=== PATIENT | male | born 1935 | race Caucasian/White ===

== ENCOUNTER 2016-11-27 11:49 | Emergency (ER) | payer MEDICARE, MEDICAID ==
[2016-11-27 11:49] VITALS: BMI 28.3
--- NOTE | 2016-11-27 13:19 | RAD ---
PROCEDURE: CHEST RADIOGRAPH, 1 VIEW HISTORY: s/p fall COMPARISON: 10/29/2015. FINDINGS: LUNGS: There are chronic changes in both lungs and linear atelectasis/scarring in the left lower lobe. PLEURA: No pneumothorax or pleural fluid seen. CARDIOVASCULAR: The heart is enlarged. There is unfolding of the aorta. Atherosclerotic aortic arch calcifications are present. OSSEOUS STRUCTURES: No significant abnormalities. VISUALIZED UPPER ABDOMEN: Normal. OTHER FINDINGS: None. IMPRESSION: Linear atelectasis/ scarring in the left lower lobe. No active pulmonary disease.
--- NOTE | 2016-11-27 14:31 | C.PDOC ---
History Of Present Illness Pt fell while coming out of the shower. Witnessed by home health aid. No head injury or LOC. Denies dizziness. - HPI Time Seen by Provider: 11/27/16 12:03 Chief Complaint (Nursing): Trauma History Per: Patient, Family (Daughter), Other (Home health aid) Injury Occurred (Timing): Just Before Arrival Location Of Injury: Right: Back, Shoulder Severity: Moderate - Fall Fall:Prior To Injury: Slipped, Lost Balance Past Medical History Reviewed: Historical Data, Nursing Documentation, Vital Signs Vital Signs: Last Vital Signs Temp 97.8 F 11/27/16 14:21 Pulse 94 H 11/27/16 14:21 Resp 18 11/27/16 14:21 BP 156/84 H 11/27/16 14:21 Pulse Ox 94 L 11/27/16 14:33 - Medical History PMH: HTN, Hypercholesterolemia, Hyperlipidemia, Hypothyroidism Family History: States: Unknown Family Hx - Social History Hx Alcohol Use: Yes (hx, pt denies alcohol) Hx Substance Use: No - Immunization History Hx Tetanus Toxoid Vaccination: No Hx Influenza Vaccination: No Hx Pneumococcal Vaccination: Yes Review Of Systems Except As Marked, All Systems Reviewed And Found Negative. Constitutional: Negative for: Fever Cardiovascular: Negative for: Chest Pain Respiratory: Negative for: Shortness of Breath, Hemoptysis Gastrointestinal: Negative for: Vomiting, Abdominal Pain Musculoskeletal: Positive for: Shoulder Pain (right). Negative for: Neck Pain Skin: Negative for: Rash Neurological: Negative for: Weakness, Numbness, Seizures, Altered Mental Status , Headache Physical Exam - Physical Exam Appears: Non-toxic, No Acute Distress Skin: Normal Color, Warm, Dry, No Rash Head: Atraumatic, Normacephalic Eye(s): bilateral: Normal Inspection, PERRL, EOMI Neck: Normal ROM, No Midline Cervical Tenderness, No Step Off Deformity, Supple Chest: Symmetrical, No Deformity Cardiovascular: Rhythm Regular Respiratory: Normal Breath Sounds, No Accessory Muscle Use Gastrointestinal/Abdominal: Soft, No Tenderness Back: No Vertebral Tenderness Extremity: Tenderness (around right shoulder region), No Deformity Pulses: Right Radial: Normal Neurological/Psych: Normal Motor, Normal Sensation ED Course And Treatment - Radiology CXR: Viewed By Me, Read By Radiologist CXR Interpretation: Yes: No Acute Disease Nexus Criteria: Negative - Other Rad Right shoulder/elbow x-rays X-Ray: Interpreted by Me, Viewed By Me Interpretation: No acute fx or dislocation. Progress Note: Pt states pain resolved after Tylenol. Right arm placed in a sling. Reassessment Condition: Improved Disposition Counseled Patient/Family Regarding: Studies Performed, Diagnosis, Need For Followup, Rx Given - Disposition Referrals: Angelic More MD [Medical Doctor] - Disposition Time: 14:39 Condition: IMPROVED Additional Instructions: Follow up with your doctor. Return to the ER if you develop redness, swelling, weakness, numbness, shortness of breath, worsening of symptoms or if you have any other concerns. Prescriptions: traMADol/Acetaminophen [Ultracet 325 MG-37.5 MG] 1 tab PO Q4 PRN #30 tab PRN Reason: Pain Instructions: Fall Prevention for Older Adults (ED), Shoulder Sprain (ED) Forms: [employer] (Danish) - Clinical Impression Clinical Impression: Right shoulder injury, Fall at home
[2016-11-27 14:50] VITALS: BP 174/94; PULSE 76; RESP 20; TEMP 97.5; O2SAT 98
--- NOTE | 2016-11-27 16:14 | RAD ---
PROCEDURE: Radiographs of the right elbow. HISTORY: Pain s/p fall COMPARISON: No prior. FINDINGS: BONES: Coronoid spurring. No fracture. JOINTS: Normal. No osteoarthritis. SOFT TISSUES: Normal. JOINT EFFUSION: None. OTHER FINDINGS: None. IMPRESSION: No fracture or gross dislocation. Study is obliqued. Recommend repeat true lateral view for more optimal assessment
--- NOTE | 2016-11-27 16:21 | RAD ---
HISTORY: Upper back pain s/p fall COMPARISON: No prior. FINDINGS: BONES: There is compression deformity at the thoraco lumbar junction on the lateral view and compression deformities and/or prominent Schmorl's node indentation superior endplate concave margins of the upper lumbar spine also suggested. No gross retropulsed ossific fragments noted. DISC SPACES: Thoraco lumbar disc space narrowing SOFT TISSUES: Normal. OTHER FINDINGS: IMPRESSION: Generalized osteopenia, diffuse thoraco lumbar spondylosis with a compression deformities at the thoracolumbar junction probably involving the upper lumbar spine -the chronicity of which is unknown. Findings were called in to the ER and given to Dr. Sterling on November 27 2016 at 4:20 p.m.. Lumbar spine x-ray imaging as well .
--- NOTE | 2016-11-27 16:29 | RAD ---
PROCEDURE: Radiographs of the Right Shoulder HISTORY: Pain s/p fall COMPARISON: No prior. FINDINGS: BONES: A fracture of the inferior scapula which appears slightly displaced on these views is suggested. . Concomitant right rib fracture(s) -possibly the right 6th lateral fracture also needs to be considered JOINTS: The acromioclavicular joint is arthropathic. No glenohumeral joint dislocation seen. Glenohumeral arthrosis also suggested. SOFT TISSUES: Normal. OTHER FINDINGS: IMPRESSION: Inferior comminuted right scapular fracture. Concomitant right lateral rib fracture possibly lateral right 6th rib fracture also suspect. No gross pneumothorax seen on available images Findings were also called in to the ER and directly given to Dr. Sterling on 11/27/2016 at 4:25 p.m.
--- NOTE | 2016-11-28 12:24 | CARD ---
APPROVED REPORT EKG Measurement Heart [id number] <Conclusion> Normal sinus rhythm Left axis deviation Left ventricular hypertrophy with repolarization abnormality Abnormal ECG
== END 2016-11-27 14:54 | disposition home or self-care (01) ==
LOC: C.ER 11:49
DX: S49.91XA Unspecified injury of right shoulder and upper arm, initial encounter (principal); W01.0XXA Fall on same level from slipping, tripping and stumbling without subsequent striking against object, initial encounter; Y93.89 Activity, other specified; Y92.002 Bathroom of unspecified non-institutional (private) residence as the place of occurrence of the external cause

== ENCOUNTER 2017-01-19 21:51 | Inpatient (IN) | payer MEDICARE, MEDICAID ==
--- NOTE | 2017-01-19 22:00 | C.PDOC ---
History Of Present Illness as per family, pt woke up with low grade fever, . in the afternood, after eating took a nap and woke up more confused , 89-90 % saturation and febrile. Family gave 1000 mg po tylenol around 8PM. States he also had some chills. Time Seen by Provider: 01/19/17 21:56 Chief Complaint (Nursing): Weakness/Neurological Deficit Past Medical History Reviewed: Historical Data, Nursing Documentation, Vital Signs Vital Signs: Last Vital Signs Temp 102.3 F H 01/19/17 23:32 Pulse 107 H 01/19/17 23:32 Resp 16 01/19/17 23:32 BP 108/69 01/19/17 23:32 Pulse Ox 93 L 01/19/17 23:32 - Medical History PMH: HTN, Hypercholesterolemia, Hyperlipidemia, Hypothyroidism Denies: Chronic Kidney Disease Family History: States: No Known Family Hx - Social History Hx Alcohol Use: Yes (hx, pt denies alcohol) Hx Substance Use: No - Immunization History Hx Tetanus Toxoid Vaccination: No Hx Influenza Vaccination: No Hx Pneumococcal Vaccination: Yes Review Of Systems Review Of Systems: ROS cannot be obtained secondary to pt's inabilty to answer questions. Physical Exam - Physical Exam Appears: Non-toxic, Confused Skin: Dry Head: Normacephalic Eye(s): bilateral: Normal Inspection Oral Mucosa: Dry Neck: Trachea Midline, Supple Chest: Symmetrical Cardiovascular: Rhythm Regular (tachy) Respiratory: Decreased Breath Sounds, No Rales, Rhonchi, No Wheezing Gastrointestinal/Abdominal: Soft, No Tenderness, No Distention Back: No CVA Tenderness Extremity: No Tenderness, No Pedal Edema Extremity: Bilateral: Atraumatic, No Pedal Edema, Normal Color And Temperature Pulses: Left Dorsalis Pedis: Normal, Right Dorsalis Pedis: Normal Neurological/Psych: Slow To Respond With Command, Other (aaox1, 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 No: Fracture, Pnemothorax Progress Note: 10:55 pm code sepsis called. 11pm pt feels better. vitals stable Critical Care Time - Critical Care Note Total Time (in mins): 30 Documented critical care: time excludes all time spent performing seperately billable procedures. Disposition Discussed With : Veronica Carter Comment: accepted the pt on his service and took over the care at 11:01 PM Doctor Will See Patient In The: Hospital Counseled Patient/Family Regarding: Studies Performed, Diagnosis - Disposition Disposition: HOSPITALIZED Disposition Time: 22:00 Condition: GUARDED - POA Present On Arrival: Poor Glycemic Control - Clinical Impression Clinical Impression: Pneumonia, UTI (urinary tract infection)
[2017-01-19 22:01] VITALS: BMI 25.0
[2017-01-19] MEDS ORDERED: Sodium Chloride 0.9% 1,000 ML IV ONE (22:01)
[2017-01-19] MEDS: Albuterol-Ipratrop 3 mg / 0.5 (3 ml) UD IH SCH ×3 (22:15→22:45)
[2017-01-19 22:27] LABS: BASO % 0.2 % (0.0-2.0); HEMATOCRIT 47.2 % (35.0-51.0); LYMPH # 0.3 K/uL (1.0-4.3); LYMPH % 1.6 % (20.0-40.0); MEAN CELL VOLUME 96.4 fL (80.0-94.0); MEAN CORPUSCULAR HEMOGLOBIN 31.9 pg (27.0-31.0); MEAN CORPUSCULAR HGB CONC 33.1 g/dL (33.0-37.0); MEAN PLATELET VOLUME 10.2 fL (7.2-11.7); MONO # 0.4 K/uL (0.0-0.8); MONO % 2.2 % (0.0-10.0); PLATELET COUNT 200 K/uL (130-400); RED CELL DISTRIBUTION WIDTH 15.2 % (11.5-14.5); WHITE BLOOD COUNT 15.8 K/uL (4.8-10.8)
[2017-01-19 22:32] LABS: RBC URINE 17 /hpf (0-3); URINE BACTERIA MANY (<OCC); URINE BILIRUBIN NEGATIVE (NEGATIVE); URINE BLOOD 2+ (NEGATIVE); URINE COLOR Yellow (YELLOW); URINE GLUCOSE (UA) NORMAL (Normal); URINE KETONE TRACE mg/dL (NEGATIVE); URINE LEUKOCYTE ESTERASE 3+ Leu/uL (Negative); URINE PROTEIN 1+ mg/dL (NEGATIVE); URINE UROBILINOGEN NORMAL mg/dL (0.2-1.0); WBC CLUMPS MANY /hpf; WBC URINE 343 /hpf (0-5)
[2017-01-19] MEDS ORDERED: Albuterol-Ipratrop 3 mg / 0.5 (3 ml) UD ONE (22:32)
[2017-01-19] MEDS ORDERED: cefTRIAXone IV 1 gm in Dextros 50 ML IVPB ONE ×2 (22:35→22:41)
[2017-01-19] MEDS ORDERED: Azithromycin 500mg/250ML NS 500 MG/250 ML BAG IVPB STA (22:35)
[2017-01-19 22:36] LABS: INR 1.1
[2017-01-19 22:39] LABS: VENOUS BLOOD GAS BASE EXCESS -1.1 mmol/L (0.0-2.0); VENOUS BLOOD GAS PCO2 38 mmHg (40-60)
[2017-01-19] MEDS ORDERED: Azithromycin 500mg/250ML NS 500 MG/250 ML BAG IVPB ONE (22:41)
[2017-01-19 22:54] LABS: NEUTROPHIL 95 % (50-75); TOTAL CELLS COUNTED 100
[2017-01-19 22:56] LABS: CHLORIDE 105 mmol/L (98-107)
[2017-01-19 22:57] LABS: POTASSIUM 3.4 mmol/L (3.6-5.2); SODIUM 141 mmol/L (132-148)
[2017-01-19 22:59] LABS: ALKALINE PHOSPHATASE 267 U/L (38-126); ALT/SGPT 46 U/L (21-72); AST/SGOT 64 U/L (17-59); BILIRUBIN,TOTAL 0.8 mg/dL (0.2-1.3); BLOOD UREA NITROGEN 20 mg/dL (9-20); CARBON DIOXIDE 21 mmol/L (22-30); GFR AFRICAN-AMERICAN > 60; TOTAL PROTEIN 6.6 g/dL (6.3-8.3)
[2017-01-19 23:00] LABS: CALCIUM 8.8 mg/dl (8.6-10.4); GLUCOSE,RANDOM 207 mg/dL (75-110)
[2017-01-20] MEDS: Piperacill/Tazo 3.375gm in Dex 3.375 GM/50 ML BAG IVPB SCH ×4 (00:33→17:47)
[2017-01-20 01:07] LABS: VENOUS BLOOD GAS BASE EXCESS -5.5 mmol/L (0.0-2.0); VENOUS BLOOD GAS PCO2 28 mmHg (40-60); VENOUS BLOOD PH 7.41 (7.32-7.43)
[2017-01-20] MEDS: Levothyroxine 200 MCG TAB PO SCH (05:59)
--- NOTE | 2017-01-20 08:05 | RAD ---
Chest x-ray single frontal view History: Shortness of breath. Comparison: None available. Findings: Biapical pleural thickening with upper lobe granulomatous changes. Moderate venous congestion. Patchy confluent bibasilar airspace opacities with small loculated left and trace right pleural effusion. Tortuous ectatic aorta. Cardiomegaly. Degenerative changes in the spine with paravertebral osteophytes. Impression: Biapical pleural thickening with upper lobe granulomatous changes. Moderate venous congestion. Patchy confluent bibasilar airspace opacities with small loculated left and trace right pleural effusion. Tortuous ectatic aorta. Cardiomegaly.
[2017-01-20] MEDS: (Novolog) Insulin Aspart, Recombinant 100 u/ml 10 ml vial SC SCH ×4 (08:30→21:45)
[2017-01-20] MEDS ORDERED: DUTASTERIDE 0.5 MG PO SCH (10:00)
[2017-01-20] MEDS ORDERED: MEMANTINE HCL 10 MG PO SCH (10:00)
[2017-01-20] MEDS ORDERED: Home Med 1 UNIT (Multivitamin [Multivitamins] 1 EACH) PO SCH (10:00)
[2017-01-20] MEDS: Enoxaparin 40 mg Syringe SC SCH (10:35)
--- NOTE | 2017-01-20 11:16 | CP.PCM.HP ---
History of Present Illness - History of Present Illness History of Present Illness: 81 y/o male brought in for fever and AMS. Pt is found to have PNA and UTI. Denies CP, SOB, Abd pain or dizziness. Reports cough Present on Admission - Present on Admission Any Indicators Present on Admission: No History of DVT/PE: No History of Uncontrolled Diabetes: No Urinary Catheter: No Decubitus Ulcer Present: No Review of Systems - Review of Systems All systems: reviewed and no additional remarkable complaints except (As mentioned in HPI) Past Patient History - Infectious Disease Hx of Infectious Diseases: None - Past Medical History & Family History Past Medical History?: Yes - Past Social History Smoking Status: Never Smoked - CARDIAC Hx Cardiac Disorders: Yes Hx Hypercholesterolemia: Yes Hx Hypertension: Yes - PULMONARY Hx Respiratory Disorders: No - NEUROLOGICAL Hx Neurological Disorder: Yes HX Cerebrovascular Accident: Yes Hx Dementia: Yes - HEENT Hx HEENT Problems: No - RENAL Hx Chronic Kidney Disease: No - ENDOCRINE/METABOLIC Hx Endocrine Disorders: Yes Hx Hypothyroidism: Yes - HEMATOLOGICAL/ONCOLOGICAL Hx Blood Disorders: No - INTEGUMENTARY Hx Dermatological Problems: No - MUSCULOSKELETAL/RHEUMATOLOGICAL Hx Musculoskeletal Disorders: No Hx Falls: No - GASTROINTESTINAL Hx Gastrointestinal Disorders: No - GENITOURINARY/GYNECOLOGICAL Hx Genitourinary Disorders: Yes Hx Prostate Problems: Yes - PSYCHIATRIC Hx Psychophysiologic Disorder: No Hx Substance Use: No - SURGICAL HISTORY Hx Surgeries: Yes Hx Thyroidectomy: Yes Other/Comment: prostate surgery - ANESTHESIA Hx Anesthesia: Yes Hx Anesthesia Reactions: No Hx Malignant Hyperthermia: No Meds Allergies/Adverse Reactions: Allergies Allergy/AdvReac Type Severity Reaction Status Date / Time No Known Allergies Allergy Verified 01/19/17 22:09 Physical Exam - Head Exam Head Exam: NORMAL INSPECTION, NORMOCEPHALIC - Eye Exam Eye Exam: Normal appearance - ENT Exam ENT Exam: Mucous Membranes Moist - Respiratory Exam Respiratory Exam: Rales, Rhonchi - Cardiovascular Exam Cardiovascular Exam: REGULAR RHYTHM, +S1, +S2 - GI/Abdominal Exam GI & Abdominal Exam: Normal Bowel Sounds, Soft - Extremities Exam Extremities exam: Positive for: normal inspection - Psychiatric Exam Psychiatric exam: Normal Affect Results - Vital Signs Recent Vital Signs: Last Vital Signs Temp 97.8 F 01/20/17 07:40 Pulse 71 01/20/17 07:40 Resp 20 01/20/17 07:40 BP 121/72 01/20/17 07:40 Pulse Ox 96 01/20/17 07:40 - Labs Result Diagrams: 01/19/17 22:24 01/19/17 22:43 Labs: Laboratory Results - last 24 hr 01/19/17 01/19/17 01/19/17 22:24 22:24 22:24 WBC 15.8 H D RBC 4.90 Hgb 15.6 D Hct 47.2 MCV 96.4 H MCH 31.9 H MCHC 33.1 RDW 15.2 H Plt Count 200 MPV 10.2 Neut % (Auto) 96.0 H Lymph % (Auto) 1.6 L [place] % (Auto) 2.2 Eos % (Auto) 0.0 Baso % (Auto) 0.2 Neut # 15.1 H Lymph # 0.3 L [place] # 0.4 Eos # 0.0 Baso # 0.0 Neutrophils % (Manual) 95 H Band Neutrophils % 2 Lymphocytes % (Manual) 1 L Monocytes % (Manual) 2 Platelet Estimate Normal PT 12.4 H INR 1.1 APTT 36 H pO2 VBG pH VBG pCO2 VBG HCO3 VBG Total CO2 VBG O2 Sat (Calc) VBG Base Excess VBG Potassium Sodium Chloride Glucose Lactate Crit Value Called To Crit Value Called By Crit Value Read Back Blood Gas Notified Time Potassium Carbon Dioxide Anion Gap BUN Creatinine Est GFR ( Amer) Est GFR (Non-Af Amer) POC Glucose (mg/dL) Random Glucose Calcium Total Bilirubin AST ALT Alkaline Phosphatase NT-Pro-B Natriuret Pep Total Protein Albumin Globulin Albumin/Globulin Ratio Venous Blood Potassium Urine Color Yellow Urine Clarity Hazy Urine pH 6.0 Ur Specific [place] 1.015 Urine Protein 1+ H Urine Glucose (UA) Normal Urine Ketones Trace Urine Blood 2+ H Urine Nitrate Positive H Urine Bilirubin Negative Urine Urobilinogen Normal Ur Leukocyte Esterase 3+ H Urine WBC (Auto) 343 H Urine RBC (Auto) 17 H Urine WBC Clumps (Auto) Many H Ur Squamous Epith Cells 4 Urine Bacteria Many H Serum Ketones 01/19/17 01/19/17 01/20/17 22:30 22:43 01:00 WBC RBC Hgb Hct MCV MCH MCHC RDW Plt Count MPV Neut % (Auto) Lymph % (Auto) [place] % (Auto) Eos % (Auto) Baso % (Auto) Neut # Lymph # [place] # Eos # Baso # Neutrophils % (Manual) Band Neutrophils % Lymphocytes % (Manual) Monocytes % (Manual) Platelet Estimate PT INR APTT pO2 46 61 H VBG pH 7.40 7.41 VBG pCO2 38 L 28 L VBG HCO3 23.6 20.5 VBG Total CO2 24.7 18.6 L VBG O2 Sat (Calc) 84.8 H 94.0 H VBG Base Excess -1.1 L -5.5 L VBG Potassium 3.7 2.2 L* Sodium 139.0 141 142.0 Chloride 109.0 H 105 115.0 H Glucose 240 H 214 H Lactate 2.2 H 1.4 Crit Value Called To Constantin lloyd/rn 6t Crit Value Called By Eddy sainz/rt Crit Value Read Back Y Blood Gas Notified Time 110 Potassium 3.4 L Carbon Dioxide 21 L Anion Gap 18 BUN 20 Creatinine 1.0 Est GFR ( Amer) > 60 Est GFR (Non-Af Amer) > 60 POC Glucose (mg/dL) Random Glucose 207 H Calcium 8.8 Total Bilirubin 0.8 AST 64 H ALT 46 Alkaline Phosphatase 267 H NT-Pro-B Natriuret Pep 439 Total Protein 6.6 Albumin 3.3 L Globulin 3.3 Albumin/Globulin Ratio 1.0 Venous Blood Potassium 3.7 2.2 L* Urine Color Urine Clarity Urine pH Ur Specific [place] Urine Protein Urine Glucose (UA) Urine Ketones Urine Blood Urine Nitrate Urine Bilirubin Urine Urobilinogen Ur Leukocyte Esterase Urine WBC (Auto) Urine RBC (Auto) Urine WBC Clumps (Auto) Ur Squamous Epith Cells Urine Bacteria Serum Ketones Negative 01/20/17 07:08 WBC RBC Hgb Hct MCV MCH MCHC RDW Plt Count MPV Neut % (Auto) Lymph % (Auto) [place] % (Auto) Eos % (Auto) Baso % (Auto) Neut # Lymph # [place] # Eos # Baso # Neutrophils % (Manual) Band Neutrophils % Lymphocytes % (Manual) Monocytes % (Manual) Platelet Estimate PT INR APTT pO2 VBG pH VBG pCO2 VBG HCO3 VBG Total CO2 VBG O2 Sat (Calc) VBG Base Excess VBG Potassium Sodium Chloride Glucose Lactate Crit Value Called To Crit Value Called By Crit Value Read Back Blood Gas Notified Time Potassium Carbon Dioxide Anion Gap BUN Creatinine Est GFR ( Amer) Est GFR (Non-Af Amer) POC Glucose (mg/dL) 268 H Random Glucose Calcium Total Bilirubin AST ALT Alkaline Phosphatase NT-Pro-B Natriuret Pep Total Protein Albumin Globulin Albumin/Globulin Ratio Venous Blood Potassium Urine Color Urine Clarity Urine pH Ur Specific [place] Urine Protein Urine Glucose (UA) Urine Ketones Urine Blood Urine Nitrate Urine Bilirubin Urine Urobilinogen Ur Leukocyte Esterase Urine WBC (Auto) Urine RBC (Auto) Urine WBC Clumps (Auto) Ur Squamous Epith Cells Urine Bacteria Serum Ketones Assessment & Plan - Assessment and Plan (Free Text) Assessment: UTI PNA AMS HTN DM Zosyn and vanco Sterling cultures ID consult Losartan Accucheck Hyperglycemic control Add Promethazine DVT/GI prophalaxis
[2017-01-20] MEDS: Aspirin-Dipyridamole 200-25 mg ER Cap PO SCH ×2 (11:37→21:33)
[2017-01-20] MEDS: Multiple Vitamins Tab PO SCH (11:38)
--- NOTE | 2017-01-20 15:15 | CP.PCM.CON ---
History of Present Illness - History of Present Illness History of Present Illness: 81 yo male admitted with fever and lethargy found to have hypoxemia and infiltrates on cxr started on IV antibiotic rx - Medical History PMH: HTN, Hypercholesterolemia, Hyperlipidemia, Hypothyroidism Review of Systems - Review of Systems All systems: reviewed and no additional remarkable complaints except - Constitutional Constitutional: As Per HPI - EENT Eyes: absent: As Per HPI, Blind Spots, Blurred Vision, Change in Vision, Decreased Night Vision, Diplopia, Discharge, Dry Eye, Exophthalmos, Floaters, Irritation, Itchy Eyes, Loss of Peripheral Vision, Pain, Photophobia, Requires Corrective Lenses, Sees Flashes, Spots in Vision, Tunnel Vision, Other Visual Disturbances, Loss of Vision, Other Ears: absent: As Per HPI, Decreased Hearing, Ear Discharge, Ear Pain, Tinnitus, Abnormal Hearing, Disequilibrium, Dizziness, Other Nose/Mouth/Throat: absent: As Per HPI, Epistaxis, Nasal Congestion, Nasal Discharge, Nasal Obstruction, Nasal Trauma, Nose Pain, Post Nasal Drip, Sinus Pain, Sinus Pressure, Bleeding Gums, Change in Voice, Dental Pain, Dry Mouth, Dysphagia, Halitosis, Hoarsness, Lip Swelling, Mouth Lesions, Mouth Pain, Odynophagia, Sore Throat, Throat Swelling, Tongue Swelling, Facial Pain, Neck Pain, Neck Mass, Other - Cardiovascular Cardiovascular: absent: As Per HPI, Acrocyanosis, Chest Pain, Chest Pain at Rest , Chest Pain with Activity, Claudication, Diaphoresis, Dyspnea, Dyspnea on Exertion, Edema, Irregular Heart Rhythm, Pain Radiating to Arm/Neck/Jaw, Leg Edema, Leg Ulcers, Lightheadedness, Orthopnea, Palpitations, Paroxysmal Nocturnal Dyspnea, Pedal Edema, Radiating Pain, Rapid Heart Rate, Slow Heart Rate, Syncope, Other - Respiratory Respiratory: As Per HPI, Cough, Dyspnea. absent: Hemoptysis - Gastrointestinal Gastrointestinal: absent: As Per HPI, Abdominal Pain, Belching, Bloating, Change in Bowel Habits, Change in Stool Character, Coffee Ground Emesis, Constipation, Cramping, Diarrhea, Dyspepsia, Dysphagia, Early Satiety, Excessive Flatus, Fecal Incontinence, Heartburn, Hematemesis, Hematochezia, Loose Stools, Melena, Nausea, Odynophagia, Temesmus, Vomiting, Other - Genitourinary Genitourinary: absent: As Per HPI, Change in Urinary Stream, Difficulty Urinating, Dysuria, Flank Pain, Hematuria, Pyuria, Nocturia, Urinary Incontinence, Urinary Frequency, Urinary Hesitance, Urinary Urgency, Voiding Freq/Small Amts, Freq UTI, Hx Renal/Bladder Calculi, Hx /Renal Surgery, Bladder Distension, Other - Musculoskeletal Musculoskeletal: absent: As Per HPI, Abnormal Gait, Arthralgias, Atrophy, Back Pain, Deformity, Joint Swelling, Limited Range of Motion, Loss of Height, Muscle Cramps, Muscle Weakness, Myalgias, Neck Pain, Numbness, Radiating Pain into Limb, Stiffness, Tingling, Other - Integumentary Integumentary: absent: As Per HPI, Acne, Alopecia, Bleeding Lesions, Change in Hair, Change in Nails, Change in Pigmentation, Changing Lesions, Dry Skin, Erythema, Furuncle, Hirsutism, Lesions, New Lesions, Non-Healing Lesions, Photosensitivity, Pruritus, Rash, Skin Pain, Skin Ulcer, Sores, Striae, Swelling , Unusual Bruising, Wounds, Jaundice, Other - Neurological Neurological: absent: As Per HPI, Abnormal Gait, Abnormal Hearing, Abnormal Movements, Abnormal Speech, Behavioral Changes, Burning Sensations, Confusion, Convulsions, Disequilibrium, Dizziness, Numbness, Focal Weakness, Frequent Falls , Headaches, Lack of Coordination, Loss of Vision, Memory Loss, Paresthesias, Radicular Pain, Restless Legs, Sensory Deficit, Syncope, Tingling, Tremor, Vertigo, Weakness, Other Visual Disturbances, Other - Psychiatric Psychiatric: absent: As Per HPI, Abnormal Sleep Pattern, Anhedonia, Anxiety, Auditory Hallucinations, Behavioral Changes, Change in Appetite, Change in Libido, Confusion, Depression, Difficulty Concentrating, Hallucinations, Homicidal Ideation, Hopelessness, Irritability, Memory Loss, Mood Swings, Panic Attacks, Paranoia, Suicidal Ideation, Visual Hallucinations, Tactile Hallucinations, Other - Endocrine Endocrine: absent: As Per HPI, Change in Body Appearance, Change in Libido, Cold Intolorance, Deepening of Voice, Excessive Sweating, Fatigue, Flushing, Heat Intolorance, Increase in Ring/Shoe/Hat Size, Palpitations, Polydipsia, Polyphagia, Polyuria, Other - Hematologic/Lymphatic Hematologic: absent: As Per HPI, Easy Bleeding, Easy Bruising, Lymphadenopathy, Other Past Patient History - Infectious Disease Hx of Infectious Diseases: None - Past Medical History & Family History Past Medical History?: Yes - Past Social History Smoking Status: Never Smoked - CARDIAC Hx Cardiac Disorders: Yes Hx Hypercholesterolemia: Yes Hx Hypertension: Yes - PULMONARY Hx Respiratory Disorders: No - NEUROLOGICAL Hx Neurological Disorder: Yes HX Cerebrovascular Accident: Yes Hx Dementia: Yes - HEENT Hx HEENT Problems: No - RENAL Hx Chronic Kidney Disease: No - ENDOCRINE/METABOLIC Hx Endocrine Disorders: Yes Hx Hypothyroidism: Yes - HEMATOLOGICAL/ONCOLOGICAL Hx Blood Disorders: No - INTEGUMENTARY Hx Dermatological Problems: No - MUSCULOSKELETAL/RHEUMATOLOGICAL Hx Musculoskeletal Disorders: No Hx Falls: No - GASTROINTESTINAL Hx Gastrointestinal Disorders: No - GENITOURINARY/GYNECOLOGICAL Hx Genitourinary Disorders: Yes Hx Prostate Problems: Yes - PSYCHIATRIC Hx Psychophysiologic Disorder: No Hx Substance Use: No - SURGICAL HISTORY Hx Surgeries: Yes Hx Thyroidectomy: Yes Other/Comment: prostate surgery - ANESTHESIA Hx Anesthesia: Yes Hx Anesthesia Reactions: No Hx Malignant Hyperthermia: No Meds Allergies/Adverse Reactions: Allergies Allergy/AdvReac Type Severity Reaction Status Date / Time No Known Allergies Allergy Verified 01/19/17 22:09 - Medications Medications: Current Medications Amiodarone HCl (Cordarone) 200 mg PO DAILY [facility] Last Admin: 01/20/17 10:35 Dose: 200 mg Amlodipine Besylate (Norvasc) 5 mg PO DAILY [facility] Last Admin: 01/20/17 10:35 Dose: 5 mg Dipyridamole/Aspirin (Aggrenox 25-200 Mg) 1 ea PO Q12 [facility] Last Admin: 01/20/17 11:37 Dose: 1 ea Donepezil HCl (Aricept) 10 mg PO DAILY [facility] Last Admin: 01/20/17 10:35 Dose: 10 mg Duloxetine HCl (Cymbalta) 30 mg PO [facility] Enoxaparin Sodium (Lovenox) 40 mg SC DAILY [facility] Last Admin: 01/20/17 10:35 Dose: 40 mg Home Med (Atorvastatin Calcium [Atorvastatin Calcium]) 40 mg PO [facility] Home Med (Dutasteride [Dutasteride]) 0.5 mg PO DAILY [facility] Last Admin: 01/20/17 11:38 Dose: Not Given Home Med (Memantine Hcl [Namenda Xr]) 10 mg PO DAILY [facility] Last Admin: 01/20/17 13:19 Dose: Not Given Piperacillin Sod/Tazobactam Sod (Zosyn 3.375 Gm Iv Premix) 3.375 gm in 50 mls @ 100 mls/hr IVPB Q6H [facility] Last Admin: 01/20/17 12:33 Dose: 100 mls/hr Influenza Virus Vaccine (Afluria) 45 mcg IM .ONCE ONE Stop: 01/22/17 10:01 Insulin Aspart (Novolog) 0 unit SC ACHS [facility] PRN Reason: Protocol Last Admin: 01/20/17 12:32 Dose: 2 unit Levothyroxine Sodium (Synthroid) 200 mcg PO DAILY@0630 [facility] Last Admin: 01/20/17 05:59 Dose: 200 mcg Lisinopril (Zestril) 10 mg PO DAILY [facility] Last Admin: 01/20/17 10:35 Dose: 10 mg Losartan Potassium (Cozaar) 50 mg PO DAILY [facility] Last Admin: 01/20/17 10:35 Dose: 50 mg Multivitamins (Hexavitamin) 1 tab PO DAILY [facility] Last Admin: 01/20/17 11:38 Dose: 1 tab Nitroglycerin (Nitrostat Sl Tab) 0.4 mg SL 5XD [facility] Last Admin: 01/20/17 14:13 Dose: Not Given Pneumococcal Polyvalent Vaccine (Pneumovax 23 Vaccine) 0.5 ml IM .ONCE ONE Stop: 01/22/17 10:01 Promethazine HCl (Phenergan Syrup) 12.5 mg PO Q6 PRN PRN Reason: Cough Tramadol HCl (Ultram) 50 mg PO Q8 PRN PRN Reason: Pain, moderate (4-7) Physical Exam - Constitutional Appears: Non-toxic, Chronically Ill - Head Exam Head Exam: ATRAUMATIC, NORMAL INSPECTION, NORMOCEPHALIC - Eye Exam Eye Exam: EOMI, PERRL. absent: Scleral icterus - ENT Exam ENT Exam: Mucous Membranes Dry, Normal External Ear Exam - Neck Exam Neck exam: Negative for: Lymphadenopathy - Respiratory Exam Respiratory Exam: Decreased Breath Sounds, Rales, Rhonchi, Wheezes - Cardiovascular Exam Cardiovascular Exam: REGULAR RHYTHM, +S1, +S2 - GI/Abdominal Exam GI & Abdominal Exam: Diminished Bowel Sounds, Distended, Soft. absent: Organomegaly, Pulsatile Mass, Rebound, Rigid, Tenderness - Rectal Exam Rectal Exam: Deferred - Exam Exam: NORMAL INSPECTION - Extremities Exam Extremities exam: Positive for: pedal pulses present. Negative for: calf tenderness, pedal edema, tenderness - Back Exam Back exam: absent: CVA tenderness (L), CVA tenderness (R), paraspinal tenderness - Neurological Exam Neurological exam: Alert, CN II-XII Intact, Oriented x3, Reflexes Normal - Psychiatric Exam Psychiatric exam: Normal Mood - Skin Skin Exam: Dry, Intact Results - Vital Signs Recent Vital Signs: Last Vital Signs Temp 97.8 F 01/20/17 07:40 Pulse 71 01/20/17 07:40 Resp 20 01/20/17 07:40 BP 121/72 01/20/17 07:40 Pulse Ox 96 01/20/17 07:40 - Labs Result Diagrams: 01/19/17 22:24 01/19/17 22:43 Labs: Laboratory Results - last 24 hr 01/19/17 01/19/17 01/19/17 22:24 22:24 22:24 WBC 15.8 H D RBC 4.90 Hgb 15.6 D Hct 47.2 MCV 96.4 H MCH 31.9 H MCHC 33.1 RDW 15.2 H Plt Count 200 MPV 10.2 Neut % (Auto) 96.0 H Lymph % (Auto) 1.6 L Christian % (Auto) 2.2 Eos % (Auto) 0.0 Baso % (Auto) 0.2 Neut # 15.1 H Lymph # 0.3 L Christian # 0.4 Eos # 0.0 Baso # 0.0 Neutrophils % (Manual) 95 H Band Neutrophils % 2 Lymphocytes % (Manual) 1 L Monocytes % (Manual) 2 Platelet Estimate Normal PT 12.4 H INR 1.1 APTT 36 H pO2 VBG pH VBG pCO2 VBG HCO3 VBG Total CO2 VBG O2 Sat (Calc) VBG Base Excess VBG Potassium Sodium Chloride Glucose Lactate Crit Value Called To Crit Value Called By Crit Value Read Back Blood Gas Notified Time Potassium Carbon Dioxide Anion Gap BUN Creatinine Est GFR ( Amer) Est GFR (Non-Af Amer) POC Glucose (mg/dL) Random Glucose Calcium Total Bilirubin AST ALT Alkaline Phosphatase NT-Pro-B Natriuret Pep Total Protein Albumin Globulin Albumin/Globulin Ratio Venous Blood Potassium Urine Color Yellow Urine Clarity Hazy Urine pH 6.0 Ur Specific [place] 1.015 Urine Protein 1+ H Urine Glucose (UA) Normal Urine Ketones Trace Urine Blood 2+ H Urine Nitrate Positive H Urine Bilirubin Negative Urine Urobilinogen Normal Ur Leukocyte Esterase 3+ H Urine WBC (Auto) 343 H Urine RBC (Auto) 17 H Urine WBC Clumps (Auto) Many H Ur Squamous Epith Cells 4 Urine Bacteria Many H Serum Ketones 01/19/17 01/19/17 01/20/17 22:30 22:43 01:00 WBC RBC Hgb Hct MCV MCH MCHC RDW Plt Count MPV Neut % (Auto) Lymph % (Auto) Christian % (Auto) Eos % (Auto) Baso % (Auto) Neut # Lymph # Christian # Eos # Baso # Neutrophils % (Manual) Band Neutrophils % Lymphocytes % (Manual) Monocytes % (Manual) Platelet Estimate PT INR APTT pO2 46 61 H VBG pH 7.40 7.41 VBG pCO2 38 L 28 L VBG HCO3 23.6 20.5 VBG Total CO2 24.7 18.6 L VBG O2 Sat (Calc) 84.8 H 94.0 H VBG Base Excess -1.1 L -5.5 L VBG Potassium 3.7 2.2 L* Sodium 139.0 141 142.0 Chloride 109.0 H 105 115.0 H Glucose 240 H 214 H Lactate 2.2 H 1.4 Crit Value Called To Constantin lloyd/rn 6t Crit Value Called By Eddy sainz/rt Crit Value Read Back Y Blood Gas Notified Time 110 Potassium 3.4 L Carbon Dioxide 21 L Anion Gap 18 BUN 20 Creatinine 1.0 Est GFR ( Amer) > 60 Est GFR (Non-Af Amer) > 60 POC Glucose (mg/dL) Random Glucose 207 H Calcium 8.8 Total Bilirubin 0.8 AST 64 H ALT 46 Alkaline Phosphatase 267 H NT-Pro-B Natriuret Pep 439 Total Protein 6.6 Albumin 3.3 L Globulin 3.3 Albumin/Globulin Ratio 1.0 Venous Blood Potassium 3.7 2.2 L* Urine Color Urine Clarity Urine pH Ur Specific [place] Urine Protein Urine Glucose (UA) Urine Ketones Urine Blood Urine Nitrate Urine Bilirubin Urine Urobilinogen Ur Leukocyte Esterase Urine WBC (Auto) Urine RBC (Auto) Urine WBC Clumps (Auto) Ur Squamous Epith Cells Urine Bacteria Serum Ketones Negative 01/20/17 01/20/17 07:08 11:57 WBC RBC Hgb Hct MCV MCH MCHC RDW Plt Count MPV Neut % (Auto) Lymph % (Auto) Christian % (Auto) Eos % (Auto) Baso % (Auto) Neut # Lymph # Christian # Eos # Baso # Neutrophils % (Manual) Band Neutrophils % Lymphocytes % (Manual) Monocytes % (Manual) Platelet Estimate PT INR APTT pO2 VBG pH VBG pCO2 VBG HCO3 VBG Total CO2 VBG O2 Sat (Calc) VBG Base Excess VBG Potassium Sodium Chloride Glucose Lactate Crit Value Called To Crit Value Called By Crit Value Read Back Blood Gas Notified Time Potassium Carbon Dioxide Anion Gap BUN Creatinine Est GFR ( Amer) Est GFR (Non-Af Amer) POC Glucose (mg/dL) 268 H 214 H Random Glucose Calcium Total Bilirubin AST ALT Alkaline Phosphatase NT-Pro-B Natriuret Pep Total Protein Albumin Globulin Albumin/Globulin Ratio Venous Blood Potassium Urine Color Urine Clarity Urine pH Ur Specific [place] Urine Protein Urine Glucose (UA) Urine Ketones Urine Blood Urine Nitrate Urine Bilirubin Urine Urobilinogen Ur Leukocyte Esterase Urine WBC (Auto) Urine RBC (Auto) Urine WBC Clumps (Auto) Ur Squamous Epith Cells Urine Bacteria Serum Ketones Assessment & Plan (1) Pneumonia Status: Acute (2) UTI (urinary tract infection) Status: Acute - Assessment and Plan (Free Text) Assessment: 81 yo male with fever ciough and infiltrates on cxr slowly improving on aantibiotics await cultures
[2017-01-20] MEDS: Promethazine 12.5 mg/10 ml Syrup PO PRN (21:46)
[2017-01-20 23:23] LABS: RBC URINE 19 /hpf (0-3); URINE BACTERIA FEW (<OCC); URINE BILIRUBIN NEGATIVE (NEGATIVE); URINE BLOOD 2+ (NEGATIVE); URINE COLOR Yellow (YELLOW); URINE GLUCOSE (UA) 1+ mg/dL (Normal); URINE KETONE NEGATIVE (NEGATIVE); URINE LEUKOCYTE ESTERASE 3+ Leu/uL (Negative); URINE PROTEIN 1+ mg/dL (NEGATIVE); URINE UROBILINOGEN NORMAL mg/dL (0.2-1.0); WBC URINE 186 /hpf (0-5)
[2017-01-21] MEDS: Piperacill/Tazo 3.375gm in Dex 3.375 GM/50 ML BAG IVPB SCH ×5 (00:30→23:58)
[2017-01-21] MEDS: Levothyroxine 200 MCG TAB PO SCH (05:58)
[2017-01-21] MEDS: (Novolog) Insulin Aspart, Recombinant 100 u/ml 10 ml vial SC SCH ×4 (08:16→21:47)
[2017-01-21 08:27] LABS: BASO # 0.1 K/uL (0.0-0.2); BASO % 0.5 % (0.0-2.0); EOS # 0.1 K/uL (0.0-0.7); EOS % 0.5 % (0.0-4.0); HEMATOCRIT 41.8 % (35.0-51.0); LYMPH # 1.1 K/uL (1.0-4.3); LYMPH % 7.8 % (20.0-40.0); MEAN CELL VOLUME 96.8 fL (80.0-94.0); MEAN CORPUSCULAR HEMOGLOBIN 31.7 pg (27.0-31.0); MEAN CORPUSCULAR HGB CONC 32.8 g/dL (33.0-37.0); MEAN PLATELET VOLUME 10.3 fL (7.2-11.7); MONO # 1.7 K/uL (0.0-0.8); MONO % 11.4 % (0.0-10.0); PLATELET COUNT 159 K/uL (130-400); RED CELL DISTRIBUTION WIDTH 15.1 % (11.5-14.5); WHITE BLOOD COUNT 14.5 K/uL (4.8-10.8)
[2017-01-21 08:43] LABS: CHLORIDE 105 mmol/L (98-107); POTASSIUM 3.2 mmol/L (3.6-5.2); SODIUM 141 mmol/L (132-148)
[2017-01-21 08:45] LABS: GFR AFRICAN-AMERICAN > 60
[2017-01-21 08:46] LABS: ALB/GLOB RATIO 0.8 (1.0-2.1); ALKALINE PHOSPHATASE 165 U/L (38-126); ALT/SGPT 52 U/L (21-72); AST/SGOT 48 U/L (17-59); BILIRUBIN,TOTAL 0.5 mg/dL (0.2-1.3); BLOOD UREA NITROGEN 19 mg/dL (9-20); CALCIUM 8.5 mg/dl (8.6-10.4); CARBON DIOXIDE 25 mmol/L (22-30); GLUCOSE,RANDOM 138 mg/dL (75-110); TOTAL PROTEIN 5.5 g/dL (6.3-8.3)
[2017-01-21] MEDS: Aspirin-Dipyridamole 200-25 mg ER Cap PO SCH ×2 (09:19→21:48)
[2017-01-21] MEDS: Multiple Vitamins Tab PO SCH (09:20)
[2017-01-21] MEDS: Enoxaparin 40 mg Syringe SC SCH (09:20)
[2017-01-21 09:49] LABS: BASOPHIL 1 % (0-2); NEUTROPHIL 79 % (50-75); TOTAL CELLS COUNTED 100
[2017-01-21 09:50] LABS: LARGE PLATELETS PRESENT
[2017-01-21] MEDS ORDERED: MEMANTINE HCL 10 MG PO SCH (10:00)
--- NOTE | 2017-01-21 11:15 | CP.PCM.PN ---
Subjective - Date & Time of Evaluation Date of Evaluation: 01/21/17 Time of Evaluation: 09:00 - Subjective Subjective: blood and urine c/s + Gram Neg Rods IV rx in progress consider eval cont rx for 14 days min Objective - Vital Signs/Intake and Output Vital Signs (last 24 hours): Temp Pulse Resp BP Pulse Ox 98.2 F 64 20 125/54 L 97 01/21/17 08:28 01/21/17 08:28 01/21/17 08:28 01/21/17 08:28 01/21/17 08:28 Intake and Output: 01/21/17 01/21/17 06:59 18:59 Intake Total 550 Balance 550 - Medications Medications: Current Medications Amiodarone HCl (Cordarone) 200 mg PO DAILY [facility] Last Admin: 01/21/17 09:19 Dose: 200 mg Amlodipine Besylate (Norvasc) 5 mg PO DAILY [facility] Last Admin: 01/21/17 09:19 Dose: 5 mg Dipyridamole/Aspirin (Aggrenox 25-200 Mg) 1 ea PO Q12 [facility] Last Admin: 01/21/17 09:19 Dose: 1 ea Donepezil HCl (Aricept) 10 mg PO DAILY [facility] Last Admin: 01/21/17 09:20 Dose: 10 mg Duloxetine HCl (Cymbalta) 30 mg PO HS [facility] Last Admin: 01/20/17 21:33 Dose: 30 mg Enoxaparin Sodium (Lovenox) 40 mg SC DAILY [facility] Last Admin: 01/21/17 09:20 Dose: 40 mg Finasteride (Proscar) 5 mg PO DAILY [facility] Last Admin: 01/21/17 09:19 Dose: 5 mg Home Med (Memantine Hcl [Namenda Xr]) 10 mg PO DAILY [facility] Piperacillin Sod/Tazobactam Sod (Zosyn 3.375 Gm Iv Premix) 3.375 gm in 50 mls @ 100 mls/hr IVPB Q6H [facility] Last Admin: 01/21/17 05:57 Dose: 100 mls/hr Influenza Virus Vaccine (Afluria) 45 mcg IM .ONCE ONE Stop: 01/22/17 10:01 Insulin Aspart (Novolog) 0 unit SC ACHS [facility] PRN Reason: Protocol Last Admin: 01/21/17 08:16 Dose: 1 unit Levothyroxine Sodium (Synthroid) 200 mcg PO DAILY@0630 [facility] Last Admin: 01/21/17 05:58 Dose: 200 mcg Lisinopril (Zestril) 10 mg PO DAILY [facility] Last Admin: 01/21/17 09:20 Dose: 10 mg Losartan Potassium (Cozaar) 50 mg PO DAILY [facility] Last Admin: 01/21/17 09:20 Dose: 50 mg Multivitamins (Hexavitamin) 1 tab PO DAILY [facility] Last Admin: 01/21/17 09:20 Dose: 1 tab Pneumococcal Polyvalent Vaccine (Pneumovax 23 Vaccine) 0.5 ml IM .ONCE ONE Stop: 01/22/17 10:01 Promethazine HCl (Phenergan Syrup) 12.5 mg PO Q6 PRN PRN Reason: Cough Last Admin: 01/20/17 21:46 Dose: 12.5 mg Rosuvastatin Calcium (Crestor) 20 mg PO HS [facility] Last Admin: 01/20/17 21:33 Dose: 20 mg Tramadol HCl (Ultram) 50 mg PO Q8 PRN PRN Reason: Pain, moderate (4-7) - Labs Labs: 01/21/17 08:17 01/21/17 08:17 PT 12.4 SECONDS (9.7-12.2) H 01/19/17 22:24 INR 1.1 01/19/17 22:24 APTT 36 SECONDS (21-34) H 01/19/17 22:24 - Constitutional Appears: Non-toxic, Chronically Ill - Head Exam Head Exam: NORMOCEPHALIC - Eye Exam Eye Exam: PERRL. absent: Scleral icterus - ENT Exam ENT Exam: Mucous Membranes Dry - Neck Exam Neck Exam: absent: Lymphadenopathy - Respiratory Exam Respiratory Exam: Decreased Breath Sounds - Cardiovascular Exam Cardiovascular Exam: REGULAR RHYTHM - GI/Abdominal Exam GI & Abdominal Exam: Distended, Soft Assessment and Plan (1) Pneumonia Status: Acute (2) UTI (urinary tract infection) Status: Acute - Assessment and Plan (Free Text) Plan: cont iv rx
[2017-01-21] MEDS ORDERED: Potassium Chloride 20 mEq/15 ml LIQ UD PO ONE (14:00)
--- NOTE | 2017-01-21 14:52 | US ---
Renal ultrasound History: Bacteremia. Urinary tract infection. Comparison: None available. Technique: Real-time sonography was performed through the kidneys. Findings: Right kidney: 11.1 x 5.0 x 5.4 centimeters. Mild increased echogenicity of the renal parenchymal cortex suggestive for medical renal disease. Lower pole hypoechoic cyst measuring 9 x 8 x 8 millimeters. No evidence of hydronephrosis. Left Kidney: 11.9 x 6.2 x 6.0 centimeters. Mild increased echogenicity of the renal parenchymal cortex suggestive for medical renal disease. Upper pole hypoechoic septated cyst measuring 8.0 x 6.6 x 7.4 centimeters. Lower pole hypoechoic cyst measures 7.4 x 6.2 x 7.7 centimeters. Midpole echogenic 1.4 centimeter calculus. No evidence of hydronephrosis. Visualized urinary bladder is grossly preserved although somewhat under distended. Mild prominence of the aorta measuring up to 3 centimeters proximally. Impression: Large left renal cysts as described above, one of which in the upper pole appears septated. Small lower pole right renal cyst. 1.4 centimeter nonobstructive left renal calculus. Increased echogenicity of the bilateral renal cortices suggestive for medical renal disease. Clinical correlation.
[2017-01-21 14:57] LABS: PROSTATE SPECIFIC ANTIGEN 0.336 ng/mL (0.00-4.0)
[2017-01-21 14:58] LABS: THYROID STIMULATING HORMONE 0.76 mIU/L (0.46-4.68)
--- NOTE | 2017-01-21 18:08 | CP.PCM.PN ---
Subjective - Date & Time of Evaluation Date of Evaluation: 01/21/17 Time of Evaluation: 18:07 - Subjective Subjective: Patient seen and examined No events overnight Objective - Vital Signs/Intake and Output Vital Signs (last 24 hours): Temp Pulse Resp BP Pulse Ox 98.3 F 69 20 153/78 H 95 01/21/17 15:28 01/21/17 15:28 01/21/17 15:28 01/21/17 15:28 01/21/17 15:28 Intake and Output: 01/21/17 01/21/17 06:59 18:59 Intake Total 550 100 Output Total 300 Balance 550 -200 - Medications Medications: Current Medications Amiodarone HCl (Cordarone) 200 mg PO DAILY [facility] Last Admin: 01/21/17 09:19 Dose: 200 mg Amlodipine Besylate (Norvasc) 5 mg PO DAILY [facility] Last Admin: 01/21/17 09:19 Dose: 5 mg Dipyridamole/Aspirin (Aggrenox 25-200 Mg) 1 ea PO Q12 [facility] Last Admin: 01/21/17 09:19 Dose: 1 ea Donepezil HCl (Aricept) 10 mg PO DAILY [facility] Last Admin: 01/21/17 09:20 Dose: 10 mg Duloxetine HCl (Cymbalta) 30 mg PO HS [facility] Last Admin: 01/20/17 21:33 Dose: 30 mg Enoxaparin Sodium (Lovenox) 40 mg SC DAILY [facility] Last Admin: 01/21/17 09:20 Dose: 40 mg Finasteride (Proscar) 5 mg PO DAILY [facility] Last Admin: 01/21/17 09:19 Dose: 5 mg Piperacillin Sod/Tazobactam Sod (Zosyn 3.375 Gm Iv Premix) 3.375 gm in 50 mls @ 100 mls/hr IVPB Q6H [facility] Last Admin: 01/21/17 11:59 Dose: 100 mls/hr Influenza Virus Vaccine (Afluria) 45 mcg IM .ONCE ONE Stop: 01/22/17 10:01 Insulin Aspart (Novolog) 0 unit SC ACHS [facility] PRN Reason: Protocol Last Admin: 01/21/17 12:24 Dose: 3 unit Levothyroxine Sodium (Synthroid) 200 mcg PO DAILY@0630 [facility] Last Admin: 01/21/17 05:58 Dose: 200 mcg Lisinopril (Zestril) 10 mg PO DAILY [facility] Last Admin: 01/21/17 09:20 Dose: 10 mg Losartan Potassium (Cozaar) 50 mg PO DAILY [facility] Last Admin: 01/21/17 09:20 Dose: 50 mg Multivitamins (Hexavitamin) 1 tab PO DAILY [facility] Last Admin: 01/21/17 09:20 Dose: 1 tab Pneumococcal Polyvalent Vaccine (Pneumovax 23 Vaccine) 0.5 ml IM .ONCE ONE Stop: 01/22/17 10:01 Promethazine HCl (Phenergan Syrup) 12.5 mg PO Q6 PRN PRN Reason: Cough Last Admin: 01/20/17 21:46 Dose: 12.5 mg Rosuvastatin Calcium (Crestor) 20 mg PO [facility] Last Admin: 01/20/17 21:33 Dose: 20 mg Tramadol HCl (Ultram) 50 mg PO Q8 PRN PRN Reason: Pain, moderate (4-7) - Labs Labs: 01/21/17 08:17 01/21/17 08:17 PT 12.4 SECONDS (9.7-12.2) H 01/19/17 22:24 INR 1.1 01/19/17 22:24 APTT 36 SECONDS (21-34) H 01/19/17 22:24 - Head Exam Head Exam: NORMAL INSPECTION - Eye Exam Eye Exam: Normal appearance - ENT Exam ENT Exam: Mucous Membranes Moist - Respiratory Exam Respiratory Exam: Prolonged Expiratory Phase, Rhonchi - Cardiovascular Exam Cardiovascular Exam: REGULAR RHYTHM, +S1, +S2 - GI/Abdominal Exam GI & Abdominal Exam: Soft, Normal Bowel Sounds - Extremities Exam Extremities Exam: Pedal Edema Assessment and Plan - Assessment and Plan (Free Text) Assessment: UTI PNA AMS HTN DM Zosyn and vanco [place] cultures ID consult appreciated Awaiting cultures Losartan Accucheck Insulin sliding scale DVT/GI prophalaxis
[2017-01-22] MEDS: Piperacill/Tazo 3.375gm in Dex 3.375 GM/50 ML BAG IVPB SCH ×3 (05:31→18:45)
[2017-01-22] MEDS: Levothyroxine 200 MCG TAB PO SCH (05:31)
[2017-01-22] MEDS: (Novolog) Insulin Aspart, Recombinant 100 u/ml 10 ml vial SC SCH ×4 (07:42→21:46)
[2017-01-22 08:09] LABS: BASO # 0.1 K/uL (0.0-0.2); BASO % 0.9 % (0.0-2.0); EOS # 0.1 K/uL (0.0-0.7); EOS % 1.2 % (0.0-4.0); HEMATOCRIT 43.1 % (35.0-51.0); LYMPH # 1.2 K/uL (1.0-4.3); MEAN CELL VOLUME 96.2 fL (80.0-94.0); MEAN CORPUSCULAR HEMOGLOBIN 31.8 pg (27.0-31.0); MEAN PLATELET VOLUME 9.6 fL (7.2-11.7); MONO # 1.1 K/uL (0.0-0.8); MONO % 11.2 % (0.0-10.0); RED CELL DISTRIBUTION WIDTH 14.6 % (11.5-14.5); WHITE BLOOD COUNT 9.9 K/uL (4.8-10.8)
[2017-01-22 08:16] LABS: CHLORIDE 103 mmol/L (98-107); POTASSIUM 3.3 mmol/L (3.6-5.2); SODIUM 140 mmol/L (132-148)
[2017-01-22 08:19] LABS: BLOOD UREA NITROGEN 13 mg/dL (9-20); CARBON DIOXIDE 26 mmol/L (22-30); GFR AFRICAN-AMERICAN > 60
[2017-01-22 08:20] LABS: CALCIUM 8.5 mg/dl (8.6-10.4); GLUCOSE,RANDOM 126 mg/dL (75-110)
[2017-01-22] MEDS: Enoxaparin 40 mg Syringe SC SCH (09:44)
[2017-01-22] MEDS: Promethazine 12.5 mg/10 ml Syrup PO PRN (09:45)
[2017-01-22] MEDS: Multiple Vitamins Tab PO SCH (09:45)
[2017-01-22] MEDS: Aspirin-Dipyridamole 200-25 mg ER Cap PO SCH ×2 (09:46→21:45)
[2017-01-22] MEDS ORDERED: Influenza Virus Vaccine (Afluria Inactive dont use ) IM ONE (10:00)
[2017-01-22] MEDS ORDERED: Pneumococcal 23-Valent Vaccine IM ONE (10:00)
--- NOTE | 2017-01-22 12:11 | CP.PCM.PN ---
Subjective - Date & Time of Evaluation Date of Evaluation: 01/22/17 Time of Evaluation: 08:00 - Subjective Subjective: blood and urine c/s + Gram Neg Rods IV rx in progress consider eval cont rx for 14 days min Objective - Vital Signs/Intake and Output Vital Signs (last 24 hours): Temp Pulse Resp BP Pulse Ox 97.8 F 67 18 168/86 H 95 01/22/17 07:55 01/22/17 07:55 01/22/17 07:55 01/22/17 07:55 01/22/17 07:55 - Medications Medications: Current Medications Amiodarone HCl (Cordarone) 200 mg PO DAILY [facility] Last Admin: 01/22/17 09:45 Dose: 200 mg Amlodipine Besylate (Norvasc) 5 mg PO DAILY [facility] Last Admin: 01/22/17 09:45 Dose: 5 mg Dipyridamole/Aspirin (Aggrenox 25-200 Mg) 1 ea PO Q12 [facility] Last Admin: 01/22/17 09:46 Dose: 1 ea Donepezil HCl (Aricept) 10 mg PO DAILY [facility] Last Admin: 01/22/17 09:46 Dose: 10 mg Duloxetine HCl (Cymbalta) 30 mg PO HS [facility] Last Admin: 01/21/17 21:48 Dose: 30 mg Enoxaparin Sodium (Lovenox) 40 mg SC DAILY [facility] Last Admin: 01/22/17 09:44 Dose: 40 mg Finasteride (Proscar) 5 mg PO DAILY [facility] Last Admin: 01/22/17 09:45 Dose: 5 mg Piperacillin Sod/Tazobactam Sod (Zosyn 3.375 Gm Iv Premix) 3.375 gm in 50 mls @ 100 mls/hr IVPB Q6H [facility] Last Admin: 01/22/17 12:06 Dose: 100 mls/hr Insulin Aspart (Novolog) 0 unit SC ACHS [facility] PRN Reason: Protocol Last Admin: 01/22/17 07:42 Dose: Not Given Levothyroxine Sodium (Synthroid) 200 mcg PO DAILY@0630 [facility] Last Admin: 01/22/17 05:31 Dose: 200 mcg Lisinopril (Zestril) 10 mg PO DAILY [facility] Last Admin: 01/22/17 09:45 Dose: 10 mg Losartan Potassium (Cozaar) 50 mg PO DAILY [facility] Last Admin: 01/22/17 09:45 Dose: 50 mg Multivitamins (Hexavitamin) 1 tab PO DAILY [facility] Last Admin: 01/22/17 09:45 Dose: 1 tab Promethazine HCl (Phenergan Syrup) 12.5 mg PO Q6 PRN PRN Reason: Cough Last Admin: 01/22/17 09:45 Dose: 12.5 mg Rosuvastatin Calcium (Crestor) 20 mg PO HS [facility] Last Admin: 01/21/17 21:48 Dose: 20 mg Tramadol HCl (Ultram) 50 mg PO Q8 PRN PRN Reason: Pain, moderate (4-7) - Labs Labs: 01/22/17 08:02 01/22/17 08:02 PT 12.4 SECONDS (9.7-12.2) H 01/19/17 22:24 INR 1.1 01/19/17 22:24 APTT 36 SECONDS (21-34) H 01/19/17 22:24 - Constitutional Appears: Non-toxic, Chronically Ill - Head Exam Head Exam: NORMOCEPHALIC - Eye Exam Eye Exam: PERRL - ENT Exam ENT Exam: Mucous Membranes Dry, Normal External Ear Exam - Neck Exam Neck Exam: absent: Lymphadenopathy - Respiratory Exam Respiratory Exam: Decreased Breath Sounds - Cardiovascular Exam Cardiovascular Exam: REGULAR RHYTHM - GI/Abdominal Exam GI & Abdominal Exam: Distended Assessment and Plan (1) Pneumonia Status: Acute (2) UTI (urinary tract infection) Status: Acute
[2017-01-22] MEDS ORDERED: Potassium Chloride 20 mEq/15 ml LIQ UD PO ONE (14:00)
--- NOTE | 2017-01-22 16:04 | CP.PCM.PN ---
Subjective - Date & Time of Evaluation Date of Evaluation: 01/22/17 Time of Evaluation: 16:02 - Subjective Subjective: Pt seen and examined No events overnight Blood and Urine Cx are positive Objective - Vital Signs/Intake and Output Vital Signs (last 24 hours): Temp Pulse Resp BP Pulse Ox 97.8 F 67 18 168/86 H 95 01/22/17 07:55 01/22/17 07:55 01/22/17 07:55 01/22/17 07:55 01/22/17 07:55 Intake and Output: 01/22/17 01/22/17 06:59 18:59 Intake Total 50 Balance 50 - Medications Medications: Current Medications Amiodarone HCl (Cordarone) 200 mg PO DAILY [facility] Last Admin: 01/22/17 09:45 Dose: 200 mg Amlodipine Besylate (Norvasc) 5 mg PO DAILY [facility] Last Admin: 01/22/17 09:45 Dose: 5 mg Dipyridamole/Aspirin (Aggrenox 25-200 Mg) 1 ea PO Q12 [facility] Last Admin: 01/22/17 09:46 Dose: 1 ea Donepezil HCl (Aricept) 10 mg PO DAILY [facility] Last Admin: 01/22/17 09:46 Dose: 10 mg Duloxetine HCl (Cymbalta) 30 mg PO HS [facility] Last Admin: 01/21/17 21:48 Dose: 30 mg Enoxaparin Sodium (Lovenox) 40 mg SC DAILY [facility] Last Admin: 01/22/17 09:44 Dose: 40 mg Finasteride (Proscar) 5 mg PO DAILY [facility] Last Admin: 01/22/17 09:45 Dose: 5 mg Piperacillin Sod/Tazobactam Sod (Zosyn 3.375 Gm Iv Premix) 3.375 gm in 50 mls @ 100 mls/hr IVPB Q6H [facility] Last Admin: 01/22/17 12:06 Dose: 100 mls/hr Insulin Aspart (Novolog) 0 unit SC ACHS [facility] PRN Reason: Protocol Last Admin: 01/22/17 12:52 Dose: 3 unit Levothyroxine Sodium (Synthroid) 200 mcg PO DAILY@0630 [facility] Last Admin: 01/22/17 05:31 Dose: 200 mcg Lisinopril (Zestril) 10 mg PO DAILY [facility] Last Admin: 09/26/17 09:45 Dose: 10 mg Losartan Potassium (Cozaar) 50 mg PO DAILY [facility] Last Admin: 01/22/17 09:45 Dose: 50 mg Multivitamins (Hexavitamin) 1 tab PO DAILY [facility] Last Admin: 01/22/17 09:45 Dose: 1 tab Promethazine HCl (Phenergan Syrup) 12.5 mg PO Q6 PRN PRN Reason: Cough Last Admin: 01/22/17 09:45 Dose: 12.5 mg Rosuvastatin Calcium (Crestor) 20 mg PO HS [facility] Last Admin: 01/21/17 21:48 Dose: 20 mg Tramadol HCl (Ultram) 50 mg PO Q8 PRN PRN Reason: Pain, moderate (4-7) - Labs Labs: 01/22/17 08:02 01/22/17 08:02 PT 12.4 SECONDS (9.7-12.2) H 01/19/17 22:24 INR 1.1 01/19/17 22:24 APTT 36 SECONDS (21-34) H 01/19/17 22:24 - Head Exam Head Exam: NORMAL INSPECTION - Eye Exam Eye Exam: Normal appearance - ENT Exam ENT Exam: Mucous Membranes Moist - Respiratory Exam Respiratory Exam: Clear to Ausculation Bilateral - Cardiovascular Exam Cardiovascular Exam: REGULAR RHYTHM, +S1, +S2 - GI/Abdominal Exam GI & Abdominal Exam: Soft, Normal Bowel Sounds - Extremities Exam Extremities Exam: Normal Inspection Assessment and Plan - Assessment and Plan (Free Text) Assessment: UTI Pneumonia AMS - now back to baseline HTN DM Hx of CVA Zosyn and vanco Follow cultures Losartan Accucheck Insulin sliding scale Urology consult DVT/GI prophalaxis
[2017-01-22 16:32] VITALS: RESP 20
[2017-01-23] MEDS: Piperacill/Tazo 3.375gm in Dex 3.375 GM/50 ML BAG IVPB SCH ×5 (00:26→23:55)
[2017-01-23] MEDS: Levothyroxine 200 MCG TAB PO SCH (05:37)
[2017-01-23] MEDS: (Novolog) Insulin Aspart, Recombinant 100 u/ml 10 ml vial SC SCH ×4 (07:17→22:37)
[2017-01-23] MEDS: Aspirin-Dipyridamole 200-25 mg ER Cap PO SCH ×2 (09:24→21:20)
[2017-01-23] MEDS: Enoxaparin 40 mg Syringe SC SCH (09:24)
[2017-01-23] MEDS: Multiple Vitamins Tab PO SCH (09:24)
--- NOTE | 2017-01-23 14:24 | CP.PCM.PN ---
Subjective - Date & Time of Evaluation Date of Evaluation: 01/23/17 Time of Evaluation: 08:00 - Subjective Subjective: weak nad Objective - Vital Signs/Intake and Output Vital Signs (last 24 hours): Temp Pulse Resp BP Pulse Ox 97.4 F L 61 20 153/84 H 94 L 01/23/17 08:05 01/23/17 08:05 01/23/17 08:05 01/23/17 08:05 01/23/17 08:05 Intake and Output: 01/23/17 01/23/17 06:59 18:59 Output Total 150 Balance -150 - Medications Medications: Current Medications Amiodarone HCl (Cordarone) 200 mg PO DAILY [facility] Last Admin: 01/23/17 09:24 Dose: 200 mg Amlodipine Besylate (Norvasc) 5 mg PO DAILY [facility] Last Admin: 01/23/17 09:24 Dose: 5 mg Dipyridamole/Aspirin (Aggrenox 25-200 Mg) 1 ea PO Q12 [facility] Last Admin: 01/23/17 09:24 Dose: 1 ea Donepezil HCl (Aricept) 10 mg PO DAILY [facility] Last Admin: 01/23/17 09:24 Dose: 10 mg Duloxetine HCl (Cymbalta) 30 mg PO HS [facility] Last Admin: 01/22/17 21:45 Dose: 30 mg Enoxaparin Sodium (Lovenox) 40 mg SC DAILY [facility] Last Admin: 01/23/17 09:24 Dose: 40 mg Finasteride (Proscar) 5 mg PO DAILY [facility] Last Admin: 01/23/17 09:24 Dose: 5 mg Piperacillin Sod/Tazobactam Sod (Zosyn 3.375 Gm Iv Premix) 3.375 gm in 50 mls @ 100 mls/hr IVPB Q6H [facility] Last Admin: 01/23/17 12:33 Dose: 100 mls/hr Insulin Aspart (Novolog) 0 unit SC ACHS [facility] PRN Reason: Protocol Last Admin: 01/23/17 13:02 Dose: 1 unit Levothyroxine Sodium (Synthroid) 200 mcg PO DAILY@0630 [facility] Last Admin: 01/23/17 05:37 Dose: 200 mcg Lisinopril (Zestril) 10 mg PO DAILY [facility] Last Admin: 01/23/17 09:24 Dose: 10 mg Losartan Potassium (Cozaar) 50 mg PO DAILY [facility] Last Admin: 01/23/17 09:24 Dose: 50 mg Multivitamins (Hexavitamin) 1 tab PO DAILY [facility] Last Admin: 01/23/17 09:24 Dose: 1 tab Promethazine HCl (Phenergan Syrup) 12.5 mg PO Q6 PRN PRN Reason: Cough Last Admin: 01/22/17 09:45 Dose: 12.5 mg Rosuvastatin Calcium (Crestor) 20 mg PO HS [facility] Last Admin: 01/22/17 21:45 Dose: 20 mg Tramadol HCl (Ultram) 50 mg PO Q8 PRN PRN Reason: Pain, moderate (4-7) - Labs Labs: 01/22/17 08:02 01/22/17 08:02 PT 12.4 SECONDS (9.7-12.2) H 01/19/17 22:24 INR 1.1 01/19/17 22:24 APTT 36 SECONDS (21-34) H 01/19/17 22:24 - Constitutional Appears: Non-toxic, Chronically Ill - Head Exam Head Exam: NORMOCEPHALIC - Eye Exam Eye Exam: PERRL - ENT Exam ENT Exam: Mucous Membranes Dry - Neck Exam Neck Exam: absent: Lymphadenopathy - Respiratory Exam Respiratory Exam: Decreased Breath Sounds, Rhonchi - Cardiovascular Exam Cardiovascular Exam: REGULAR RHYTHM - GI/Abdominal Exam GI & Abdominal Exam: Distended, Soft - Rectal Exam Rectal Exam: Deferred - Exam Exam: NORMAL INSPECTION - Extremities Exam Extremities Exam: absent: Pedal Edema - Back Exam Back Exam: absent: CVA tenderness (L), CVA tenderness (R) - Neurological Exam Neurological Exam: Alert, Awake, Oriented x3 Assessment and Plan (1) Pneumonia Status: Acute (2) UTI (urinary tract infection) Status: Acute - Assessment and Plan (Free Text) Assessment: cont iv rx
--- NOTE | 2017-01-23 18:56 | CP.PCM.PN ---
Subjective - Date & Time of Evaluation Date of Evaluation: 01/23/17 Time of Evaluation: 18:56 - Subjective Subjective: Patient seen and examined No events overnight Objective - Vital Signs/Intake and Output Vital Signs (last 24 hours): Temp Pulse Resp BP Pulse Ox 98 F 62 20 157/84 H 95 01/23/17 15:27 01/23/17 15:27 01/23/17 15:27 01/23/17 15:27 01/23/17 15:27 Intake and Output: 01/23/17 01/23/17 06:59 18:59 Intake Total 50 Output Total 150 Balance -150 50 - Medications Medications: Current Medications Amiodarone HCl (Cordarone) 200 mg PO DAILY [facility] Last Admin: 01/23/17 09:24 Dose: 200 mg Amlodipine Besylate (Norvasc) 5 mg PO DAILY [facility] Last Admin: 01/23/17 09:24 Dose: 5 mg Dipyridamole/Aspirin (Aggrenox 25-200 Mg) 1 ea PO Q12 [facility] Last Admin: 01/23/17 09:24 Dose: 1 ea Donepezil HCl (Aricept) 10 mg PO DAILY [facility] Last Admin: 01/23/17 09:24 Dose: 10 mg Duloxetine HCl (Cymbalta) 30 mg PO HS [facility] Last Admin: 01/22/17 21:45 Dose: 30 mg Enoxaparin Sodium (Lovenox) 40 mg SC DAILY [facility] Last Admin: 01/23/17 09:24 Dose: 40 mg Finasteride (Proscar) 5 mg PO DAILY [facility] Last Admin: 01/23/17 09:24 Dose: 5 mg Piperacillin Sod/Tazobactam Sod (Zosyn 3.375 Gm Iv Premix) 3.375 gm in 50 mls @ 100 mls/hr IVPB Q6H [facility] Last Admin: 01/23/17 18:38 Dose: 100 mls/hr Insulin Aspart (Novolog) 0 unit SC ACHS [facility] PRN Reason: Protocol Last Admin: 01/23/17 18:38 Dose: Not Given Levothyroxine Sodium (Synthroid) 200 mcg PO DAILY@0630 [facility] Last Admin: 01/23/17 05:37 Dose: 200 mcg Lisinopril (Zestril) 10 mg PO DAILY [facility] Last Admin: 01/23/17 09:24 Dose: 10 mg Losartan Potassium (Cozaar) 50 mg PO DAILY [facility] Last Admin: 01/23/17 09:24 Dose: 50 mg Multivitamins (Hexavitamin) 1 tab PO DAILY [facility] Last Admin: 01/23/17 09:24 Dose: 1 tab Promethazine HCl (Phenergan Syrup) 12.5 mg PO Q6 PRN PRN Reason: Cough Last Admin: 01/22/17 09:45 Dose: 12.5 mg Rosuvastatin Calcium (Crestor) 20 mg PO HS [facility] Last Admin: 01/22/17 21:45 Dose: 20 mg Tramadol HCl (Ultram) 50 mg PO Q8 PRN PRN Reason: Pain, moderate (4-7) - Labs Labs: 01/22/17 08:02 01/22/17 08:02 PT 12.4 SECONDS (9.7-12.2) H 01/19/17 22:24 INR 1.1 01/19/17 22:24 APTT 36 SECONDS (21-34) H 01/19/17 22:24 - Head Exam Head Exam: NORMAL INSPECTION - Eye Exam Eye Exam: Normal appearance - ENT Exam ENT Exam: Mucous Membranes Moist - Respiratory Exam Respiratory Exam: Clear to Ausculation Bilateral - Cardiovascular Exam Cardiovascular Exam: REGULAR RHYTHM, +S1, +S2 - GI/Abdominal Exam GI & Abdominal Exam: Soft, Normal Bowel Sounds - Extremities Exam Extremities Exam: Normal Inspection Assessment and Plan - Assessment and Plan (Free Text) Assessment: UTI Pneumonia AMS - now back to baseline HTN DM Hx of CVA Zosyn and vanco Follow cultures Losartan Accucheck Insulin sliding scale Urology consult DVT/GI prophalaxis
[2017-01-24] MEDS: Levothyroxine 200 MCG TAB PO SCH (05:34)
[2017-01-24] MEDS: Piperacill/Tazo 3.375gm in Dex 3.375 GM/50 ML BAG IVPB SCH ×4 (05:34→23:51)
[2017-01-24] MEDS: (Novolog) Insulin Aspart, Recombinant 100 u/ml 10 ml vial SC SCH ×4 (07:52→22:00)
[2017-01-24] MEDS: Multiple Vitamins Tab PO SCH (09:23)
[2017-01-24] MEDS: Aspirin-Dipyridamole 200-25 mg ER Cap PO SCH ×2 (09:23→21:05)
[2017-01-24] MEDS: Enoxaparin 40 mg Syringe SC SCH (09:23)
[2017-01-24] MEDS: Promethazine 12.5 mg/10 ml Syrup PO PRN (12:16)
--- NOTE | 2017-01-24 16:58 | RAD ---
HISTORY: renal cyst COMPARISON: No prior. FINDINGS: BOWEL: Normal. No obstruction. No free air. BONES: There is L3 compression fracture. Additional compression loss of height suggested cephalad to this probably commercial 6 to possibly L1 needed be considered. A dorsal thoracic spine x-ray report 11/27/2016 makes reference of compression deformities the chronicity of all these findings is not known. Marginal bridging osteophytes present. There are right sub cm calcifications etiology right upper quadrant and right lateral to the right L4 vertebral body. OTHER FINDINGS: And there are a larger rounded soft tissue like mass can't which may well represent this soft tissue radiographic equivalent of prior left renal ultrasound referenced cyst. IMPRESSION: No bowel obstruction. Multiple lumbar compression deformities of unknown chronicity. Correlate clinically Left sided rounded soft tissue masses consistent with renal ultrasound referenced renal cysts Indeterminate calcifications right upper quadrant and right lateral to the L4 vertebral body. Is any concern for urolithiasis consider CT urogram
--- NOTE | 2017-01-24 18:02 | CP.PCM.PN ---
Subjective - Date & Time of Evaluation Date of Evaluation: 01/24/17 Time of Evaluation: 18:02 - Subjective Subjective: Patient seen and examined No events overnight Objective - Vital Signs/Intake and Output Vital Signs (last 24 hours): Temp Pulse Resp BP Pulse Ox 98.3 F 67 20 136/86 98 01/24/17 08:29 01/24/17 08:29 01/24/17 08:29 01/24/17 08:29 01/24/17 08:29 Intake and Output: 01/24/17 01/24/17 06:59 18:59 Intake Total 350 Balance 350 - Medications Medications: Current Medications Amiodarone HCl (Cordarone) 200 mg PO DAILY [facility] Last Admin: 01/24/17 09:23 Dose: 200 mg Amlodipine Besylate (Norvasc) 5 mg PO DAILY [facility] Last Admin: 01/24/17 09:23 Dose: 5 mg Dipyridamole/Aspirin (Aggrenox 25-200 Mg) 1 ea PO Q12 [facility] Last Admin: 01/24/17 09:23 Dose: 1 ea Donepezil HCl (Aricept) 10 mg PO DAILY [facility] Last Admin: 01/24/17 09:23 Dose: 10 mg Duloxetine HCl (Cymbalta) 30 mg PO HS [facility] Last Admin: 01/23/17 21:20 Dose: 30 mg Enoxaparin Sodium (Lovenox) 40 mg SC DAILY [facility] Last Admin: 01/24/17 09:23 Dose: 40 mg Finasteride (Proscar) 5 mg PO DAILY [facility] Last Admin: 01/24/17 09:23 Dose: 5 mg Piperacillin Sod/Tazobactam Sod (Zosyn 3.375 Gm Iv Premix) 3.375 gm in 50 mls @ 100 mls/hr IVPB Q6H [facility] Last Admin: 01/24/17 17:39 Dose: 100 mls/hr Insulin Aspart (Novolog) 0 unit SC ACHS [facility] PRN Reason: Protocol Last Admin: 01/24/17 17:12 Dose: Not Given Levothyroxine Sodium (Synthroid) 200 mcg PO DAILY@0630 [facility] Last Admin: 01/24/17 05:34 Dose: 200 mcg Lisinopril (Zestril) 10 mg PO DAILY [facility] Last Admin: 01/24/17 09:23 Dose: 10 mg Losartan Potassium (Cozaar) 50 mg PO DAILY [facility] Last Admin: 01/24/17 09:23 Dose: 50 mg Multivitamins (Hexavitamin) 1 tab PO DAILY [facility] Last Admin: 01/24/17 09:23 Dose: 1 tab Promethazine HCl (Phenergan Syrup) 12.5 mg PO Q6 PRN PRN Reason: Cough Last Admin: 01/24/17 12:16 Dose: 12.5 mg Rosuvastatin Calcium (Crestor) 20 mg PO HS [facility] Last Admin: 01/23/17 21:21 Dose: 20 mg Tramadol HCl (Ultram) 50 mg PO Q8 PRN PRN Reason: Pain, moderate (4-7) - Labs Labs: 01/22/17 08:02 01/22/17 08:02 PT 12.4 SECONDS (9.7-12.2) H 01/19/17 22:24 INR 1.1 01/19/17 22:24 APTT 36 SECONDS (21-34) H 01/19/17 22:24 - Head Exam Head Exam: NORMAL INSPECTION - Eye Exam Eye Exam: Normal appearance - ENT Exam ENT Exam: Mucous Membranes Moist - Respiratory Exam Respiratory Exam: Clear to Ausculation Bilateral, NORMAL BREATHING PATTERN - Cardiovascular Exam Cardiovascular Exam: REGULAR RHYTHM, +S1, +S2 - GI/Abdominal Exam GI & Abdominal Exam: Soft, Normal Bowel Sounds - Extremities Exam Extremities Exam: Normal Inspection - Neurological Exam Neurological Exam: Alert, Oriented x3 Assessment and Plan - Assessment and Plan (Free Text) Assessment: UTI Pneumonia AMS - now back to baseline HTN DM Hx of CVA Zosyn and vanco Losartan Accucheck Insulin sliding scale Awaiting Urology consult DC planning in morning if remains stable We will discuss with ID regarding antibiotics and length of treatment DVT/GI prophalaxis
[2017-01-25] MEDS: Piperacill/Tazo 3.375gm in Dex 3.375 GM/50 ML BAG IVPB SCH ×4 (05:29→23:50)
[2017-01-25] MEDS: Levothyroxine 200 MCG TAB PO SCH (05:30)
[2017-01-25] MEDS: (Novolog) Insulin Aspart, Recombinant 100 u/ml 10 ml vial SC SCH ×4 (07:50→22:09)
[2017-01-25] MEDS: Multiple Vitamins Tab PO SCH (09:42)
[2017-01-25] MEDS: Enoxaparin 40 mg Syringe SC SCH (09:42)
[2017-01-25] MEDS: Aspirin-Dipyridamole 200-25 mg ER Cap PO SCH ×2 (09:42→21:08)
--- NOTE | 2017-01-25 13:28 | CP.PCM.PN ---
Subjective - Date & Time of Evaluation Date of Evaluation: 01/25/17 Time of Evaluation: 10:00 - Subjective Subjective: DAY 5 IV RX REPEAT BLOOD AND URINE NEG IV RX TO CONT FOR 7 DAYS THEN PO FOR ANOTHER 7 DAYS Objective - Vital Signs/Intake and Output Vital Signs (last 24 hours): Temp Pulse Resp BP Pulse Ox 97.8 F 66 20 145/85 95 01/25/17 07:35 01/25/17 07:35 01/25/17 07:35 01/25/17 07:35 01/25/17 07:35 Intake and Output: 01/25/17 01/25/17 06:59 18:59 Intake Total 200 Balance 200 - Medications Medications: Current Medications Amiodarone HCl (Cordarone) 200 mg PO DAILY [facility] Last Admin: 01/25/17 09:42 Dose: 200 mg Amlodipine Besylate (Norvasc) 5 mg PO DAILY [facility] Last Admin: 01/25/17 09:51 Dose: 5 mg Dipyridamole/Aspirin (Aggrenox 25-200 Mg) 1 ea PO Q12 [facility] Last Admin: 01/25/17 09:42 Dose: 1 ea Donepezil HCl (Aricept) 10 mg PO DAILY [facility] Last Admin: 01/25/17 09:42 Dose: 10 mg Duloxetine HCl (Cymbalta) 30 mg PO HS [facility] Last Admin: 01/24/17 21:05 Dose: 30 mg Enoxaparin Sodium (Lovenox) 40 mg SC DAILY [facility] Last Admin: 01/25/17 09:42 Dose: 40 mg Finasteride (Proscar) 5 mg PO DAILY [facility] Last Admin: 01/25/17 09:42 Dose: 5 mg Piperacillin Sod/Tazobactam Sod (Zosyn 3.375 Gm Iv Premix) 3.375 gm in 50 mls @ 100 mls/hr IVPB Q6H [facility] Last Admin: 01/25/17 12:33 Dose: 100 mls/hr Insulin Aspart (Novolog) 0 unit SC ACHS [facility] PRN Reason: Protocol Last Admin: 01/25/17 12:33 Dose: 2 unit Levothyroxine Sodium (Synthroid) 200 mcg PO DAILY@0630 [facility] Last Admin: 01/25/17 05:30 Dose: 200 mcg Lisinopril (Zestril) 10 mg PO DAILY [facility] Last Admin: 01/25/17 09:42 Dose: 10 mg Losartan Potassium (Cozaar) 50 mg PO DAILY [facility] Last Admin: 01/25/17 09:42 Dose: 50 mg Multivitamins (Hexavitamin) 1 tab PO DAILY [facility] Last Admin: 01/25/17 09:42 Dose: 1 tab Promethazine HCl (Phenergan Syrup) 12.5 mg PO Q6 PRN PRN Reason: Cough Last Admin: 01/24/17 12:16 Dose: 12.5 mg Rosuvastatin Calcium (Crestor) 20 mg PO HS [facility] Last Admin: 01/24/17 21:05 Dose: 20 mg Tramadol HCl (Ultram) 50 mg PO Q8 PRN PRN Reason: Pain, moderate (4-7) - Labs Labs: 01/22/17 08:02 01/22/17 08:02 PT 12.4 SECONDS (9.7-12.2) H 01/19/17 22:24 INR 1.1 01/19/17 22:24 APTT 36 SECONDS (21-34) H 01/19/17 22:24 - Constitutional Appears: Non-toxic, Cachectic, Chronically Ill - Head Exam Head Exam: NORMOCEPHALIC - Eye Exam Eye Exam: PERRL. absent: Scleral icterus - ENT Exam ENT Exam: Mucous Membranes Dry - Neck Exam Neck Exam: absent: Lymphadenopathy - Respiratory Exam Respiratory Exam: Decreased Breath Sounds - Cardiovascular Exam Cardiovascular Exam: REGULAR RHYTHM - GI/Abdominal Exam GI & Abdominal Exam: Distended, Soft - Rectal Exam Rectal Exam: Deferred - Exam Exam: NORMAL INSPECTION - Extremities Exam Extremities Exam: absent: Pedal Edema - Back Exam Back Exam: absent: CVA tenderness (L), CVA tenderness (R) Assessment and Plan (1) Pneumonia Status: Acute (2) UTI (urinary tract infection) Status: Acute - Assessment and Plan (Free Text) Plan: UROSEPSIS BACTEREMIA CONT IV RX FOR NOW
--- NOTE | 2017-01-25 16:29 | CT ---
PROCEDURE: CT Abdomen and Pelvis without intravenous contrast HISTORY: kidney stones COMPARISON: Comparison is made to the previous ultrasound of the kidneys dated 01/21/2017 TECHNIQUE: Axial and reformatted coronal and sagittal CT images of the abdomen and pelvis were obtained without IV or oral contrast administration.. Contrast Dose: 0 Radiation dose: Total exam DLP = 920.56 mGy-cm. This CT exam was performed using one or more of the following dose reduction techniques: Automated exposure control, adjustment of the mA and/or kV according to patient size, and/or use of iterative reconstruction technique. FINDINGS: LOWER THORAX: There is a small to moderate-size right pleural effusion associated with partial atelectasis of the right lower lobe. There is a small opacity seen at the left lower lobe may represent atelectasis. The heart is moderately enlarged. LIVER: Mild hepatomegaly is noted. No evidence of acute pathology or suspicious mass in the liver noted in this noncontrast exam. GALLBLADDER AND BILE DUCTS: Gallstones are seen associated with mild gallbladder wall thickening. No definite CT evidence of acute cholecystitis. PANCREAS: Unremarkable. No gross lesion or ductal dilatation. SPLEEN: The spleen is normal in size. There are linear calcification at the peripheral portion of the spleen of uncertain etiology. ADRENALS: Unremarkable. No mass. KIDNEYS AND URETERS: There is nonobstructing stone at the mid pole left kidney measures 13 x 4.5 millimeter. There are adjacent nonobstructing calculi at the mid pole of the left kidney. There are 2 large cystic lesions in the left kidney. The largest cyst seen at the lower pole of the left kidney measures 8.8 centimeter in the AP diameter and 7.9 centimeter in the transverse diameter. No evidence of right hydronephrosis or right renal calculi. VASCULATURE: Unremarkable. No aortic aneurysm. BOWEL: There are diffuse diverticulosis seen at the descending and sigmoid colon. No evidence of diverticulitis. APPENDIX: No evidence of appendicitis. PERITONEUM: Unremarkable. No free fluid. No free air. LYMPH NODES: Unremarkable. No enlarged lymph nodes. BLADDER: Unremarkable. REPRODUCTIVE: The prostate is mildly enlarged. BONES: There are complex fractures seen at the L1 and L3 vertebral body likely old. Diffuse osteopenia is noted. There are large anterior bridge osteophyte seen at the lumbar spine. OTHER FINDINGS: None. IMPRESSION: Multiple nonobstructing left renal calculi. The largest calculus measures 13 x 4.5 millimeter. No evidence of hydronephrosis or hydroureter. Two large cystic lesion at the left kidney. Multiple descending and sigmoid colon diverticulosis without evidence of diverticulitis. Small to moderate size right pleural effusion associated with partial atelectasis of the right lower lobe. Gallstones without CT evidence of acute cholecystitis. Diffuse osteopenia. Compression deformity of L1 and L3 likely old.
--- NOTE | 2017-01-25 17:57 | CP.PCM.PN ---
Subjective - Date & Time of Evaluation Date of Evaluation: 01/25/17 Time of Evaluation: 17:54 - Subjective Subjective: Pt seen and examined No events overnight Objective - Vital Signs/Intake and Output Vital Signs (last 24 hours): Temp Pulse Resp BP Pulse Ox 97.3 F L 68 20 146/88 97 01/25/17 15:37 01/25/17 15:37 01/25/17 15:37 01/25/17 15:37 01/25/17 15:37 Intake and Output: 01/25/17 01/25/17 06:59 18:59 Intake Total 200 770 Output Total 300 Balance 200 470 - Medications Medications: Current Medications Amiodarone HCl (Cordarone) 200 mg PO DAILY [facility] Last Admin: 01/25/17 09:42 Dose: 200 mg Amlodipine Besylate (Norvasc) 5 mg PO DAILY [facility] Last Admin: 01/25/17 09:51 Dose: 5 mg Dipyridamole/Aspirin (Aggrenox 25-200 Mg) 1 ea PO Q12 [facility] Last Admin: 01/25/17 09:42 Dose: 1 ea Donepezil HCl (Aricept) 10 mg PO DAILY [facility] Last Admin: 01/25/17 09:42 Dose: 10 mg Duloxetine HCl (Cymbalta) 30 mg PO HS [facility] Last Admin: 01/24/17 21:05 Dose: 30 mg Enoxaparin Sodium (Lovenox) 40 mg SC DAILY [facility] Last Admin: 01/25/17 09:42 Dose: 40 mg Finasteride (Proscar) 5 mg PO DAILY [facility] Last Admin: 01/25/17 09:42 Dose: 5 mg Piperacillin Sod/Tazobactam Sod (Zosyn 3.375 Gm Iv Premix) 3.375 gm in 50 mls @ 100 mls/hr IVPB Q6H [facility] Last Admin: 01/25/17 12:33 Dose: 100 mls/hr Insulin Aspart (Novolog) 0 unit SC ACHS [facility] PRN Reason: Protocol Last Admin: 01/25/17 12:33 Dose: 2 unit Levothyroxine Sodium (Synthroid) 200 mcg PO DAILY@0630 [facility] Last Admin: 01/25/17 05:30 Dose: 200 mcg Lisinopril (Zestril) 10 mg PO DAILY [facility] Last Admin: 01/25/17 09:42 Dose: 10 mg Losartan Potassium (Cozaar) 50 mg PO DAILY [facility] Last Admin: 01/25/17 09:42 Dose: 50 mg Multivitamins (Hexavitamin) 1 tab PO DAILY [facility] Last Admin: 01/25/17 09:42 Dose: 1 tab Promethazine HCl (Phenergan Syrup) 12.5 mg PO Q6 PRN PRN Reason: Cough Last Admin: 01/24/17 12:16 Dose: 12.5 mg Rosuvastatin Calcium (Crestor) 20 mg PO HS [facility] Last Admin: 01/24/17 21:05 Dose: 20 mg Tramadol HCl (Ultram) 50 mg PO Q8 PRN PRN Reason: Pain, moderate (4-7) - Labs Labs: 01/22/17 08:02 01/22/17 08:02 PT 12.4 SECONDS (9.7-12.2) H 01/19/17 22:24 INR 1.1 01/19/17 22:24 APTT 36 SECONDS (21-34) H 01/19/17 22:24 - Head Exam Head Exam: NORMAL INSPECTION - ENT Exam ENT Exam: Mucous Membranes Moist - Respiratory Exam Respiratory Exam: Clear to Ausculation Bilateral - Cardiovascular Exam Cardiovascular Exam: REGULAR RHYTHM, +S1, +S2 - GI/Abdominal Exam GI & Abdominal Exam: Soft, Normal Bowel Sounds - Extremities Exam Extremities Exam: Normal Inspection Assessment and Plan - Assessment and Plan (Free Text) Assessment: UTI Pneumonia AMS - now back to baseline HTN DM Hx of CVA Zosyn Losartan Accucheck Insulin sliding scale Pt needs 7 days of IV Abx CT abd results noted DVT/GI prophalaxis
[2017-01-26] MEDS: Piperacill/Tazo 3.375gm in Dex 3.375 GM/50 ML BAG IVPB SCH ×3 (05:31→18:36)
[2017-01-26] MEDS: Levothyroxine 200 MCG TAB PO SCH (05:32)
[2017-01-26] MEDS: (Novolog) Insulin Aspart, Recombinant 100 u/ml 10 ml vial SC SCH ×4 (08:05→21:56)
[2017-01-26 08:23] VITALS: O2SAT 95
[2017-01-26] MEDS: Aspirin-Dipyridamole 200-25 mg ER Cap PO SCH ×2 (09:25→21:55)
[2017-01-26] MEDS: Multiple Vitamins Tab PO SCH (09:25)
[2017-01-26] MEDS: Enoxaparin 40 mg Syringe SC SCH (09:26)
--- NOTE | 2017-01-26 09:37 | CP.PCM.PN ---
Subjective - Date & Time of Evaluation Date of Evaluation: 01/26/17 Time of Evaluation: 09:37 Objective - Vital Signs/Intake and Output Vital Signs (last 24 hours): Temp Pulse Resp BP Pulse Ox 98 F 81 20 136/78 95 01/26/17 07:00 01/26/17 09:24 01/26/17 07:00 01/26/17 09:24 01/26/17 07:00 - Medications Medications: Current Medications Amiodarone HCl (Cordarone) 200 mg PO DAILY [facility] Last Admin: 01/26/17 09:25 Dose: 200 mg Amlodipine Besylate (Norvasc) 5 mg PO DAILY [facility] Last Admin: 01/26/17 09:25 Dose: 5 mg Dipyridamole/Aspirin (Aggrenox 25-200 Mg) 1 ea PO Q12 [facility] Last Admin: 01/26/17 09:25 Dose: 1 ea Donepezil HCl (Aricept) 10 mg PO DAILY [facility] Last Admin: 01/26/17 09:25 Dose: 10 mg Duloxetine HCl (Cymbalta) 30 mg PO HS [facility] Last Admin: 01/25/17 21:07 Dose: 30 mg Enoxaparin Sodium (Lovenox) 40 mg SC DAILY [facility] Last Admin: 01/26/17 09:26 Dose: 40 mg Finasteride (Proscar) 5 mg PO DAILY [facility] Last Admin: 01/26/17 09:25 Dose: 5 mg Piperacillin Sod/Tazobactam Sod (Zosyn 3.375 Gm Iv Premix) 3.375 gm in 50 mls @ 100 mls/hr IVPB Q6H [facility] Last Admin: 01/26/17 05:31 Dose: 100 mls/hr Insulin Aspart (Novolog) 0 unit SC ACHS [facility] PRN Reason: Protocol Last Admin: 01/26/17 08:05 Dose: Not Given Levothyroxine Sodium (Synthroid) 200 mcg PO DAILY@0630 [facility] Last Admin: 01/26/17 05:32 Dose: 200 mcg Lisinopril (Zestril) 10 mg PO DAILY [facility] Last Admin: 01/26/17 09:28 Dose: 10 mg Losartan Potassium (Cozaar) 50 mg PO DAILY [facility] Last Admin: 01/26/17 09:25 Dose: 50 mg Multivitamins (Hexavitamin) 1 tab PO DAILY [facility] Last Admin: 01/26/17 09:25 Dose: 1 tab Promethazine HCl (Phenergan Syrup) 12.5 mg PO Q6 PRN PRN Reason: Cough Last Admin: 01/24/17 12:16 Dose: 12.5 mg Rosuvastatin Calcium (Crestor) 20 mg PO HS [facility] Last Admin: 01/25/17 21:07 Dose: 20 mg Tramadol HCl (Ultram) 50 mg PO Q8 PRN PRN Reason: Pain, moderate (4-7) - Labs Labs: 01/22/17 08:02 01/22/17 08:02 PT 12.4 SECONDS (9.7-12.2) H 01/19/17 22:24 INR 1.1 01/19/17 22:24 APTT 36 SECONDS (21-34) H 01/19/17 22:24
--- NOTE | 2017-01-26 18:15 | PN ---
DATE: An 81-year-old male with multiple medical history. Urologically, the patient was evaluated because of urinary tract infection, sepsis, E. coli, treated with Zosyn with good result. Recent cultures were negative. On ultrasound, calculi were noted within the left kidney. There was multiple calculi within the middle calices, the largest being like 1.4 cm. Because of the patient's poor health status, it is going to be difficult to treat these calculi with ESWL approach. Best decision will be to follow with antibiotic control and close follow up for a week for urinary tract infection. Héctor So MD
[2017-01-27] MEDS: Piperacill/Tazo 3.375gm in Dex 3.375 GM/50 ML BAG IVPB SCH ×5 (05:29→23:41)
[2017-01-27] MEDS: Levothyroxine 200 MCG TAB PO SCH (05:29)
[2017-01-27] MEDS: (Novolog) Insulin Aspart, Recombinant 100 u/ml 10 ml vial SC SCH ×4 (07:34→22:00)
[2017-01-27] MEDS: Aspirin-Dipyridamole 200-25 mg ER Cap PO SCH ×2 (09:00→21:05)
[2017-01-27] MEDS: Enoxaparin 40 mg Syringe SC SCH (09:00)
[2017-01-27] MEDS: Multiple Vitamins Tab PO SCH (09:00)
--- NOTE | 2017-01-27 13:39 | CP.PCM.PN ---
Subjective - Date & Time of Evaluation Date of Evaluation: 01/27/17 Time of Evaluation: 13:39 Objective - Vital Signs/Intake and Output Vital Signs (last 24 hours): Temp Pulse Resp BP Pulse Ox 98.1 F 63 20 142/81 95 01/27/17 00:40 01/27/17 03:06 01/27/17 00:40 01/27/17 00:40 01/27/17 00:40 Intake and Output: 01/27/17 01/27/17 06:59 18:59 Intake Total 580 Balance 580 - Medications Medications: Current Medications Amiodarone HCl (Cordarone) 200 mg PO DAILY [facility] Last Admin: 01/27/17 09:01 Dose: 200 mg Amlodipine Besylate (Norvasc) 5 mg PO DAILY [facility] Last Admin: 01/27/17 09:00 Dose: 5 mg Dipyridamole/Aspirin (Aggrenox 25-200 Mg) 1 ea PO Q12 [facility] Last Admin: 01/27/17 09:00 Dose: 1 ea Donepezil HCl (Aricept) 10 mg PO DAILY [facility] Last Admin: 01/27/17 09:01 Dose: 10 mg Duloxetine HCl (Cymbalta) 30 mg PO HS [facility] Last Admin: 01/26/17 21:55 Dose: 30 mg Finasteride (Proscar) 5 mg PO DAILY [facility] Last Admin: 01/27/17 09:00 Dose: 5 mg Piperacillin Sod/Tazobactam Sod (Zosyn 3.375 Gm Iv Premix) 3.375 gm in 50 mls @ 100 mls/hr IVPB Q6H [facility] Last Admin: 01/27/17 11:01 Dose: 100 mls/hr Insulin Aspart (Novolog) 0 unit SC ACHS [facility] PRN Reason: Protocol Last Admin: 01/27/17 12:36 Dose: 2 unit Levothyroxine Sodium (Synthroid) 200 mcg PO DAILY@0630 [facility] Last Admin: 01/27/17 05:29 Dose: 200 mcg Lisinopril (Zestril) 10 mg PO DAILY [facility] Last Admin: 01/27/17 09:00 Dose: 10 mg Losartan Potassium (Cozaar) 50 mg PO DAILY [facility] Last Admin: 01/27/17 09:01 Dose: 50 mg Multivitamins (Hexavitamin) 1 tab PO DAILY [facility] Last Admin: 01/27/17 09:00 Dose: 1 tab Promethazine HCl (Phenergan Syrup) 12.5 mg PO Q6 PRN PRN Reason: Cough Last Admin: 01/24/17 12:16 Dose: 12.5 mg Rosuvastatin Calcium (Crestor) 20 mg PO HS [facility] Last Admin: 01/26/17 21:55 Dose: 20 mg Tramadol HCl (Ultram) 50 mg PO Q8 PRN PRN Reason: Pain, moderate (4-7) - Labs Labs: 01/22/17 08:02 01/22/17 08:02 PT 12.4 SECONDS (9.7-12.2) H 01/19/17 22:24 INR 1.1 01/19/17 22:24 APTT 36 SECONDS (21-34) H 01/19/17 22:24
--- NOTE | 2017-01-27 16:07 | CP.PCM.PN ---
Subjective - Date & Time of Evaluation Date of Evaluation: 01/27/17 Time of Evaluation: 10:00 - Subjective Subjective: improving Objective - Vital Signs/Intake and Output Vital Signs (last 24 hours): Temp Pulse Resp BP Pulse Ox 98.1 F 60 20 162/83 H 95 01/27/17 15:41 01/27/17 15:41 01/27/17 15:41 01/27/17 15:41 01/27/17 15:41 Intake and Output: 01/27/17 01/27/17 06:59 18:59 Intake Total 580 50 Balance 580 50 - Medications Medications: Current Medications Amiodarone HCl (Cordarone) 200 mg PO DAILY [facility] Last Admin: 01/27/17 09:01 Dose: 200 mg Amlodipine Besylate (Norvasc) 5 mg PO DAILY [facility] Last Admin: 01/27/17 09:00 Dose: 5 mg Dipyridamole/Aspirin (Aggrenox 25-200 Mg) 1 ea PO Q12 [facility] Last Admin: 01/27/17 09:00 Dose: 1 ea Donepezil HCl (Aricept) 10 mg PO DAILY [facility] Last Admin: 01/27/17 09:01 Dose: 10 mg Duloxetine HCl (Cymbalta) 30 mg PO HS [facility] Last Admin: 01/26/17 21:55 Dose: 30 mg Finasteride (Proscar) 5 mg PO DAILY [facility] Last Admin: 01/27/17 09:00 Dose: 5 mg Piperacillin Sod/Tazobactam Sod (Zosyn 3.375 Gm Iv Premix) 3.375 gm in 50 mls @ 100 mls/hr IVPB Q6H [facility] Last Admin: 01/27/17 11:01 Dose: 100 mls/hr Insulin Aspart (Novolog) 0 unit SC ACHS [facility] PRN Reason: Protocol Last Admin: 01/27/17 12:36 Dose: 2 unit Levothyroxine Sodium (Synthroid) 200 mcg PO DAILY@0630 [facility] Last Admin: 01/27/17 05:29 Dose: 200 mcg Lisinopril (Zestril) 10 mg PO DAILY [facility] Last Admin: 01/27/17 09:00 Dose: 10 mg Losartan Potassium (Cozaar) 50 mg PO DAILY [facility] Last Admin: 01/27/17 09:01 Dose: 50 mg Multivitamins (Hexavitamin) 1 tab PO DAILY [facility] Last Admin: 01/27/17 09:00 Dose: 1 tab Promethazine HCl (Phenergan Syrup) 12.5 mg PO Q6 PRN PRN Reason: Cough Last Admin: 01/24/17 12:16 Dose: 12.5 mg Rosuvastatin Calcium (Crestor) 20 mg PO HS [facility] Last Admin: 01/26/17 21:55 Dose: 20 mg Tramadol HCl (Ultram) 50 mg PO Q8 PRN PRN Reason: Pain, moderate (4-7) - Labs Labs: 01/22/17 08:02 01/22/17 08:02 PT 12.4 SECONDS (9.7-12.2) H 01/19/17 22:24 INR 1.1 01/19/17 22:24 APTT 36 SECONDS (21-34) H 01/19/17 22:24 - Constitutional Appears: Non-toxic, Chronically Ill - Head Exam Head Exam: NORMOCEPHALIC - Eye Exam Eye Exam: PERRL - ENT Exam ENT Exam: Mucous Membranes Dry - Neck Exam Neck Exam: absent: Lymphadenopathy - Respiratory Exam Respiratory Exam: Decreased Breath Sounds - Cardiovascular Exam Cardiovascular Exam: REGULAR RHYTHM - GI/Abdominal Exam GI & Abdominal Exam: Distended, Soft Assessment and Plan (1) Pneumonia Status: Acute (2) UTI (urinary tract infection) Status: Acute - Assessment and Plan (Free Text) Plan: cont iv then po rx
[2017-01-28] MEDS: Piperacill/Tazo 3.375gm in Dex 3.375 GM/50 ML BAG IVPB SCH ×2 (05:32→12:45)
[2017-01-28] MEDS: Levothyroxine 200 MCG TAB PO SCH (05:32)
[2017-01-28] MEDS: (Novolog) Insulin Aspart, Recombinant 100 u/ml 10 ml vial SC SCH ×2 (08:09→12:45)
[2017-01-28 09:09] VITALS: BP 153/98; TEMP 97.4
[2017-01-28] MEDS: Aspirin-Dipyridamole 200-25 mg ER Cap PO SCH (11:00)
[2017-01-28] MEDS: Multiple Vitamins Tab PO SCH (11:00)
[2017-01-28] MEDS ORDERED: Home Med 1 UNIT (Tramadol/Acetaminophen [Ultracet 37.5/325 Mg] 1 TAB) PO PRN (16:31)
--- NOTE | 2017-01-28 16:38 | CP.PCM.DIS ---
Provider - Provider Date of Admission: 01/19/17 22:58 Attending physician: Veronica Carter MD Time Spent in preparation of Discharge (in minutes): 25 Hospital Course - Lab Results Lab Results: Micro Results 01/21/17 14:45 Blood-Venous Blood Culture - Final NO GROWTH AFTER 5 DAYS 01/21/17 14:45 Blood-Venous Gram Stain - Final TEST NOT PERFORMED 01/21/17 13:49 Blood-Venous Blood Culture - Final NO GROWTH AFTER 5 DAYS 01/21/17 13:49 Blood-Venous Gram Stain - Final TEST NOT PERFORMED 01/22/17 20:49 Urine,Clean Catch Urine Culture - Final No Growth (<1,000 CFU/ML) 01/19/17 06:00 Urine,Catheterized Urine Culture - Final Escherichia Coli 01/19/17 23:00 Blood Blood Culture - Final Escherichia Coli 01/19/17 23:00 Blood Gram Stain - Final 01/19/17 20:00 Blood Blood Culture - Final Escherichia Coli 01/19/17 20:00 Blood Gram Stain - Final Most Recent Lab Values WBC 9.9 K/uL (4.8-10.8) 01/22/17 08:02 RBC 4.48 Mil/uL (4.40-5.90) 01/22/17 08:02 Hgb 14.2 g/dL (12.0-18.0) 01/22/17 08:02 Hct 43.1 % (35.0-51.0) 01/22/17 08:02 MCV 96.2 fL (80.0-94.0) H 01/22/17 08:02 MCH 31.8 pg (27.0-31.0) H 01/22/17 08:02 MCHC 33.0 g/dL (33.0-37.0) 01/22/17 08:02 RDW 14.6 % (11.5-14.5) H 01/22/17 08:02 Plt Count 176 K/uL (130-400) 01/22/17 08:02 MPV 9.6 fL (7.2-11.7) 01/22/17 08:02 Neut % (Auto) 74.7 % (50.0-75.0) 01/22/17 08:02 Lymph % (Auto) 12.0 % (20.0-40.0) L 01/22/17 08:02 [place] % (Auto) 11.2 % (0.0-10.0) H 01/22/17 08:02 Eos % (Auto) 1.2 % (0.0-4.0) 01/22/17 08:02 Baso % (Auto) 0.9 % (0.0-2.0) 01/22/17 08:02 Neut # 7.4 K/uL (1.8-7.0) H 01/22/17 08:02 Lymph # 1.2 K/uL (1.0-4.3) 01/22/17 08:02 [place] # 1.1 K/uL (0.0-0.8) H 01/22/17 08:02 Eos # 0.1 K/uL (0.0-0.7) 01/22/17 08:02 Baso # 0.1 K/uL (0.0-0.2) 01/22/17 08:02 Neutrophils % (Manual) 79 % (50-75) H 01/21/17 08:17 Band Neutrophils % 1 % (0-2) 01/21/17 08:17 Lymphocytes % (Manual) 8 % (20-40) L 01/21/17 08:17 Monocytes % (Manual) 11 % (0-10) H 01/21/17 08:17 Basophils % (Manual) 1 % (0-2) 01/21/17 08:17 Platelet Estimate Normal (NORMAL) 01/21/17 08:17 Large Platelets Present 01/21/17 08:17 Anisocytosis (manual) Slight 01/21/17 08:17 PT 12.4 SECONDS (9.7-12.2) H 01/19/17 22:24 INR 1.1 01/19/17 22:24 APTT 36 SECONDS (21-34) H 01/19/17 22:24 pO2 61 mm/Hg (30-55) H 01/20/17 01:00 VBG pH 7.41 (7.32-7.43) 01/20/17 01:00 VBG pCO2 28 mmHg (40-60) L 01/20/17 01:00 VBG HCO3 20.5 mmol/L 01/20/17 01:00 VBG Total CO2 18.6 mmol/L (22-28) L 01/20/17 01:00 VBG O2 Sat (Calc) 94.0 % (40-65) H 01/20/17 01:00 VBG Base Excess -5.5 mmol/L (0.0-2.0) L 01/20/17 01:00 VBG Potassium 2.2 mmol/L (3.6-5.2) L* 01/20/17 01:00 Sodium 142.0 mmol/l (132-148) 01/20/17 01:00 Chloride 115.0 mmol/L (98-107) H 01/20/17 01:00 Glucose 214 mg/dl (75-110) H 01/20/17 01:00 Lactate 1.4 mmol/L (0.7-2.1) 01/20/17 01:00 Crit Value Called To Constantin lloyd/rn 6t 01/20/17 01:00 Crit Value Called By Eddy sainz/rt 01/20/17 01:00 Crit Value Read Back Y 01/20/17 01:00 Blood Gas Notified Time 110 01/20/17 01:00 Sodium 140 mmol/L (132-148) 01/22/17 08:02 Potassium 3.3 mmol/L (3.6-5.2) L 01/22/17 08:02 Chloride 103 mmol/L (98-107) 01/22/17 08:02 Carbon Dioxide 26 mmol/L (22-30) 01/22/17 08:02 Anion Gap 14 (10-20) 01/22/17 08:02 BUN 13 mg/dL (9-20) 01/22/17 08:02 Creatinine 0.8 MG/DL (0.8-1.5) 01/22/17 08:02 Est GFR ( Amer) > 60 01/22/17 08:02 Est GFR (Non-Af Amer) > 60 01/22/17 08:02 POC Glucose (mg/dL) 170 mg/dL (65-110) H 01/28/17 12:27 Random Glucose 126 mg/dL (75-110) H 01/22/17 08:02 Calcium 8.5 mg/dl (8.6-10.4) L 01/22/17 08:02 Total Bilirubin 0.5 mg/dL (0.2-1.3) 01/21/17 08:17 AST 48 U/L (17-59) 01/21/17 08:17 ALT 52 U/L (21-72) 01/21/17 08:17 Alkaline Phosphatase 165 U/L (38-126) H D 01/21/17 08:17 NT-Pro-B Natriuret Pep 439 pg/mL (0-900) 01/19/17 22:43 Total Protein 5.5 g/dL (6.3-8.3) L 01/21/17 08:17 Albumin 2.5 g/dL (3.5-5.0) L D 01/21/17 08:17 Globulin 3.0 gm/dL (2.2-3.9) 01/21/17 08:17 Albumin/Globulin Ratio 0.8 (1.0-2.1) L 01/21/17 08:17 Prostate Specific Ag 0.336 ng/mL (0.00-4.0) 01/21/17 13:51 TSH 3rd Generation 0.76 mIU/L (0.46-4.68) 01/21/17 13:51 Venous Blood Potassium 2.2 mmol/L (3.6-5.2) L* 01/20/17 01:00 Urine Color Yellow (YELLOW) 01/20/17 23:07 Urine Clarity Hazy (Clear) 01/20/17 23:07 Urine pH 5.0 (5.0-8.0) 01/20/17 23:07 Ur Specific [place] 1.025 (1.003-1.030) 01/20/17 23:07 Urine Protein 1+ mg/dL (NEGATIVE) H 01/20/17 23:07 Urine Glucose (UA) 1+ mg/dL (Normal) H 01/20/17 23:07 Urine Ketones Negative mg/dL (NEGATIVE) 01/20/17 23:07 Urine Blood 2+ (NEGATIVE) H 01/20/17 23:07 Urine Nitrate Negative (NEGATIVE) 01/20/17 23:07 Urine Bilirubin Negative (NEGATIVE) 01/20/17 23:07 Urine Urobilinogen Normal mg/dL (0.2-1.0) 01/20/17 23:07 Ur Leukocyte Esterase 3+ Derek/uL (Negative) H 01/20/17 23:07 Urine WBC (Auto) 186 /hpf (0-5) H 01/20/17 23:07 Urine RBC (Auto) 19 /hpf (0-3) H 01/20/17 23:07 Urine WBC Clumps (Auto) Many /hpf (NONE) H 01/19/17 22:24 Ur Squamous Epith Cells 1 /hpf (0-5) 01/20/17 23:07 Urine Bacteria Few (<OCC) H 01/20/17 23:07 Serum Ketones Negative (NEGATIVE) 01/19/17 22:43 Discharge Exam - Head Exam Head Exam: NORMOCEPHALIC Discharge Plan - Follow Up Plan Condition: GUARDED Disposition: HOME/ ROUTINE
[2017-01-29 08:36] VITALS: PULSE 73
[2017-02-04] MEDS ORDERED: Ergocalciferol 50,000 Intl Units Cap PO SCH (10:00)
== END 2017-01-28 18:00 | disposition home or self-care (01) | DRG 871 ==
LOC: C.ER 21:51 → C.9E 22:58 → C.6T 23:31
PROVIDERS: ADMIT Internal Medicine Critical Care Medicine; ATTEND Internal Medicine Critical Care Medicine
DX: A41.51 Sepsis due to Escherichia coli [E. coli] (principal); J18.9 Pneumonia, unspecified organism; N39.0 Urinary tract infection, site not specified; B96.20 Unspecified Escherichia coli [E. coli] as the cause of diseases classified elsewhere; I10 Essential (primary) hypertension; R09.02 Hypoxemia; E78.5 Hyperlipidemia, unspecified; E89.0 Postprocedural hypothyroidism; F03.90 Unspecified dementia, unspecified severity, without behavioral disturbance, psychotic disturbance, mood disturbance, and anxiety; Z86.73 Personal history of transient ischemic attack (TIA), and cerebral infarction without residual deficits

== ENCOUNTER 2017-04-14 22:31 | Emergency (ER) | payer MEDICARE, MEDICAID ==
[2017-04-14 22:31] VITALS: BMI 25.0
--- NOTE | 2017-04-14 22:48 | C.PDOC ---
History Of Present Illness pt was in bed and fell while daughter went to get his insulin. No loc., no change from baseline mentation. Small abrasion left cheek. No nausea or vomiting - HPI Time Seen by Provider: 04/14/17 22:47 Chief Complaint (Nursing): Trauma History Per: Patient, Family History/Exam Limitations: no limitations Onset/Duration Of Symptoms: Hrs (1) Location Of Injury: Left: Face Severity: Mild Pain Scale Rating Of: 3 Recent travel outside of the [place]: No Additional History Per: Family Past Medical History Reviewed: Historical Data, Nursing Documentation, Vital Signs Vital Signs: Last Vital Signs Temp 97.5 F L 04/14/17 22:41 Pulse 82 04/14/17 22:41 Resp 14 04/14/17 22:41 BP 176/103 H 04/14/17 22:41 Pulse Ox 93 L 04/15/17 00:40 - Medical History PMH: Atrial Fibrillation, Dementia, HTN, Hypercholesterolemia, Hyperlipidemia, Hypothyroidism Denies: Chronic Kidney Disease Family History: States: No Known Family Hx - Social History Hx Alcohol Use: No Hx Substance Use: No - Immunization History Hx Tetanus Toxoid Vaccination: No Hx Influenza Vaccination: No Hx Pneumococcal Vaccination: Yes Review Of Systems Constitutional: Negative for: Fever, Chills Eyes: Negative for: Vision Change Cardiovascular: Negative for: Chest Pain Respiratory: Negative for: Shortness of Breath Gastrointestinal: Negative for: Nausea, Vomiting Skin: Positive for: Lesions (abrasion left cheek) Neurological: Positive for: Weakness (chronic s/p stroke) Psych: Negative for: Anxiety Physical Exam - Physical Exam Appears: Non-toxic, No Acute Distress Skin: Warm, Dry Head: Tenderness (left cheek), Swelling, Abrasion Eye(s): bilateral: Normal Inspection Oral Mucosa: Moist Neck: Supple Chest: Symmetrical Cardiovascular: Rhythm Regular Respiratory: No Rales, No Rhonchi, No Wheezing Gastrointestinal/Abdominal: Soft, No Tenderness, No Distention Back: No CVA Tenderness Extremity: No Tenderness Extremity: Bilateral: Atraumatic Pulses: Left Dorsalis Pedis: Normal, Right Dorsalis Pedis: Normal Neurological/Psych: Oriented x3 Gait: Unsteady ED Course And Treatment O2 Sat by Pulse Oximetry: 93 Pulse Ox Interpretation: Normal - CT Scan/US CT Maxillofacial Other Rad Studies (CT/US): Read By Radiologist, Radiology Report Reviewed CT/US Interpretation: EXAM: CT Maxillofacial Without Intravenous Contrast. EXAM DATE/TIME: 04/14/2017 10:53 PM. CLINICAL HISTORY: 81 years old, male; Pain; Eye pain and face pain; Bilateral; Additional info: Fall. TECHNIQUE: Axial computed tomography images of the face without intravenous contrast. All CT scans at this. facility use one or more dose reduction techniques, viz.: automated exposure control; ma/kV. adjustment per patient size (including targeted exams where dose is matched to indication; i.e. head);. or iterative reconstruction technique. Coronal and sagittal reformatted images were created and reviewed. COMPARISON: CT - HEAD W/O CONTRAST 2015-11-02 08:18. FINDINGS: Bones/joints: There are no facial bone fractures. Bony structures are osteopenic. Soft tissues: There is left frontal soft tissue swelling. Vasculature: There are vascular calcifications. Lymph nodes: There is no pathologic adenopathy. Orbits: Globes are intact. Retrobulbar structures are symmetric. Salivary glands: Parotid and submandibular glands are unremarkable. Sinuses: There is no acute sinusitis. Dental: Streak artifact from dental appliances degrades image quality. Brain: There are atrophic changes in the visualized brain. Airway: Airway is unremarkable. IMPRESSION: No acute facial bone fractures; intact globes CT Head Other Rad Studies (CT/US): Read By Radiologist, Radiology Report Reviewed CT/US Interpretation: EXAM: CT Head Without Intravenous Contrast. EXAM DATE/ TIME: 04/14/2017 10:53 PM. CLINICAL HISTORY: 81 years old, male; Pain; Headache; Patient HX: 7-6-16; Additional info: Fall. TECHNIQUE: Axial computed tomography images of the head/brain without intravenous contrast. All CT scans at. this facility use one or more dose reduction techniques, viz.: automated exposure control; ma/kV. adjustment per patient size (including targeted exams where dose is matched to indication; i.e. head);. or iterative reconstruction technique. Coronal and sagittal reformatted images were created and reviewed. COMPARISON: CT - HEAD W/O CONTRAST 2015-11-02 08:18. FINDINGS: Brain: There is dilatation of sulci gyri and ventricles. There is no midline shift. There is cerebellar. encephalomalacia. There is extensive decreased attenuation in periventricular white matter. There. are no focal masses. There are no focal hemorrhages. Cornejo-white differentiation is visualized. Ventricles : See above. Bones: Cranial vault is intact. Soft tissues: unremarkable. Vasculature: There are intracranial vascular calcifications. Sinuses: There is no acute sinusitis. Ears and mastoids: Middle ears and mastoids are unremarkable. Orbits: There are no acute orbital abnormalities. There are postsurgical changes. IMPRESSION: Atrophy and small vessel disease, no bleed Reevaluation Time: 00:47 Reassessment Condition: Improved Disposition Counseled Patient/Family Regarding: Studies Performed, Diagnosis, Need For Followup - Disposition Referrals: Angelic More MD [Medical Doctor] - Disposition: HOME/ ROUTINE Disposition Time: 22:48 Condition: FAIR Instructions: Facial Contusion (ED) Forms: [facility] (Persian) - Clinical Impression Clinical Impression: Fall at home, Facial contusion
--- NOTE | 2017-04-15 00:35 | CT ---
EXAM: CT Maxillofacial Without Intravenous Contrast EXAM DATE/TIME: 04/14/2017 10:53 PM CLINICAL HISTORY: 81 years old, male; Pain; Eye pain and face pain; Bilateral; Additional info: Fall TECHNIQUE: Axial computed tomography images of the face without intravenous contrast. All CT scans at this facility use one or more dose reduction techniques, viz.: automated exposure control; ma/kV adjustment per patient size (including targeted exams where dose is matched to indication; i.e. head); or iterative reconstruction technique. Coronal and sagittal reformatted images were created and reviewed. COMPARISON: CT - HEAD W/O CONTRAST 2015-11-02 08:18 FINDINGS: Bones/joints: There are no facial bone fractures. Bony structures are osteopenic. Soft tissues: There is left frontal soft tissue swelling. Vasculature: There are vascular calcifications. Lymph nodes: There is no pathologic adenopathy. Orbits: Globes are intact. Retrobulbar structures are symmetric. Salivary glands: Parotid and submandibular glands are unremarkable. Sinuses: There is no acute sinusitis. Dental: Streak artifact from dental appliances degrades image quality. Brain: There are atrophic changes in the visualized brain. Airway: Airway is unremarkable. IMPRESSION: No acute facial bone fractures; intact globes
--- NOTE | 2017-04-15 00:38 | CT ---
EXAM: CT Head Without Intravenous Contrast EXAM DATE/TIME: 04/14/2017 10:53 PM CLINICAL HISTORY: 81 years old, male; Pain; Headache; Patient HX: [id number]; Additional info: Fall TECHNIQUE: Axial computed tomography images of the head/brain without intravenous contrast. All CT scans at this facility use one or more dose reduction techniques, viz.: automated exposure control; ma/kV adjustment per patient size (including targeted exams where dose is matched to indication; i.e. head); or iterative reconstruction technique. Coronal and sagittal reformatted images were created and reviewed. COMPARISON: CT - HEAD W/O CONTRAST 2015-11-02 08:18 FINDINGS: Brain: There is dilatation of sulci gyri and ventricles. There is no midline shift. There is cerebellar encephalomalacia. There is extensive decreased attenuation in periventricular white matter. There are no focal masses. There are no focal hemorrhages. Cornejo-white differentiation is visualized. Ventricles: See above Bones: Cranial vault is intact. Soft tissues: unremarkable Vasculature: There are intracranial vascular calcifications. Sinuses: There is no acute sinusitis. Ears and mastoids: Middle ears and mastoids are unremarkable. Orbits: There are no acute orbital abnormalities. There are postsurgical changes. IMPRESSION: Atrophy and small vessel disease, no bleed
[2017-04-15] MEDS ORDERED: Bacitracin 500 Units/gm Oint Foilpak UD ONE (00:56)
[2017-04-15 01:04] VITALS: BP 148/95; PULSE 83; RESP 16; TEMP 97.7; O2SAT 94
== END 2017-04-15 01:09 | disposition home or self-care (01) ==
LOC: C.ER 22:31
DX: S00.83XA Contusion of other part of head, initial encounter (principal); W06.XXXA Fall from bed, initial encounter

== ENCOUNTER 2018-01-21 12:07 | Inpatient (IN) | payer MEDICARE, MEDICAID ==
[2018-01-21 12:07] VITALS: BMI 25.0
[2018-01-21 13:15] LABS: BASO # 0.1 K/uL (0.0-0.2); BASO % 0.2 % (0.0-2.0); EOS # 0.1 K/uL (0.0-0.7); EOS % 0.3 % (0.0-4.0); HEMOGLOBIN 11.7 g/dL (12.0-18.0); LYMPH # 0.9 K/uL (1.0-4.3); MEAN CELL VOLUME 100.7 fL (80.0-94.0); MEAN CORPUSCULAR HEMOGLOBIN 33.3 pg (27.0-31.0); MEAN CORPUSCULAR HGB CONC 33.1 g/dL (33.0-37.0); MEAN PLATELET VOLUME 9.4 fL (7.2-11.7); MONO # 1.5 K/uL (0.0-0.8); MONO % 7.1 % (0.0-10.0); NEUT # 18.9 K/uL (1.8-7.0); NEUT % 88.4 % (50.0-75.0); PLATELET COUNT 238 K/uL (130-400); RBC 3.52 Mil/uL (4.40-5.90); RED CELL DISTRIBUTION WIDTH 15.3 % (11.5-14.5); WHITE BLOOD COUNT 21.4 K/uL (4.8-10.8)
[2018-01-21 13:23] LABS: INR 1.3; PROTHROMBIN TIME 14.4 SECONDS (9.7-12.2)
[2018-01-21 13:43] LABS: ALB/GLOB RATIO 0.6 (1.0-2.1); ALBUMIN 2.5 g/dL (3.5-5.0); CALCIUM 9.1 mg/dl (8.6-10.4)
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
[2018-01-21 13:58] LABS: BANDS 2 % (0-2); LYMPHOCYTE 6 % (20-40); MONOCYTE 5 % (0-10); NEUTROPHIL 87 % (50-75); PLATELET ESTIMATE NORMAL (NORMAL); TOTAL CELLS COUNTED 100
[2018-01-21 13:59] LABS: ANISOCYTOSIS SLIGHT; HYPOCHROMIC SLIGHT; POIKILOCYTOSIS SLIGHT; TARGET CELLS SLIGHT; TOXIC GRANULATION PRESENT
[2018-01-21 14:00] LABS: ABG ALLEN TEST POS; ARTERIAL BLOOD GAS O2 SAT 96.6 % (95-98); ARTERIAL BLOOD GAS PCO2 24 mm/Hg (35-45); ARTERIAL BLOOD GAS PH 7.46 (7.35-7.45); ARTERIAL BLOOD GAS PO2 72 mm/Hg (80-100); ARTERIAL BLOOD GAS TCO2 17.8 mmol/L (22-28)
--- NOTE | 2018-01-21 14:21 | RAD ---
Date of service: 01/21/2018 PROCEDURE: CHEST RADIOGRAPH, 1 VIEW HISTORY: SOB COMPARISON: 12/28/2016 FINDINGS: LUNGS: Low lung volumes. Persistent consolidative changes right upper lobe in both lung bases. PLEURA: No pneumothorax or pleural fluid seen. CARDIOVASCULAR: Stable cardiomegaly OSSEOUS STRUCTURES: No significant abnormalities. VISUALIZED UPPER ABDOMEN: Normal. OTHER FINDINGS: None. IMPRESSION: No significant interval change compared to the prior examination(s).
[2018-01-21 14:50] LABS: TROPONIN I 0.017 ng/mL (0.00-0.120)
[2018-01-21] MEDS ORDERED: Piperacill/Tazo 3.375gm in Dex 3.375 GM/50 ML BAG IVPB STA (15:01)
[2018-01-21] MEDS ORDERED: (Novolin R) Insulin Human Regular 100 units/ml vial IV ONE (15:02)
[2018-01-21] MEDS ORDERED: Dextrose 50% SYRINGE Inj (50 ml) IV STA ×2 (15:02→21:11)
[2018-01-21] MEDS ORDERED: Sod Polystyrene Sulf 15 gm/60 ml Susp PO ONE ×2 (15:03→21:09)
[2018-01-21] MEDS ORDERED: Sod Polystyrene Sulf 15 gm/60 ml Susp ONE (15:17)
[2018-01-21] MEDS ORDERED: Dextrose 50% SYRINGE Inj (50 ml) ONE (15:19)
[2018-01-21] MEDS ORDERED: Piperacillin/Tazobact 3.375 gm 100 ML IVPB ONE (15:19)
[2018-01-21] MEDS ORDERED: (Novolin R) Insulin Human Regular 100 units/ml vial ONE (15:19)
[2018-01-21] MEDS ORDERED: Glucagon Recombinant 1 mg Inj IM PRN (19:48)
[2018-01-21] MEDS ORDERED: Dextrose 50% SYRINGE Inj (50 ml) IV PRN (19:48)
[2018-01-21] MEDS ORDERED: (Novolin R) Insulin Human Regular 100 units/ml vial IVP ONE (21:09)
[2018-01-21] MEDS: (Novolog) Insulin Aspart, Recombinant 100 u/ml 10 ml vial SC SCH ×2 (21:34→21:51)
[2018-01-21] MEDS ORDERED: Aspirin-Dipyridamole 200-25 mg ER Cap PO SCH (22:00)
[2018-01-22] MEDS: Levothyroxine 200 MCG TAB PO SCH (05:37)
[2018-01-22 07:49] LABS: BASO # 0.1 K/uL (0.0-0.2); BASO % 0.7 % (0.0-2.0); EOS # 0.1 K/uL (0.0-0.7); EOS % 0.3 % (0.0-4.0); HEMOGLOBIN 10.5 g/dL (12.0-18.0); LYMPH # 0.9 K/uL (1.0-4.3); LYMPH % 4.7 % (20.0-40.0); MEAN CELL VOLUME 99.6 fL (80.0-94.0); MEAN CORPUSCULAR HEMOGLOBIN 33.3 pg (27.0-31.0); MEAN CORPUSCULAR HGB CONC 33.5 g/dL (33.0-37.0); MEAN PLATELET VOLUME 9.3 fL (7.2-11.7); MONO # 1.8 K/uL (0.0-0.8); MONO % 8.9 % (0.0-10.0); NEUT # 17.4 K/uL (1.8-7.0); NEUT % 85.4 % (50.0-75.0); PLATELET COUNT 227 K/uL (130-400); RBC 3.14 Mil/uL (4.40-5.90); RED CELL DISTRIBUTION WIDTH 15.4 % (11.5-14.5); WHITE BLOOD COUNT 20.4 K/uL (4.8-10.8)
[2018-01-22 08:03] LABS: ALB/GLOB RATIO 0.6 (1.0-2.1); ALBUMIN 2.2 g/dL (3.5-5.0); CALCIUM 8.8 mg/dl (8.6-10.4)
--- NOTE | 2018-01-22 08:20 | CP.PCM.CON ---
History of Present Illness - History of Present Illness History of Present Illness: This is an 82 year old man with ascites known to me from the previous admission who is admitted for shortness of breath, fatigue and weakness. Patient was admitted 12/27/2017 with a one-month history of gradually increasing abdominal distention. He did not complain of abdominal pain. He was found to have ascites and a UTI caused be E coli. Paracentesis was performed and showed an insignificant WBC count and a low albumin, with a SAAG 1.8-1.9, consistent with portal hypertension. There was no evidence of iron overload or copper overload. The serologic work up, including hepatitis B/C, AMA/ASMA, ANCA, [id number], was negative. Imaging studies showed no evidence of hepatic vein thrombosis or portal vein thrombosis. Right ventricular systolic function was normal by echocardiogram. The cirrhosis was thought to be due to steatohepatitis in the absence of any history of alcohol ingestion. He was discharged on the following medication: Spironolactone [Aldactone] 50 mg PO DAILY and Furosemide [Lasix] 20 mg PO DAILY. Evaluation in the ER showed borderline BP 95/56. The liver enzymes were lower than on the previous admission: AST 45, ALT 25, ALKP 232. The kidney function changed, now BUN 68, Cr 1.6, eGFR 41, compared to BUN 36, Cr 0.8, eGFR >60 on discharge (01/06/2018). The WBC count was elevated at 21,400, but the U/A is pending. Review of Systems - Review of Systems Systems not reviewed;Unavailable: Dementia Past Patient History - Infectious Disease Hx of Infectious Diseases: None - Past Medical History & Family History Past Medical History?: Yes - Past Social History Smoking Status: Never Smoked - CARDIAC Hx Cardiac Disorders: Yes Hx Atrial Fibrillation: Yes Hx Hypercholesterolemia: Yes Hx Hypertension: Yes - PULMONARY Hx Respiratory Disorders: No - NEUROLOGICAL Hx Neurological Disorder: Yes HX Cerebrovascular Accident: Yes Hx Dementia: Yes - HEENT Hx HEENT Problems: No - RENAL Hx Chronic Kidney Disease: No - ENDOCRINE/METABOLIC Hx Endocrine Disorders: Yes Hx Diabetes Mellitus Type 2: Yes Hx Hypothyroidism: Yes - HEMATOLOGICAL/ONCOLOGICAL Hx Blood Disorders: No - INTEGUMENTARY Hx Dermatological Problems: Yes Other/Comment: pressure ulcer - MUSCULOSKELETAL/RHEUMATOLOGICAL Hx Musculoskeletal Disorders: Yes Hx Falls: Yes - GASTROINTESTINAL Hx Gastrointestinal Disorders: Yes Other/Comment: acities - GENITOURINARY/GYNECOLOGICAL Hx Genitourinary Disorders: Yes Hx Prostate Problems: Yes - PSYCHIATRIC Hx Psychophysiologic Disorder: No Hx Substance Use: No - SURGICAL HISTORY Hx Surgeries: Yes Hx Thyroidectomy: Yes Other/Comment: prostate surgery - ANESTHESIA Hx Anesthesia: Yes Hx Anesthesia Reactions: No Hx Malignant Hyperthermia: No Has any member of the family had a problem w/ anesthesia?: No Meds Allergies/Adverse Reactions: Allergies Allergy/AdvReac Type Severity Reaction Status Date / Time No Known Allergies Allergy Verified 12/27/17 20:33 - Medications Medications: Current Medications Amlodipine Besylate (Norvasc) 5 mg PO DAILY [facility] Dextrose (Dextrose 50% Inj) 0 ml IV STAT PRN; Protocol PRN Reason: Hypoglycemia Protocol Dextrose (Glutose 15) 0 gm PO ONCE PRN; Protocol PRN Reason: Hypoglycemia Protocol Dipyridamole/Aspirin (Aggrenox 25-200 Mg) 1 ea PO Q12 [facility] Last Admin: 01/21/18 21:32 Dose: 1 ea Furosemide (Lasix) 20 mg PO DAILY [facility] Glucagon (Glucagen Diagnostic Kit) 0 mg IM STAT PRN; Protocol PRN Reason: Hypoglycemia Protocol Heparin Sodium (Porcine) (Heparin) 5,000 units SC Q8 [facility] Last Admin: 01/22/18 05:36 Dose: 5,000 units Dextrose (Dextrose 5% In Water 1000 Ml) 1,000 mls @ 0 mls/hr IV .Q0M PRN; Protocol PRN Reason: Hypoglycemia Protocol Insulin Aspart (Novolog) 0 unit SC ACHS [facility]; Protocol Last Admin: 01/21/18 21:51 Dose: Not Given Levothyroxine Sodium (Synthroid) 200 mcg PO DAILY@0630 [facility] Last Admin: 01/22/18 05:37 Dose: 200 mcg Spironolactone (Aldactone) 50 mg PO DAILY [facility] Physical Exam - Constitutional Appears: Confused - Head Exam Head Exam: ATRAUMATIC, NORMOCEPHALIC - Eye Exam Eye Exam: EOMI, PERRL - Neck Exam Neck exam: Negative for: Lymphadenopathy, Thyromegaly - Respiratory Exam Respiratory Exam: NORMAL BREATHING PATTERN. absent: Rales, Rhonchi, Wheezes - Cardiovascular Exam Cardiovascular Exam: REGULAR RHYTHM, +S1, +S2. absent: Gallop, Rubs, Systolic Murmur - GI/Abdominal Exam GI & Abdominal Exam: Distended, Normal Bowel Sounds, Soft. absent: Mass, Organomegaly, Tenderness Additional comments: Positive fluid wave - Rectal Exam Rectal Exam: Deferred - Extremities Exam Extremities exam: Positive for: pedal edema Additional comments: trace pedal edema Results - Vital Signs Recent Vital Signs: Last Vital Signs Temp 98.7 F 01/22/18 07:55 Pulse 76 01/22/18 07:55 Resp 20 01/22/18 07:55 BP 110/66 01/22/18 07:55 Pulse Ox 95 01/22/18 07:55 - Labs Result Diagrams: 01/22/18 07:31 01/22/18 07:31 Labs: Laboratory Results - last 24 hr 01/21/18 01/21/18 01/21/18 12:29 12:58 12:58 WBC 21.4 H RBC 3.52 L Hgb 11.7 L Hct 35.5 MCV 100.7 H MCH 33.3 H MCHC 33.1 RDW 15.3 H Plt Count 238 MPV 9.4 Neut % (Auto) 88.4 H Lymph % (Auto) 4.0 L [place] % (Auto) 7.1 Eos % (Auto) 0.3 Baso % (Auto) 0.2 Neut # (Auto) 18.9 H Lymph # (Auto) 0.9 L [place] # (Auto) 1.5 H Eos # (Auto) 0.1 Baso # (Auto) 0.1 Neutrophils % (Manual) 87 H Band Neutrophils % 2 Lymphocytes % (Manual) 6 L Monocytes % (Manual) 5 Toxic Granulation Present Platelet Estimate Normal Hypochromasia (manual) Slight Poikilocytosis (manual Slight Anisocytosis (manual) Slight Target Cells Slight PT 14.4 H INR 1.3 APTT 38 H Puncture Site pCO2 pO2 HCO3 ABG pH ABG Total CO2 ABG O2 Saturation ABG Base Excess John Test Liter Flow Sodium Potassium Chloride Carbon Dioxide Anion Gap BUN Creatinine Est GFR ( Amer) Est GFR (Non-Af Amer) POC Glucose (mg/dL) 163 H Random Glucose Calcium Phosphorus Magnesium Total Bilirubin AST ALT Alkaline Phosphatase Troponin I NT-Pro-B Natriuret Pep Total Protein Albumin Globulin Albumin/Globulin Ratio Lipase TSH 3rd Generation 01/21/18 01/21/18 01/21/18 12:58 13:56 14:21 WBC RBC Hgb Hct MCV MCH MCHC RDW Plt Count MPV Neut % (Auto) Lymph % (Auto) [place] % (Auto) Eos % (Auto) Baso % (Auto) Neut # (Auto) Lymph # (Auto) [place] # (Auto) Eos # (Auto) Baso # (Auto) Neutrophils % (Manual) Band Neutrophils % Lymphocytes % (Manual) Monocytes % (Manual) Toxic Granulation Platelet Estimate Hypochromasia (manual) Poikilocytosis (manual Anisocytosis (manual) Target Cells PT INR APTT Puncture Site Lb pCO2 24 L pO2 72 L HCO3 21.0 ABG pH 7.46 H ABG Total CO2 17.8 L ABG O2 Saturation 96.6 ABG Base Excess -4.9 L John Test Pos Liter Flow 2.0 Sodium 144 Potassium 6.1 H Chloride 117 H Carbon Dioxide 19 L Anion Gap 15 BUN 68 H Creatinine 1.6 H Est GFR ( Amer) 50 Est GFR (Non-Af Amer) 41 POC Glucose (mg/dL) Random Glucose 150 H Calcium 9.1 Phosphorus Magnesium 2.1 Total Bilirubin 1.0 AST 48 ALT 27 Alkaline Phosphatase 263 H Troponin I 0.0170 NT-Pro-B Natriuret Pep 1770 H Total Protein 6.5 Albumin 2.5 L Globulin 3.9 Albumin/Globulin Ratio 0.6 L Lipase 147 TSH 3rd Generation 0.44 L 01/21/18 01/21/18 01/21/18 19:23 20:23 21:50 WBC RBC Hgb Hct MCV MCH MCHC RDW Plt Count MPV Neut % (Auto) Lymph % (Auto) [place] % (Auto) Eos % (Auto) Baso % (Auto) Neut # (Auto) Lymph # (Auto) [place] # (Auto) Eos # (Auto) Baso # (Auto) Neutrophils % (Manual) Band Neutrophils % Lymphocytes % (Manual) Monocytes % (Manual) Toxic Granulation Platelet Estimate Hypochromasia (manual) Poikilocytosis (manual Anisocytosis (manual) Target Cells PT INR APTT Puncture Site pCO2 pO2 HCO3 ABG pH ABG Total CO2 ABG O2 Saturation ABG Base Excess John Test Liter Flow Sodium 145 Potassium 6.0 H Chloride 116 H Carbon Dioxide 19 L Anion Gap 16 BUN 70 H Creatinine 1.7 H Est GFR ( Amer) 47 Est GFR (Non-Af Amer) 39 POC Glucose (mg/dL) 140 H 261 H Random Glucose 136 H Calcium 9.0 Phosphorus Magnesium Total Bilirubin AST ALT Alkaline Phosphatase Troponin I NT-Pro-B Natriuret Pep Total Protein Albumin Globulin Albumin/Globulin Ratio Lipase TSH 3rd Generation 01/22/18 01/22/18 07:31 07:31 WBC 20.4 H RBC 3.14 L Hgb 10.5 L Hct 31.3 L MCV 99.6 H MCH 33.3 H MCHC 33.5 RDW 15.4 H Plt Count 227 MPV 9.3 Neut % (Auto) 85.4 H Lymph % (Auto) 4.7 L [place] % (Auto) 8.9 Eos % (Auto) 0.3 Baso % (Auto) 0.7 Neut # (Auto) 17.4 H Lymph # (Auto) 0.9 L [place] # (Auto) 1.8 H Eos # (Auto) 0.1 Baso # (Auto) 0.1 Neutrophils % (Manual) Band Neutrophils % Lymphocytes % (Manual) Monocytes % (Manual) Toxic Granulation Platelet Estimate Hypochromasia (manual) Poikilocytosis (manual Anisocytosis (manual) Target Cells PT INR APTT Puncture Site pCO2 pO2 HCO3 ABG pH ABG Total CO2 ABG O2 Saturation ABG Base Excess John Test Liter Flow Sodium 146 Potassium 5.7 H Chloride 119 H Carbon Dioxide 17 L Anion Gap 15 BUN 73 H Creatinine 1.9 H Est GFR ( Amer) 41 Est GFR (Non-Af Amer) 34 POC Glucose (mg/dL) Random Glucose 142 H Calcium 8.8 Phosphorus 3.8 Magnesium 2.5 H Total Bilirubin 1.1 AST 45 ALT 25 Alkaline Phosphatase 232 H Troponin I NT-Pro-B Natriuret Pep Total Protein 5.8 L Albumin 2.2 L Globulin 3.6 Albumin/Globulin Ratio 0.6 L Lipase TSH 3rd Generation Assessment & Plan (1) Cirrhosis Assessment and Plan: Patient was admitted with weakness, SOB, found to have acute kidney injury p robably due to diuretics and volume depletion. He also has a leukocytosis, and UTI and SBP will be ruled out. Patient seems intolerant of even low doses of diuretics, and the ascites should be managed with periodic paracentesis. Status: Acute
[2018-01-22] MEDS ORDERED: Albumin Human 25% (12.5 gm/50 ml) IV ONE (08:43)
[2018-01-22] MEDS: (Novolog) Insulin Aspart, Recombinant 100 u/ml 10 ml vial SC SCH ×4 (08:46→21:15)
[2018-01-22 08:59] LABS: BANDS 2 % (0-2); LYMPHOCYTE 4 % (20-40); MONOCYTE 4 % (0-10); NEUTROPHIL 90 % (50-75); TOTAL CELLS COUNTED 100
[2018-01-22 09:00] LABS: ANISOCYTOSIS SLIGHT; PLATELET ESTIMATE NORMAL (NORMAL)
--- NOTE | 2018-01-22 10:06 | PCM.SURG1 ---
Surgeon's Initial Post Op Note - Surgeon's Notes Surgeon: David Bettencourt MD Manager Of Corporate: NONE Type of Anesthesia: Local Pre-Operative Diagnosis: Ascites Operative Findings: US showed small amount of ascites Post-Operative Diagnosis: Ascites Operation Performed: US guided paracentesis Specimen/Specimens Removed: 2 liters of yellow fluid Estimated Blood Loss: EBL {In ML}: 0 Blood Products Given: N/A Drains Used: No Drains Post-Op Condition: Fair Date of Surgery/Procedure: 01/22/18 Time of Surgery/Procedure: 09:30
--- NOTE | 2018-01-22 11:52 | CARD ---
APPROVED REPORT Date of service: 01/21/2018 EKG Measurement Heart [id number] <Conclusion> Normal sinus rhythm Left axis deviation Moderate voltage criteria for LVH, may be normal variant Inferior infarct, age undetermined Anteroseptal infarct, age undetermined Abnormal ECG
--- NOTE | 2018-01-22 12:40 | CP.PCM.CON ---
History of Present Illness - History of Present Illness History of Present Illness: 82 yo male with Hx of recently diagnosed YANG is now admitted with low BP and possible infection with leukocytosis Patient is a poor historian and medical records were reviewed extensively He was admitted 12/27/2017 with ascites . Paracentesis was performed consistent with portal hypertension. Cultures were neg except urine + E Coli . The serologic work up was negative. Was sent home on lasix/aldactone combo after being treated with antibiotics PMH Atrial Fibrillation, Dementia, HTN, Hypercholesterolemia, Hyperlipidemia, Hypothyroidism, DM. YANG cirrhosis Review of Systems - Review of Systems Systems not reviewed;Unavailable: Altered Mental Status - Constitutional Constitutional: As Per HPI - EENT Eyes: absent: As Per HPI, Blind Spots, Blurred Vision, Change in Vision, Decreased Night Vision, Diplopia, Discharge, Dry Eye, Exophthalmos, Floaters, Irritation, Itchy Eyes, Loss of Peripheral Vision, Pain, Photophobia, Requires Corrective Lenses, Sees Flashes, Spots in Vision, Tunnel Vision, Other Visual Disturbances, Loss of Vision, Other Ears: absent: As Per HPI, Decreased Hearing, Ear Discharge, Ear Pain, Tinnitus, Abnormal Hearing, Disequilibrium, Dizziness, Other Nose/Mouth/Throat: absent: As Per HPI, Epistaxis, Nasal Congestion, Nasal Discharge, Nasal Obstruction, Nasal Trauma, Nose Pain, Post Nasal Drip, Sinus Pain, Sinus Pressure, Bleeding Gums, Change in Voice, Dental Pain, Dry Mouth, Dysphagia, Halitosis, Hoarsness, Lip Swelling, Mouth Lesions, Mouth Pain, Odynophagia, Sore Throat, Throat Swelling, Tongue Swelling, Facial Pain, Neck Pain, Neck Mass, Other - Cardiovascular Cardiovascular: absent: As Per HPI, Acrocyanosis, Chest Pain, Chest Pain at Re st, Chest Pain with Activity, Claudication, Diaphoresis, Dyspnea, Dyspnea on Exertion, Edema, Irregular Heart Rhythm, Pain Radiating to Arm/Neck/Jaw, Leg Edema, Leg Ulcers, Lightheadedness, Orthopnea, Palpitations, Paroxysmal Nocturnal Dyspnea, Pedal Edema, Radiating Pain, Rapid Heart Rate, Slow Heart Rate, Syncope, Other - Respiratory Respiratory: absent: As Per HPI, Cough, Dyspnea, Hemoptysis, Dyspnea on Exertion, Wheezing, Snoring, Stridor, Pain on Inspiration, Chest Congestion, Excessive Mucous Production, Change in Mucous Color, Pain with Coughing, Other - Gastrointestinal Gastrointestinal: As Per HPI - Genitourinary Genitourinary: As Per HPI - Musculoskeletal Musculoskeletal: As Per HPI - Integumentary Integumentary: absent: As Per HPI, Acne, Alopecia, Bleeding Lesions, Change in Hair, Change in Nails, Change in Pigmentation, Changing Lesions, Dry Skin, Erythema, Furuncle, Hirsutism, Lesions, New Lesions, Non-Healing Lesions, Photosensitivity, Pruritus, Rash, Skin Pain, Skin Ulcer, Sores, Striae, Swelling, Unusual Bruising, Wounds, Jaundice, Other - Neurological Neurological: As Per HPI - Psychiatric Psychiatric: As Per HPI - Endocrine Endocrine: absent: As Per HPI, Change in Body Appearance, Change in Libido, Cold Intolorance, Deepening of Voice, Excessive Sweating, Fatigue, Flushing, Heat Intolorance, Increase in Ring/Shoe/Hat Size, Palpitations, Polydipsia, Polyphagia, Polyuria, Other Past Patient History - Infectious Disease Hx of Infectious Diseases: None - Past Medical History & Family History Past Medical History?: Yes - Past Social History Smoking Status: Never Smoked - CARDIAC Hx Cardiac Disorders: Yes Hx Atrial Fibrillation: Yes Hx Hypercholesterolemia: Yes Hx Hypertension: Yes - PULMONARY Hx Respiratory Disorders: No - NEUROLOGICAL Hx Neurological Disorder: Yes HX Cerebrovascular Accident: Yes Hx Dementia: Yes - HEENT Hx HEENT Problems: No - RENAL Hx Chronic Kidney Disease: No - ENDOCRINE/METABOLIC Hx Endocrine Disorders: Yes Hx Diabetes Mellitus Type 2: Yes Hx Hypothyroidism: Yes - HEMATOLOGICAL/ONCOLOGICAL Hx Blood Disorders: No - INTEGUMENTARY Hx Dermatological Problems: Yes Other/Comment: pressure ulcer - MUSCULOSKELETAL/RHEUMATOLOGICAL Hx Musculoskeletal Disorders: Yes Hx Falls: Yes - GASTROINTESTINAL Hx Gastrointestinal Disorders: Yes Other/Comment: acities - GENITOURINARY/GYNECOLOGICAL Hx Genitourinary Disorders: Yes Hx Prostate Problems: Yes - PSYCHIATRIC Hx Psychophysiologic Disorder: No Hx Substance Use: No - SURGICAL HISTORY Hx Surgeries: Yes Hx Thyroidectomy: Yes Other/Comment: prostate surgery - ANESTHESIA Hx Anesthesia: Yes Hx Anesthesia Reactions: No Hx Malignant Hyperthermia: No Has any member of the family had a problem w/ anesthesia?: No Meds Allergies/Adverse Reactions: Allergies Allergy/AdvReac Type Severity Reaction Status Date / Time No Known Allergies Allergy Verified 12/27/17 20:33 - Medications Medications: Current Medications Amlodipine Besylate (Norvasc) 5 mg PO DAILY [facility] Last Admin: 01/22/18 11:58 Dose: Not Given Dextrose (Dextrose 50% Inj) 0 ml IV STAT PRN; Protocol PRN Reason: Hypoglycemia Protocol Dextrose (Glutose 15) 0 gm PO ONCE PRN; Protocol PRN Reason: Hypoglycemia Protocol Glucagon (Glucagen Diagnostic Kit) 0 mg IM STAT PRN; Protocol PRN Reason: Hypoglycemia Protocol Heparin Sodium (Porcine) (Heparin) 5,[address] [facility] Last Admin: 01/22/18 05:36 Dose: 5,000 units Dextrose (Dextrose 5% In Water 1000 Ml) 1,000 mls @ 0 mls/hr IV .Q0M PRN; Protocol PRN Reason: Hypoglycemia Protocol Insulin Aspart (Novolog) [address] [facility]; Protocol Last Admin: 01/22/18 11:57 Dose: 1 unit Levothyroxine Sodium (Synthroid) 200 mcg PO DAILY@0630 [facility] Last Admin: 01/22/18 05:37 Dose: 200 mcg Physical Exam - Constitutional Appears: No Acute Distress, Confused, Chronically Ill - Head Exam Head Exam: ATRAUMATIC, NORMAL INSPECTION, NORMOCEPHALIC - Eye Exam Eye Exam: PERRL. absent: Scleral icterus - ENT Exam ENT Exam: Mucous Membranes Dry, Normal External Ear Exam, Normal Oropharynx - Neck Exam Neck exam: Negative for: Lymphadenopathy - Respiratory Exam Respiratory Exam: Decreased Breath Sounds, Rhonchi - Cardiovascular Exam Cardiovascular Exam: Irregular Rhythm, +S1, +S2 - GI/Abdominal Exam GI & Abdominal Exam: Diminished Bowel Sounds, Distended, Soft. absent: Guarding, Rebound, Rigid, Tenderness - Rectal Exam Rectal Exam: Deferred - Exam Exam: NORMAL INSPECTION - Extremities Exam Extremities exam: Positive for: pedal pulses present. Negative for: calf tenderness, pedal edema, tenderness - Back Exam Back exam: absent: CVA tenderness (L), CVA tenderness (R), paraspinal tenderness - Neurological Exam Neurological exam: Alert, Altered, CN II-XII Intact - Psychiatric Exam Psychiatric exam: Depressed - Skin Skin Exam: Dry Results - Vital Signs Recent Vital Signs: Last Vital Signs Temp 97.7 F 01/22/18 10:00 Pulse 80 01/22/18 10:00 Resp 22 01/22/18 10:00 BP 105/61 01/22/18 10:00 Pulse Ox 97 01/22/18 10:00 - Labs Result Diagrams: 01/22/18 07:31 01/22/18 07:31 Labs: Laboratory Results - last 24 hr 01/21/18 01/21/18 01/21/18 12:58 12:58 12:58 WBC 21.4 H RBC 3.52 L Hgb 11.7 L Hct 35.5 MCV 100.7 H MCH 33.3 H MCHC 33.1 RDW 15.3 H Plt Count 238 MPV 9.4 Neut % (Auto) 88.4 H Lymph % (Auto) 4.0 L Sherman % (Auto) 7.1 Eos % (Auto) 0.3 Baso % (Auto) 0.2 Neut # (Auto) 18.9 H Lymph # (Auto) 0.9 L [place] # (Auto) 1.5 H Eos # (Auto) 0.1 Baso # (Auto) 0.1 Neutrophils % (Manual) 87 H Band Neutrophils % 2 Lymphocytes % (Manual) 6 L Monocytes % (Manual) 5 Toxic Granulation Present Platelet Estimate Normal Hypochromasia (manual) Slight Poikilocytosis (manual Slight Anisocytosis (manual) Slight Target Cells Slight PT 14.4 H INR 1.3 APTT 38 H Puncture Site pCO2 pO2 HCO3 ABG pH ABG Total CO2 ABG O2 Saturation ABG Base Excess John Test Liter Flow Sodium 144 Potassium 6.1 H Chloride 117 H Carbon Dioxide 19 L Anion Gap 15 BUN 68 H Creatinine 1.6 H Est GFR ( Amer) 50 Est GFR (Non-Af Amer) 41 POC Glucose (mg/dL) Random Glucose 150 H Calcium 9.1 Phosphorus Magnesium Total Bilirubin 1.0 AST 48 ALT 27 Alkaline Phosphatase 263 H Troponin I NT-Pro-B Natriuret Pep Total Protein 6.5 Albumin 2.5 L Globulin 3.9 Albumin/Globulin Ratio 0.6 L Lipase TSH 3rd Generation 01/21/18 01/21/18 01/21/18 13:56 14:21 19:23 WBC RBC Hgb Hct MCV MCH MCHC RDW Plt Count MPV Neut % (Auto) Lymph % (Auto) Sherman % (Auto) Eos % (Auto) Baso % (Auto) Neut # (Auto) Lymph # (Auto) [place] # (Auto) Eos # (Auto) Baso # (Auto) Neutrophils % (Manual) Band Neutrophils % Lymphocytes % (Manual) Monocytes % (Manual) Toxic Granulation Platelet Estimate Hypochromasia (manual) Poikilocytosis (manual Anisocytosis (manual) Target Cells PT INR APTT Puncture Site Lb pCO2 24 L pO2 72 L HCO3 21.0 ABG pH 7.46 H ABG Total CO2 17.8 L ABG O2 Saturation 96.6 ABG Base Excess -4.9 L John Test Pos Liter Flow 2.0 Sodium Potassium Chloride Carbon Dioxide Anion Gap BUN Creatinine Est GFR ( Amer) Est GFR (Non-Af Amer) POC Glucose (mg/dL) 140 H Random Glucose Calcium Phosphorus Magnesium 2.1 Total Bilirubin AST ALT Alkaline Phosphatase Troponin I 0.0170 NT-Pro-B Natriuret Pep 1770 H Total Protein Albumin Globulin Albumin/Globulin Ratio Lipase 147 TSH 3rd Generation 0.44 L 01/21/18 01/21/18 01/22/18 20:23 21:50 07:31 WBC 20.4 H RBC 3.14 L Hgb 10.5 L Hct 31.3 L MCV 99.6 H MCH 33.3 H MCHC 33.5 RDW 15.4 H Plt Count 227 MPV 9.3 Neut % (Auto) 85.4 H Lymph % (Auto) 4.7 L Sherman % (Auto) 8.9 Eos % (Auto) 0.3 Baso % (Auto) 0.7 Neut # (Auto) 17.4 H Lymph # (Auto) 0.9 L [place] # (Auto) 1.8 H Eos # (Auto) 0.1 Baso # (Auto) 0.1 Neutrophils % (Manual) 90 H Band Neutrophils % 2 Lymphocytes % (Manual) 4 L Monocytes % (Manual) 4 Toxic Granulation Platelet Estimate Normal Hypochromasia (manual) Poikilocytosis (manual Anisocytosis (manual) Slight Target Cells PT INR APTT Puncture Site pCO2 pO2 HCO3 ABG pH ABG Total CO2 ABG O2 Saturation ABG Base Excess John Test Liter Flow Sodium 145 Potassium 6.0 H Chloride 116 H Carbon Dioxide 19 L Anion Gap 16 BUN 70 H Creatinine 1.7 H Est GFR ( Amer) 47 Est GFR (Non-Af Amer) 39 POC Glucose (mg/dL) 261 H Random Glucose 136 H Calcium 9.0 Phosphorus Magnesium Total Bilirubin AST ALT Alkaline Phosphatase Troponin I NT-Pro-B Natriuret Pep Total Protein Albumin Globulin Albumin/Globulin Ratio Lipase TSH 3rd Generation 01/22/18 01/22/18 01/22/18 07:31 08:45 11:04 WBC RBC Hgb Hct MCV MCH MCHC RDW Plt Count MPV Neut % (Auto) Lymph % (Auto) Sherman % (Auto) Eos % (Auto) Baso % (Auto) Neut # (Auto) Lymph # (Auto) Sherman # (Auto) Eos # (Auto) Baso # (Auto) Neutrophils % (Manual) Band Neutrophils % Lymphocytes % (Manual) Monocytes % (Manual) Toxic Granulation Platelet Estimate Hypochromasia (manual) Poikilocytosis (manual Anisocytosis (manual) Target Cells PT INR APTT Puncture Site pCO2 pO2 HCO3 ABG pH ABG Total CO2 ABG O2 Saturation ABG Base Excess John Test Liter Flow Sodium 146 Potassium 5.7 H Chloride 119 H Carbon Dioxide 17 L Anion Gap 15 BUN 73 H Creatinine 1.9 H Est GFR ( Amer) 41 Est GFR (Non-Af Amer) 34 POC Glucose (mg/dL) 143 H 176 H Random Glucose 142 H Calcium 8.8 Phosphorus 3.8 Magnesium 2.5 H Total Bilirubin 1.1 AST 45 ALT 25 Alkaline Phosphatase 232 H Troponin I NT-Pro-B Natriuret Pep Total Protein 5.8 L Albumin 2.2 L Globulin 3.6 Albumin/Globulin Ratio 0.6 L Lipase TSH 3rd Generation Assessment & Plan (1) Cirrhosis Status: Acute (2) Hyperkalemia Status: Acute (3) Leukocytosis Status: Acute (4) SOB (shortness of breath) Status: Acute (5) Ascites Status: Acute - Assessment and Plan (Free Text) Assessment: leukocytosis and low BP - r/o bacteremia r/o SBP vs recurrent UTI OBS HTN DMII A Fib await Paracentesis/ cultures start IV antibiotics
[2018-01-22 12:48] LABS: SQUAMOUS EPITHIAL 3 /hpf (0-5); URINE BACTERIA OCC (<OCC); URINE BILIRUBIN NEGATIVE (NEGATIVE); URINE BLOOD 2+ (NEGATIVE); URINE CLARITY Hazy (Clear); URINE COLOR Amber (YELLOW); URINE GLUCOSE (UA) NORMAL (Normal); URINE LEUKOCYTE ESTERASE 3+ Leu/uL (Negative); URINE PROTEIN NEGATIVE (NEGATIVE); URINE UROBILINOGEN NORMAL mg/dL (0.2-1.0)
[2018-01-22 12:53] LABS: BODY FLUID TYPE PERITONEAL
--- NOTE | 2018-01-22 12:58 | US ---
Date of Procedure: 01/22/2018 PROCEDURE: Ultrasound-guided paracentesis, CPT 30558 Medications: 7 cc 1% Lidocaine HISTORY: Ascites TECHNIQUE: Following informed consent , the patient was placed supine on the stretcher and the site was marked. A limited abdominal ultrasound was performed that showed a small amount of intra-abdominal fluid. Procedural time out was called and the Pt's abdomen was marked and prepped and draped in the usual sterile fashion. Ultrasound-guided large volume paracentesis performed. A total of 2 liters of straw colored fluid was removed without complication. Fluid specimen was sent for culture, sensitivity, cytology and chemistries. IMPRESSION: Ultrasound-guided paracentesis.
[2018-01-22 13:38] LABS: BF GROSS APPEARANCE SL CLOUDY (CLEAR); BODY FLUID MONO/MACROPHAGE 10 % (0-0); BODY FLUID TOTAL COUNT 100 (0-0)
[2018-01-22] MEDS ORDERED: Piperacill/Tazo 3.375gm in Dex 3.375 GM/50 ML BAG IVPB SCH (14:00)
[2018-01-22] MEDS ORDERED: Sod Polystyrene Sulf 15 gm/60 ml Susp PO ONE ×2 (14:54→17:00)
[2018-01-22] MEDS ORDERED: Albumin Human 25% (12.5 gm/50 ml) IV SCH (15:00)
--- NOTE | 2018-01-22 16:32 | CP.PCM.CON ---
History of Present Illness - History of Present Illness History of Present Illness: Nephrology Consultation Note Assessment: critical Acute Kidney Injury (N17.9) likely due to pre-renal with hyperkalemia likely contributed by triple RAAS blockers NAGMA anemia with sepsis ? SBP cirrhosis with ascites Atrial Fibrillation, Dementia, HTN, Hypercholesterolemia, Hyperlipidemia, Hypothyroidism, DM Plan No acute need for renal replacement therapy at this time. Maintain hemodynamics stable. Avoid hypotension. hold ACEI/ARB/aldactone due to recent GILDARDO. avoid acei +arb combination in future hold norvasc for now Monitor Input/Output, daily weights and renal function with basic metabolic panel started IV albumin started 0.45% saline started sodium bicarb pike catheterization due to his AMS Dose meds/antibiotics for reduced GFR. Avoid fleets enema/magnesium based laxatives. Avoid nephrotoxins/NSAIDs/ iodinated contrast (unless needed emergently) Glycemic control Further work up for as per primary team Thanks for allowing me to participate in care of your patient. Will follow patient with you. Please call if any Qs. had d/w team and son bedside Dr Adriano Del Rosario Office: [phone] CC: unable to obtain reason for consult: GILDARDO HPI: Pit is a 82 y/o M with hx of Atrial Fibrillation, Dementia, HTN, Hypercholesterolemia, Hyperlipidemia, Hypothyroidism, DM who recently was diagnosed and admitted to hospital with UTI with cirrhosis with ascites with neg work up as ? due to steatohepatitis was brought by family as he was very lethargic yesterday. pt is admitted with sepsis ? SBP and GILDARDO with hyperkalemia. pt was on lasix with aldacone, ramipril and losartan. son bedside and provided hx initially. ROS: Noted events overnight. Patients unable to provide hx per son, pt not responding. ill since yesterday am Physical Examination: General Appearance: in no acute respiratory distress, ill appearing, not responsive to commands Vitals reviewed and noted as below Head; Atraumatic, normocephalic ENT: no ulcers no thrush. Tongue is midline/very dry. Oropharynx: no rash or ulcers. EYES: Pupils are equal, round, constricted and reactive to light accommodation. Eye muscles and extraocular movement intact. Sclera is anicteric. Neck; supple no lymphadenopathy, no thyromegaly or bruit Lungs: Normal respiratory rate/effort. Breath sounds bilateral clear anteriorly with few basal crackle Heart: Normal rate. s1s2 normal. No rub or gallop. Extremities: 1+ edema. No varicose veins Neurological: Patient is not oriented to person, place and time and comatose Skin: Warm and dry. Normal turgor. No rash. Palpitation: Normal elasticity for age. Abdomen: Abdomen is soft. Bowel sounds +. There is no abdominal tenderness, no guarding/rigidity no organomegaly, ascitic Psych: unable MSK: no joint tenderness or swelling. Digits and nails normal, no deformity : kidney or bladder not palpable however limited exam Labs/imaging reviewed. Past medical history, past surgical history, family history, social history, allergy reviewed and noted as below Family hx: no hx of CKD. Rest non-contributory work up: UA 2+ blood , urine Na <5 renal imaging left renal cyst and small stone normal LVEF on echo Past Patient History - Infectious Disease Hx of Infectious Diseases: None - Past Medical History & Family History Past Medical History?: Yes - Past Social History Smoking Status: Never Smoked - CARDIAC Hx Cardiac Disorders: Yes Hx Atrial Fibrillation: Yes Hx Hypercholesterolemia: Yes Hx Hypertension: Yes - PULMONARY Hx Respiratory Disorders: No - NEUROLOGICAL Hx Neurological Disorder: Yes HX Cerebrovascular Accident: Yes Hx Dementia: Yes - HEENT Hx HEENT Problems: No - RENAL Hx Chronic Kidney Disease: No - ENDOCRINE/METABOLIC Hx Endocrine Disorders: Yes Hx Diabetes Mellitus Type 2: Yes Hx Hypothyroidism: Yes - HEMATOLOGICAL/ONCOLOGICAL Hx Blood Disorders: No - INTEGUMENTARY Hx Dermatological Problems: Yes Other/Comment: pressure ulcer - MUSCULOSKELETAL/RHEUMATOLOGICAL Hx Musculoskeletal Disorders: Yes Hx Falls: Yes - GASTROINTESTINAL Hx Gastrointestinal Disorders: Yes Other/Comment: acities - GENITOURINARY/GYNECOLOGICAL Hx Genitourinary Disorders: Yes Hx Prostate Problems: Yes - PSYCHIATRIC Hx Psychophysiologic Disorder: No Hx Substance Use: No - SURGICAL HISTORY Hx Surgeries: Yes Hx Thyroidectomy: Yes Other/Comment: prostate surgery - ANESTHESIA Hx Anesthesia: Yes Hx Anesthesia Reactions: No Hx Malignant Hyperthermia: No Has any member of the family had a problem w/ anesthesia?: No Meds Allergies/Adverse Reactions: Allergies Allergy/AdvReac Type Severity Reaction Status Date / Time No Known Allergies Allergy Verified 12/27/17 20:33 - Medications Medications: Current Medications Albumin Human (Albumin Human 25% (12.5 Gm/50 Ml)) 25 gm IV Q6 [facility] Stop: 01/23/18 06:01 Dextrose (Dextrose 50% Inj) 0 ml IV STAT PRN; Protocol PRN Reason: Hypoglycemia Protocol Dextrose (Glutose 15) 0 gm PO ONCE PRN; Protocol PRN Reason: Hypoglycemia Protocol Glucagon (Glucagen Diagnostic Kit) 0 mg IM STAT PRN; Protocol PRN Reason: Hypoglycemia Protocol Heparin Sodium (Porcine) (Heparin) 5,000 units SC Q8 [facility] Last Admin: 01/22/18 15:07 Dose: 5,000 units Dextrose (Dextrose 5% In Water 1000 Ml) 1,000 mls @ 0 mls/hr IV .Q0M PRN; Protocol PRN Reason: Hypoglycemia Protocol Piperacillin Sod/Tazobactam Sod (Zosyn 3.375 Gm Iv Premix) 3.375 gm in 50 mls @ 100 mls/hr IVPB Q8H [facility]; Protocol Last Admin: 01/22/18 14:38 Dose: 100 mls/hr Insulin Aspart (Novolog) 0 unit SC ACHS [facility]; Protocol Last Admin: 01/22/18 11:57 Dose: 1 unit Levothyroxine Sodium (Synthroid) 200 mcg PO DAILY@0630 [facility] Last Admin: 01/22/18 05:37 Dose: 200 mcg Sodium Bicarbonate (Sodium Bicarbonate Tab) 1,300 mg PO BID [facility] Results - Vital Signs Recent Vital Signs: Last Vital Signs Temp 97.2 F L 01/22/18 15:50 Pulse 84 01/22/18 15:50 Resp 20 01/22/18 15:50 BP 118/69 01/22/18 15:50 Pulse Ox 95 01/22/18 15:50 - Labs Result Diagrams: 01/22/18 07:31 01/22/18 07:31 Labs: Laboratory Results - last 24 hr 01/21/18 01/21/18 01/21/18 12:39 19:23 20:23 WBC RBC Hgb Hct MCV MCH MCHC RDW Plt Count MPV Neut % (Auto) Lymph % (Auto) [place] % (Auto) Eos % (Auto) Baso % (Auto) Neut # (Auto) Lymph # (Auto) [place] # (Auto) Eos # (Auto) Baso # (Auto) Neutrophils % (Manual) Band Neutrophils % Lymphocytes % (Manual) Monocytes % (Manual) Platelet Estimate Anisocytosis (manual) Sodium 145 Potassium 6.0 H Chloride 116 H Carbon Dioxide 19 L Anion Gap 16 BUN 70 H Creatinine 1.7 H Est GFR ( Amer) 47 Est GFR (Non-Af Amer) 39 POC Glucose (mg/dL) 140 H Random Glucose 136 H Calcium 9.0 Phosphorus Magnesium Total Bilirubin AST ALT Alkaline Phosphatase Total Protein Albumin Globulin Albumin/Globulin Ratio Urine Color Veronica Urine Clarity Hazy Urine pH 5.0 Ur Specific [place] 1.014 Urine Protein Negative Urine Glucose (UA) Normal Urine Ketones Negative Urine Blood 2+ H Urine Nitrate Negative Urine Bilirubin Negative Urine Urobilinogen Normal Ur Leukocyte Esterase 3+ H Urine WBC (Auto) 27 H Urine RBC (Auto) 12 H Ur Squamous Epith Cells 3 Urine Bacteria Occ H Ur Random Sodium Fluid Source Fluid Appearance Fluid WBC Fluid RBC Fluid Tot Cell Count Fluid Neutrophils Fluid Lymphocytes Fld Monocyte/Macrophag Fluid Comment 01/21/18 01/22/18 01/22/18 21:50 07:31 07:31 WBC 20.4 H RBC 3.14 L Hgb 10.5 L Hct 31.3 L MCV 99.6 H MCH 33.3 H MCHC 33.5 RDW 15.4 H Plt Count 227 MPV 9.3 Neut % (Auto) 85.4 H Lymph % (Auto) 4.7 L [place] % (Auto) 8.9 Eos % (Auto) 0.3 Baso % (Auto) 0.7 Neut # (Auto) 17.4 H Lymph # (Auto) 0.9 L [place] # (Auto) 1.8 H Eos # (Auto) 0.1 Baso # (Auto) 0.1 Neutrophils % (Manual) 90 H Band Neutrophils % 2 Lymphocytes % (Manual) 4 L Monocytes % (Manual) 4 Platelet Estimate Normal Anisocytosis (manual) Slight Sodium 146 Potassium 5.7 H Chloride 119 H Carbon Dioxide 17 L Anion Gap 15 BUN 73 H Creatinine 1.9 H Est GFR ( Amer) 41 Est GFR (Non-Af Amer) 34 POC Glucose (mg/dL) 261 H Random Glucose 142 H Calcium 8.8 Phosphorus 3.8 Magnesium 2.5 H Total Bilirubin 1.1 AST 45 ALT 25 Alkaline Phosphatase 232 H Total Protein 5.8 L Albumin 2.2 L Globulin 3.6 Albumin/Globulin Ratio 0.6 L Urine Color Urine Clarity Urine pH Ur Specific [place] Urine Protein Urine Glucose (UA) Urine Ketones Urine Blood Urine Nitrate Urine Bilirubin Urine Urobilinogen Ur Leukocyte Esterase Urine WBC (Auto) Urine RBC (Auto) Ur Squamous Epith Cells Urine Bacteria Ur Random Sodium Fluid Source Fluid Appearance Fluid WBC Fluid RBC Fluid Tot Cell Count Fluid Neutrophils Fluid Lymphocytes Fld Monocyte/Macrophag Fluid Comment 01/22/18 01/22/18 01/22/18 08:45 11:04 12:39 WBC RBC Hgb Hct MCV MCH MCHC RDW Plt Count MPV Neut % (Auto) Lymph % (Auto) [place] % (Auto) Eos % (Auto) Baso % (Auto) Neut # (Auto) Lymph # (Auto) [place] # (Auto) Eos # (Auto) Baso # (Auto) Neutrophils % (Manual) Band Neutrophils % Lymphocytes % (Manual) Monocytes % (Manual) Platelet Estimate Anisocytosis (manual) Sodium Potassium Chloride Carbon Dioxide Anion Gap BUN Creatinine Est GFR ( Amer) Est GFR (Non-Af Amer) POC Glucose (mg/dL) 143 H 176 H Random Glucose Calcium Phosphorus Magnesium Total Bilirubin AST ALT Alkaline Phosphatase Total Protein Albumin Globulin Albumin/Globulin Ratio Urine Color Urine Clarity Urine pH Ur Specific [place] Urine Protein Urine Glucose (UA) Urine Ketones Urine Blood Urine Nitrate Urine Bilirubin Urine Urobilinogen Ur Leukocyte Esterase Urine WBC (Auto) Urine RBC (Auto) Ur Squamous Epith Cells Urine Bacteria Ur Random Sodium < 5 Fluid Source Fluid Appearance Fluid WBC Fluid RBC Fluid Tot Cell Count Fluid Neutrophils Fluid Lymphocytes Fld Monocyte/Macrophag Fluid Comment 01/22/18 12:51 WBC RBC Hgb Hct MCV MCH MCHC RDW Plt Count MPV Neut % (Auto) Lymph % (Auto) [place] % (Auto) Eos % (Auto) Baso % (Auto) Neut # (Auto) Lymph # (Auto) [place] # (Auto) Eos # (Auto) Baso # (Auto) Neutrophils % (Manual) Band Neutrophils % Lymphocytes % (Manual) Monocytes % (Manual) Platelet Estimate Anisocytosis (manual) Sodium Potassium Chloride Carbon Dioxide Anion Gap BUN Creatinine Est GFR ( Amer) Est GFR (Non-Af Amer) POC Glucose (mg/dL) Random Glucose Calcium Phosphorus Magnesium Total Bilirubin AST ALT Alkaline Phosphatase Total Protein Albumin Globulin Albumin/Globulin Ratio Urine Color Urine Clarity Urine pH Ur Specific [place] Urine Protein Urine Glucose (UA) Urine Ketones Urine Blood Urine Nitrate Urine Bilirubin Urine Urobilinogen Ur Leukocyte Esterase Urine WBC (Auto) Urine RBC (Auto) Ur Squamous Epith Cells Urine Bacteria Ur Random Sodium Fluid Source Peritoneal Fluid Appearance Sl cloudy Fluid WBC 1277.0 H Fluid RBC 1068.0 H Fluid Tot Cell Count 100 H Fluid Neutrophils 88.0 H Fluid Lymphocytes 2.0 H Fld Monocyte/Macrophag 10 H Fluid Comment
[2018-01-22] MEDS ORDERED: Albumin Human 5% (12.5 gm/250 ml) IV SCH (17:00)
--- NOTE | 2018-01-22 17:17 | CP.PCM.HP ---
Present on Admission - Present on Admission Any Indicators Present on Admission: No Past Patient History - Infectious Disease Hx of Infectious Diseases: None - Past Medical History & Family History Past Medical History?: Yes - Past Social History Smoking Status: Never Smoked - CARDIAC Hx Cardiac Disorders: Yes Hx Atrial Fibrillation: Yes Hx Hypercholesterolemia: Yes Hx Hypertension: Yes - PULMONARY Hx Respiratory Disorders: No - NEUROLOGICAL Hx Neurological Disorder: Yes HX Cerebrovascular Accident: Yes Hx Dementia: Yes - HEENT Hx HEENT Problems: No - RENAL Hx Chronic Kidney Disease: No - ENDOCRINE/METABOLIC Hx Endocrine Disorders: Yes Hx Diabetes Mellitus Type 2: Yes Hx Hypothyroidism: Yes - HEMATOLOGICAL/ONCOLOGICAL Hx Blood Disorders: No - INTEGUMENTARY Hx Dermatological Problems: Yes Other/Comment: pressure ulcer - MUSCULOSKELETAL/RHEUMATOLOGICAL Hx Musculoskeletal Disorders: Yes Hx Falls: Yes - GASTROINTESTINAL Hx Gastrointestinal Disorders: Yes Other/Comment: acities - GENITOURINARY/GYNECOLOGICAL Hx Genitourinary Disorders: Yes Hx Prostate Problems: Yes - PSYCHIATRIC Hx Psychophysiologic Disorder: No Hx Substance Use: No - SURGICAL HISTORY Hx Surgeries: Yes Hx Thyroidectomy: Yes Other/Comment: prostate surgery - ANESTHESIA Hx Anesthesia: Yes Hx Anesthesia Reactions: No Hx Malignant Hyperthermia: No Has any member of the family had a problem w/ anesthesia?: No Meds Allergies/Adverse Reactions: Allergies Allergy/AdvReac Type Severity Reaction Status Date / Time No Known Allergies Allergy Verified 12/27/17 20:33 Results - Vital Signs Recent Vital Signs: Last Vital Signs Temp 97.2 F L 01/22/18 15:50 Pulse 84 01/22/18 15:50 Resp 20 01/22/18 15:50 BP 118/69 01/22/18 15:50 Pulse Ox 95 01/22/18 15:50 - Labs Result Diagrams: 01/27/18 11:45 01/27/18 11:45 Labs: Laboratory Results - last 24 hr 01/21/18 01/21/18 01/21/18 12:39 19:23 20:23 WBC RBC Hgb Hct MCV MCH MCHC RDW Plt Count MPV Neut % (Auto) Lymph % (Auto) [place] % (Auto) Eos % (Auto) Baso % (Auto) Neut # (Auto) Lymph # (Auto) [place] # (Auto) Eos # (Auto) Baso # (Auto) Neutrophils % (Manual) Band Neutrophils % Lymphocytes % (Manual) Monocytes % (Manual) Platelet Estimate Anisocytosis (manual) Sodium 145 Potassium 6.0 H Chloride 116 H Carbon Dioxide 19 L Anion Gap 16 BUN 70 H Creatinine 1.7 H Est GFR ( Amer) 47 Est GFR (Non-Af Amer) 39 POC Glucose (mg/dL) 140 H Random Glucose 136 H Calcium 9.0 Phosphorus Magnesium Total Bilirubin AST ALT Alkaline Phosphatase Total Protein Albumin Globulin Albumin/Globulin Ratio Urine Color Veronica Urine Clarity Hazy Urine pH 5.0 Ur Specific [place] 1.014 Urine Protein Negative Urine Glucose (UA) Normal Urine Ketones Negative Urine Blood 2+ H Urine Nitrate Negative Urine Bilirubin Negative Urine Urobilinogen Normal Ur Leukocyte Esterase 3+ H Urine WBC (Auto) 27 H Urine RBC (Auto) 12 H Ur Squamous Epith Cells 3 Urine Bacteria Occ H Ur Random Sodium Fluid Source Fluid Appearance Fluid WBC Fluid RBC Fluid Tot Cell Count Fluid Neutrophils Fluid Lymphocytes Fld Monocyte/Macrophag Fluid Comment 01/21/18 01/22/18 01/22/18 21:50 07:31 07:31 WBC 20.4 H RBC 3.14 L Hgb 10.5 L Hct 31.3 L MCV 99.6 H MCH 33.3 H MCHC 33.5 RDW 15.4 H Plt Count 227 MPV 9.3 Neut % (Auto) 85.4 H Lymph % (Auto) 4.7 L [place] % (Auto) 8.9 Eos % (Auto) 0.3 Baso % (Auto) 0.7 Neut # (Auto) 17.4 H Lymph # (Auto) 0.9 L [place] # (Auto) 1.8 H Eos # (Auto) 0.1 Baso # (Auto) 0.1 Neutrophils % (Manual) 90 H Band Neutrophils % 2 Lymphocytes % (Manual) 4 L Monocytes % (Manual) 4 Platelet Estimate Normal Anisocytosis (manual) Slight Sodium 146 Potassium 5.7 H Chloride 119 H Carbon Dioxide 17 L Anion Gap 15 BUN 73 H Creatinine 1.9 H Est GFR ( Amer) 41 Est GFR (Non-Af Amer) 34 POC Glucose (mg/dL) 261 H Random Glucose 142 H Calcium 8.8 Phosphorus 3.8 Magnesium 2.5 H Total Bilirubin 1.1 AST 45 ALT 25 Alkaline Phosphatase 232 H Total Protein 5.8 L Albumin 2.2 L Globulin 3.6 Albumin/Globulin Ratio 0.6 L Urine Color Urine Clarity Urine pH Ur Specific [place] Urine Protein Urine Glucose (UA) Urine Ketones Urine Blood Urine Nitrate Urine Bilirubin Urine Urobilinogen Ur Leukocyte Esterase Urine WBC (Auto) Urine RBC (Auto) Ur Squamous Epith Cells Urine Bacteria Ur Random Sodium Fluid Source Fluid Appearance Fluid WBC Fluid RBC Fluid Tot Cell Count Fluid Neutrophils Fluid Lymphocytes Fld Monocyte/Macrophag Fluid Comment 01/22/18 01/22/18 01/22/18 08:45 11:04 12:39 WBC RBC Hgb Hct MCV MCH MCHC RDW Plt Count MPV Neut % (Auto) Lymph % (Auto) [place] % (Auto) Eos % (Auto) Baso % (Auto) Neut # (Auto) Lymph # (Auto) [place] # (Auto) Eos # (Auto) Baso # (Auto) Neutrophils % (Manual) Band Neutrophils % Lymphocytes % (Manual) Monocytes % (Manual) Platelet Estimate Anisocytosis (manual) Sodium Potassium Chloride Carbon Dioxide Anion Gap BUN Creatinine Est GFR ( Amer) Est GFR (Non-Af Amer) POC Glucose (mg/dL) 143 H 176 H Random Glucose Calcium Phosphorus Magnesium Total Bilirubin AST ALT Alkaline Phosphatase Total Protein Albumin Globulin Albumin/Globulin Ratio Urine Color Urine Clarity Urine pH Ur Specific [place] Urine Protein Urine Glucose (UA) Urine Ketones Urine Blood Urine Nitrate Urine Bilirubin Urine Urobilinogen Ur Leukocyte Esterase Urine WBC (Auto) Urine RBC (Auto) Ur Squamous Epith Cells Urine Bacteria Ur Random Sodium < 5 Fluid Source Fluid Appearance Fluid WBC Fluid RBC Fluid Tot Cell Count Fluid Neutrophils Fluid Lymphocytes Fld Monocyte/Macrophag Fluid Comment 01/22/18 01/22/18 12:51 16:35 WBC RBC Hgb Hct MCV MCH MCHC RDW Plt Count MPV Neut % (Auto) Lymph % (Auto) [place] % (Auto) Eos % (Auto) Baso % (Auto) Neut # (Auto) Lymph # (Auto) [place] # (Auto) Eos # (Auto) Baso # (Auto) Neutrophils % (Manual) Band Neutrophils % Lymphocytes % (Manual) Monocytes % (Manual) Platelet Estimate Anisocytosis (manual) Sodium Potassium Chloride Carbon Dioxide Anion Gap BUN Creatinine Est GFR ( Amer) Est GFR (Non-Af Amer) POC Glucose (mg/dL) 183 H Random Glucose Calcium Phosphorus Magnesium Total Bilirubin AST ALT Alkaline Phosphatase Total Protein Albumin Globulin Albumin/Globulin Ratio Urine Color Urine Clarity Urine pH Ur Specific [place] Urine Protein Urine Glucose (UA) Urine Ketones Urine Blood Urine Nitrate Urine Bilirubin Urine Urobilinogen Ur Leukocyte Esterase Urine WBC (Auto) Urine RBC (Auto) Ur Squamous Epith Cells Urine Bacteria Ur Random Sodium Fluid Source Peritoneal Fluid Appearance Sl cloudy Fluid WBC 1277.0 H Fluid RBC 1068.0 H Fluid Tot Cell Count 100 H Fluid Neutrophils 88.0 H Fluid Lymphocytes 2.0 H Fld Monocyte/Macrophag 10 H Fluid Comment
[2018-01-22] MEDS: Thiamine 100 mg/ml Inj IV SCH (18:06)
[2018-01-22] MEDS: Sodium Chloride 0.45% 1,000 ML IV SCH (18:10)
[2018-01-23] MEDS: Levothyroxine 200 MCG TAB PO SCH (05:43)
[2018-01-23 08:00] LABS: HEMOGLOBIN 9.3 g/dL (12.0-18.0); MEAN CORPUSCULAR HEMOGLOBIN 32.6 pg (27.0-31.0); MEAN CORPUSCULAR HGB CONC 32.9 g/dL (33.0-37.0); MEAN PLATELET VOLUME 9.1 fL (7.2-11.7); RBC 2.86 Mil/uL (4.40-5.90); RED CELL DISTRIBUTION WIDTH 15.7 % (11.5-14.5); WHITE BLOOD COUNT 16.9 K/uL (4.8-10.8)
[2018-01-23] MEDS: (Novolog) Insulin Aspart, Recombinant 100 u/ml 10 ml vial SC SCH ×4 (08:03→21:37)
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
[2018-01-23 08:14] LABS: BILIRUBIN,DIRECT 0.9 mg/dL (0.0-0.4); CALCIUM 8.9 mg/dl (8.6-10.4)
[2018-01-23] MEDS: Thiamine 100 mg/ml Inj IV SCH (10:04)
[2018-01-23] MEDS: Sodium Chloride 0.45% 1,000 ML IV SCH (10:06)
[2018-01-23] MEDS ORDERED: Dextrose 5%/0.45% NS 1,000 ML IV SCH (14:00)
--- NOTE | 2018-01-23 14:02 | CP.PCM.PN ---
Subjective - Date & Time of Evaluation Date of Evaluation: 01/23/18 Time of Evaluation: 13:59 - Subjective Subjective: Patient is lethargic today. Objective - Vital Signs/Intake and Output Vital Signs (last 24 hours): Temp Pulse Resp BP Pulse Ox 98.3 F 96 H 18 132/65 94 L 01/23/18 07:00 01/23/18 09:40 01/23/18 07:00 01/23/18 07:00 01/23/18 07:00 Intake and Output: 01/23/18 01/23/18 06:59 18:59 Intake Total 1850 Output Total 500 Balance 1350 - Medications Medications: Current Medications Dextrose (Dextrose 50% Inj) 0 ml IV STAT PRN; Protocol PRN Reason: Hypoglycemia Protocol Dextrose (Glutose 15) 0 gm PO ONCE PRN; Protocol PRN Reason: Hypoglycemia Protocol Glucagon (Glucagen Diagnostic Kit) 0 mg IM STAT PRN; Protocol PRN Reason: Hypoglycemia Protocol Heparin Sodium (Porcine) (Heparin) 5,000 units SC Q8 [facility] Last Admin: 01/23/18 13:00 Dose: 5,000 units Dextrose (Dextrose 5% In Water 1000 Ml) 1,000 mls @ 0 mls/hr IV .Q0M PRN; Protocol PRN Reason: Hypoglycemia Protocol Cefotaxime Sodium 2 gm/ Sodium (Chloride) 100 mls @ 100 mls/hr IV Q12H [facility]; Protocol Last Admin: 01/23/18 06:11 Dose: 100 mls/hr Insulin Aspart (Novolog) 0 unit SC ACHS [facility]; Protocol Last Admin: 01/23/18 12:20 Dose: 2 unit Levothyroxine Sodium (Synthroid) 200 mcg PO DAILY@0630 [facility] Last Admin: 01/23/18 05:43 Dose: 200 mcg Sodium Bicarbonate (Sodium Bicarbonate Tab) 1,300 mg PO BID [facility] Last Admin: 01/23/18 10:04 Dose: 1,300 mg Thiamine HCl (Vitamin B1 Inj) 100 mg IV DAILY [facility] Last Admin: 01/23/18 10:04 Dose: 100 mg - Labs Labs: 01/23/18 07:51 01/23/18 07:51 PT 14.4 SECONDS (9.7-12.2) H 01/21/18 12:58 INR 1.3 01/21/18 12:58 APTT 38 SECONDS (21-34) H 01/21/18 12:58 - Constitutional Appears: Other - Head Exam Head Exam: ATRAUMATIC, NORMOCEPHALIC - Neck Exam Neck Exam: absent: Lymphadenopathy, Thyromegaly - Respiratory Exam Respiratory Exam: NORMAL BREATHING PATTERN. absent: Rales, Rhonchi, Wheezes - Cardiovascular Exam Cardiovascular Exam: REGULAR RHYTHM, +S1, +S2. absent: Gallop, Rubs, Murmur - GI/Abdominal Exam GI & Abdominal Exam: Distended, Soft, Normal Bowel Sounds. absent: Tenderness, Organomegaly - Rectal Exam Rectal Exam: Deferred - Extremities Exam Extremities Exam: absent: Calf Tenderness, Pedal Edema Assessment and Plan (1) Cirrhosis Assessment & Plan: Patient is lethargic today, possibly due to hepatic encephalopathy. Will start lactulose and re-evaluate. The ascitic fluid is consistent with SBP, with WBC 1277, 80% polys. The antibiotic was switched to cefotaxime, and 125 mg of albumn was administered. Status: Acute
[2018-01-23 14:45] LABS: CALCIUM 8.6 mg/dl (8.6-10.4)
--- NOTE | 2018-01-23 15:19 | CP.PCM.PN ---
Subjective - Date & Time of Evaluation Date of Evaluation: 01/23/18 Time of Evaluation: 15:18 - Subjective Subjective: Nephrology Consultation Note Assessment: critical Acute Kidney Injury (N17.9) likely due to pre-renal with hyperkalemia likely contributed by triple RAAS blockers NAGMA anemia with sepsis ? SBP cirrhosis with ascites Atrial Fibrillation, Dementia, HTN, Hypercholesterolemia, Hyperlipidemia, Hypothyroidism, DM AMS Plan No acute need for renal replacement therapy at this time. Maintain hemodynamics stable. Avoid hypotension. hold ACEI/ARB/aldactone due to recent GILDARDO. avoid acei +arb combination in future as associated with increased risk of GILDARDO/hyperkalemia and hypotension hold norvasc for now Monitor Input/Output, daily weights and renal function with basic metabolic panel s/p IV albumin 125 gm Increased IVF to 75 ml/hr started sodium bicarb pike catheterization due to his AMS GI recs appreciated Dose meds/antibiotics for reduced GFR. Avoid fleets enema/magnesium based laxatives. Avoid nephrotoxins/NSAIDs/ iodinated contrast (unless needed emergently) Glycemic control Further work up for as per primary team Thanks for allowing me to participate in care of your patient. Will follow patient with you. Please call if any Qs. had d/w team and son bedside Dr Adriano Del Rosario Office: [phone] CC: unable to obtain reason for consult: GILDARDO HPI: Pit is a 82 y/o M with hx of Atrial Fibrillation, Dementia, HTN, Hypercholesterolemia, Hyperlipidemia, Hypothyroidism, DM who recently was diagnosed and admitted to hospital with UTI with cirrhosis with ascites with neg work up as ? due to steatohepatitis was brought by family as he was very lethargic yesterday. pt is admitted with sepsis ? SBP and GILDARDO with hyperkalemia. pt was on lasix with aldacone, ramipril and losartan. son bedside and provided hx initially. ROS: Noted events overnight. Patients unable to provide hx pt still lethargic but more awake, was able to eat earlier Physical Examination: General Appearance: in no acute respiratory distress, ill appearing, lethargic Vitals reviewed and noted as below Head; Atraumatic, normocephalic ENT: no ulcers no thrush. Tongue is midline/very dry. Oropharynx: no rash or ulcers. EYES: Pupils are equal, round, constricted and reactive to light accommodation. Eye muscles and extraocular movement intact. Sclera is anicteric. Neck; supple no lymphadenopathy, no thyromegaly or bruit Lungs: Normal respiratory rate/effort. Breath sounds bilateral clear anteriorly Heart: Normal rate. s1s2 normal. No rub or gallop. Extremities: 1+ edema. No varicose veins Neurological: Patient is not oriented to person, place and time and lethargic Skin: Warm and dry. Normal turgor. No rash. Palpitation: Normal elasticity for age. Abdomen: Abdomen is soft. Bowel sounds +. There is no abdominal tenderness, no guarding/rigidity no organomegaly, ascitic Psych: unable MSK: no joint tenderness or swelling. Digits and nails normal, no deformity : kidney or bladder not palpable however limited exam Labs/imaging reviewed. Past medical history, past surgical history, family history, social history, allergy reviewed and noted as below Family hx: no hx of CKD. Rest non-contributory work up: UA 2+ blood , urine Na <5 renal imaging left renal cyst and small stone normal LVEF on echo Objective - Vital Signs/Intake and Output Vital Signs (last 24 hours): Temp Pulse Resp BP Pulse Ox 98.3 F 96 H 18 132/65 94 L 01/23/18 07:00 01/23/18 09:40 01/23/18 07:00 01/23/18 07:00 01/23/18 07:00 Intake and Output: 01/23/18 01/23/18 06:59 18:59 Intake Total 1850 Output Total 500 Balance 1350 - Medications Medications: Current Medications Dextrose (Dextrose 50% Inj) 0 ml IV STAT PRN; Protocol PRN Reason: Hypoglycemia Protocol Dextrose (Glutose 15) 0 gm PO ONCE PRN; Protocol PRN Reason: Hypoglycemia Protocol Glucagon (Glucagen Diagnostic Kit) 0 mg IM STAT PRN; Protocol PRN Reason: Hypoglycemia Protocol Heparin Sodium (Porcine) (Heparin) 5,000 units SC Q8 [facility] Last Admin: 01/23/18 13:00 Dose: 5,000 units Dextrose (Dextrose 5% In Water 1000 Ml) 1,000 mls @ 0 mls/hr IV .Q0M PRN; Protocol PRN Reason: Hypoglycemia Protocol Cefotaxime Sodium 2 gm/ Sodium (Chloride) 100 mls @ 100 mls/hr IV Q12H [facility]; Protocol Last Admin: 01/23/18 06:11 Dose: 100 mls/hr Dextrose/Sodium Chloride (Dextrose 5%/0.45% Ns 1000 Ml) 1,000 mls @ 75 mls/hr IV .[id number] [facility] Insulin Aspart (Novolog) 0 unit SC ACHS [facility]; Protocol Last Admin: 01/23/18 12:20 Dose: 2 unit Levothyroxine Sodium (Synthroid) 200 mcg PO DAILY@0630 [facility] Last Admin: 01/23/18 05:43 Dose: 200 mcg Sodium Bicarbonate (Sodium Bicarbonate Tab) 1,300 mg PO BID [facility] Last Admin: 01/23/18 10:04 Dose: 1,300 mg Thiamine HCl (Vitamin B1 Inj) 100 mg IV DAILY [facility] Last Admin: 01/23/18 10:04 Dose: 100 mg - Labs Labs: 01/23/18 07:51 01/23/18 14:20 PT 14.4 SECONDS (9.7-12.2) H 01/21/18 12:58 INR 1.3 01/21/18 12:58 APTT 38 SECONDS (21-34) H 01/21/18 12:58
[2018-01-23] MEDS: Dextrose 5%/0.45% NS 1,000 ML IV SCH (17:01)
--- NOTE | 2018-01-23 18:38 | CP.PCM.PN ---
Subjective - Date & Time of Evaluation Date of Evaluation: 01/23/18 Time of Evaluation: 08:00 - Subjective Subjective: weak and lethargic Objective - Vital Signs/Intake and Output Vital Signs (last 24 hours): Temp Pulse Resp BP Pulse Ox 98 F 85 20 116/59 L 97 01/23/18 15:00 01/23/18 15:00 01/23/18 15:00 01/23/18 15:00 01/23/18 15:00 Intake and Output: 01/23/18 01/23/18 06:59 18:59 Intake Total 1850 540 Output Total 500 350 Balance 1350 190 - Medications Medications: Current Medications Dextrose (Dextrose 50% Inj) 0 ml IV STAT PRN; Protocol PRN Reason: Hypoglycemia Protocol Dextrose (Glutose 15) 0 gm PO ONCE PRN; Protocol PRN Reason: Hypoglycemia Protocol Glucagon (Glucagen Diagnostic Kit) 0 mg IM STAT PRN; Protocol PRN Reason: Hypoglycemia Protocol Heparin Sodium (Porcine) (Heparin) 5,000 units SC Q8 [facility] Last Admin: 01/23/18 13:00 Dose: 5,000 units Dextrose (Dextrose 5% In Water 1000 Ml) 1,000 mls @ 0 mls/hr IV .Q0M PRN; Protocol PRN Reason: Hypoglycemia Protocol Cefotaxime Sodium 2 gm/ Sodium (Chloride) 100 mls @ 100 mls/hr IV Q12H [facility]; Protocol Last Admin: 01/23/18 06:11 Dose: 100 mls/hr Dextrose/Sodium Chloride (Dextrose 5%/0.45% Ns 1000 Ml) 1,000 mls @ 75 mls/hr IV .[id number] [facility] Last Admin: 01/23/18 17:01 Dose: Not Given Insulin Aspart (Novolog) 0 unit SC ACHS [facility]; Protocol Last Admin: 01/23/18 12:20 Dose: 2 unit Levothyroxine Sodium (Synthroid) 200 mcg PO DAILY@0630 [facility] Last Admin: 01/23/18 05:43 Dose: 200 mcg Sodium Bicarbonate (Sodium Bicarbonate Tab) 1,300 mg PO BID [facility] Last Admin: 01/23/18 10:04 Dose: 1,300 mg Thiamine HCl (Vitamin B1 Inj) 100 mg IV DAILY [facility] Last Admin: 01/23/18 10:04 Dose: 100 mg - Labs Labs: 01/23/18 07:51 01/23/18 14:20 PT 14.4 SECONDS (9.7-12.2) H 01/21/18 12:58 INR 1.3 01/21/18 12:58 APTT 38 SECONDS (21-34) H 01/21/18 12:58 - Constitutional Appears: Non-toxic, Confused, Chronically Ill - Head Exam Head Exam: NORMOCEPHALIC - Eye Exam Eye Exam: PERRL - ENT Exam ENT Exam: Mucous Membranes Dry - Neck Exam Neck Exam: absent: Lymphadenopathy - Respiratory Exam Respiratory Exam: Decreased Breath Sounds, Rhonchi - Cardiovascular Exam Cardiovascular Exam: REGULAR RHYTHM, +S1, +S2 - GI/Abdominal Exam GI & Abdominal Exam: Distended, Soft. absent: Tenderness - Rectal Exam Rectal Exam: Deferred - Exam Exam: NORMAL INSPECTION Assessment and Plan (1) Cirrhosis Status: Acute (2) Hyperkalemia Status: Acute (3) Leukocytosis Status: Acute (4) SOB (shortness of breath) Status: Acute (5) Ascites Status: Acute (6) Hepatic encephalopathy syndrome Status: Acute (7) Hepatic encephalopathy syndrome Status: Acute - Assessment and Plan (Free Text) Assessment: cont iv fluids antibiotics lactulose GI and surgery on board cultures pending
[2018-01-23 19:37] LABS: ABG ALLEN TEST POS; ARTERIAL BLOOD GAS HCO3 19.6 mmol/L (21-28); ARTERIAL BLOOD GAS O2 SAT 96.6 % (95-98); ARTERIAL BLOOD GAS PCO2 31 mm/Hg (35-45); ARTERIAL BLOOD GAS PH 7.36 (7.35-7.45); ARTERIAL BLOOD GAS PO2 79 mm/Hg (80-100); ARTERIAL BLOOD GAS TCO2 18.5 mmol/L (22-28)
--- NOTE | 2018-01-23 23:59 | CP.PCM.PN ---
Objective - Vital Signs/Intake and Output Vital Signs (last 24 hours): Temp Pulse Resp BP Pulse Ox 98 F 85 20 116/59 L 97 01/23/18 15:00 01/23/18 15:00 01/23/18 15:00 01/23/18 15:00 01/23/18 15:00 Intake and Output: 01/23/18 01/24/18 18:59 06:59 Intake Total 540 520 Output Total 350 200 Balance 190 320 - Medications Medications: Current Medications Dextrose (Dextrose 50% Inj) 0 ml IV STAT PRN; Protocol PRN Reason: Hypoglycemia Protocol Dextrose (Glutose 15) 0 gm PO ONCE PRN; Protocol PRN Reason: Hypoglycemia Protocol Glucagon (Glucagen Diagnostic Kit) 0 mg IM STAT PRN; Protocol PRN Reason: Hypoglycemia Protocol Heparin Sodium (Porcine) (Heparin) 5,000 units SC Q8 [facility] Last Admin: 01/23/18 21:34 Dose: 5,000 units Dextrose (Dextrose 5% In Water 1000 Ml) 1,000 mls @ 0 mls/hr IV .Q0M PRN; Niels col PRN Reason: Hypoglycemia Protocol Cefotaxime Sodium 2 gm/ Sodium (Chloride) 100 mls @ 100 mls/hr IV Q12H [facility]; Protocol Last Admin: 01/23/18 19:00 Dose: Not Given Dextrose/Sodium Chloride (Dextrose 5%/0.45% Ns 1000 Ml) 1,000 mls @ 75 mls/hr IV .[id number] [facility] Last Admin: 01/23/18 17:01 Dose: Not Given Insulin Aspart (Novolog) 0 unit SC ACHS [facility]; Protocol Last Admin: 01/23/18 21:37 Dose: Not Given Levothyroxine Sodium (Synthroid) 200 mcg PO DAILY@0630 [facility] Last Admin: 01/23/18 05:43 Dose: 200 mcg Sodium Bicarbonate (Sodium Bicarbonate Tab) 1,300 mg PO BID [facility] Last Admin: 01/23/18 19:10 Dose: 1,300 mg Thiamine HCl (Vitamin B1 Inj) 100 mg IV DAILY [facility] Last Admin: 01/23/18 10:04 Dose: 100 mg - Labs Labs: 01/23/18 07:51 01/23/18 14:20 PT 14.4 SECONDS (9.7-12.2) H 01/21/18 12:58 INR 1.3 01/21/18 12:58 APTT 38 SECONDS (21-34) H 01/21/18 12:58
[2018-01-24] MEDS: Dextrose 5%/0.45% NS 1,000 ML IV SCH (04:18)
[2018-01-24] MEDS: Levothyroxine 200 MCG TAB PO SCH (06:07)
[2018-01-24] MEDS: (Novolog) Insulin Aspart, Recombinant 100 u/ml 10 ml vial SC SCH ×4 (08:13→21:52)
--- NOTE | 2018-01-24 10:32 | CP.PCM.PN ---
Subjective - Date & Time of Evaluation Date of Evaluation: 01/24/18 Time of Evaluation: 10:31 - Subjective Subjective: Nephrology Consultation Note Assessment: stable Acute Kidney Injury (N17.9) likely due to pre-renal with hyperkalemia likely contributed by triple RAAS blockers NAGMA anemia with sepsis ? SBP cirrhosis with ascites Atrial Fibrillation, Dementia, HTN, Hypercholesterolemia, Hyperlipidemia, Hypothyroidism, DM AMS Plan labs today ordered No acute need for renal replacement therapy at this time. Maintain hemodynamics stable. Avoid hypotension. hold ACEI/ARB/aldactone due to recent GILDARDO. avoid acei +arb combination in future as associated with increased risk of GILDARDO/hyperkalemia and hypotension hold norvasc for now Monitor Input/Output, daily weights and renal function with basic metabolic panel s/p IV albumin 125 gm continue with IVF to 75 ml/hr started sodium bicarb pike catheterization due to his AMS GI recs appreciated Dose meds/antibiotics for reduced GFR. Avoid fleets enema/magnesium based laxatives. Avoid nephrotoxins/NSAIDs/ iodinated contrast (unless needed emergently) Glycemic control Further work up for as per primary team Thanks for allowing me to participate in care of your patient. Will follow patient with you. Please call if any Qs. had d/w team and son bedside Dr Adriano Del Rosario Office: [phone] CC: unable to obtain reason for consult: GILDARDO HPI: Pit is a 82 y/o M with hx of Atrial Fibrillation, Dementia, HTN, Hypercholesterolemia, Hyperlipidemia, Hypothyroidism, DM who recently was diagnosed and admitted to hospital with UTI with cirrhosis with ascites with neg work up as ? due to steatohepatitis was brought by family as he was very lethargic yesterday. pt is admitted with sepsis ? SBP and GILDARDO with hyperkalemia. pt was on lasix with aldacone, ramipril and losartan. son bedside and provided hx initially. ROS: Noted events overnight. Patients unable to provide hx pt more awake, able to eat and say his name son bedside Physical Examination: General Appearance: in no acute respiratory distress, better appearing, awake Vitals reviewed and noted as below Head; Atraumatic, normocephalic ENT: no ulcers no thrush. Tongue is midline/very dry. Oropharynx: no rash or ulcers. left auricle superficial abrasion + EYES: Pupils are equal, round, constricted and reactive to light accommodation. Eye muscles and extraocular movement intact. Sclera is anicteric. Neck; supple no lymphadenopathy, no thyromegaly or bruit Lungs: Normal respiratory rate/effort. Breath sounds bilateral clear anteriorly Heart: Normal rate. s1s2 normal. No rub or gallop. Extremities: no edema. No varicose veins Neurological: Patient is not oriented to person, place and time and lethargic Skin: Warm and dry. Normal turgor. No rash. Palpitation: Normal elasticity for age. Abdomen: Abdomen is soft. Bowel sounds +. There is no abdominal tenderness, no guarding/rigidity no organomegaly, ascitic Psych: unable MSK: no joint tenderness or swelling. Digits and nails normal, no deformity : kidney or bladder not palpable however limited exam Labs/imaging reviewed. Past medical history, past surgical history, family history, social history, allergy reviewed and noted as below Family hx: no hx of CKD. Rest non-contributory work up: UA 2+ blood , urine Na <5 renal imaging left renal cyst and small stone normal LVEF on echo Objective - Vital Signs/Intake and Output Vital Signs (last 24 hours): Temp Pulse Resp BP Pulse Ox 97.7 F 84 20 107/68 97 01/24/18 06:00 01/24/18 07:41 01/24/18 06:00 01/24/18 06:00 01/24/18 06:00 Intake and Output: 01/24/18 01/24/18 06:59 18:59 Intake Total 1270 Output Total 575 Balance 695 - Medications Medications: Current Medications Dextrose (Dextrose 50% Inj) 0 ml IV STAT PRN; Protocol PRN Reason: Hypoglycemia Protocol Dextrose (Glutose 15) 0 gm PO ONCE PRN; Protocol PRN Reason: Hypoglycemia Protocol Glucagon (Glucagen Diagnostic Kit) 0 mg IM STAT PRN; Protocol PRN Reason: Hypoglycemia Protocol Heparin Sodium (Porcine) (Heparin) 5,000 units SC Q8 [facility] Last Admin: 01/24/18 06:07 Dose: 5,000 units Dextrose (Dextrose 5% In Water 1000 Ml) 1,000 mls @ 0 mls/hr IV .Q0M PRN; Protocol PRN Reason: Hypoglycemia Protocol Cefotaxime Sodium 2 gm/ Sodium (Chloride) 100 mls @ 100 mls/hr IV Q12H [facility]; Protocol Last Admin: 01/24/18 06:09 Dose: 100 mls/hr Dextrose/Sodium Chloride (Dextrose 5%/0.45% Ns 1000 Ml) 1,000 mls @ 75 mls/hr IV .[id number] [facility] Last Admin: 01/24/18 04:18 Dose: Not Given Insulin Aspart (Novolog) 0 unit SC ACHS [facility]; Protocol Last Admin: 01/24/18 08:13 Dose: 1 unit Levothyroxine Sodium (Synthroid) 200 mcg PO DAILY@0630 [facility] Last Admin: 01/24/18 06:07 Dose: 200 mcg Sodium Bicarbonate (Sodium Bicarbonate Tab) 1,300 mg PO BID [facility] Last Admin: 01/24/18 10:30 Dose: 1,300 mg Thiamine HCl (Vitamin B1 Inj) 100 mg IV DAILY [facility] Last Admin: 01/23/18 10:04 Dose: 100 mg - Labs Labs: 01/23/18 07:51 01/23/18 14:20 PT 14.4 SECONDS (9.7-12.2) H 01/21/18 12:58 INR 1.3 01/21/18 12:58 APTT 38 SECONDS (21-34) H 01/21/18 12:58
[2018-01-24] MEDS ORDERED: Thiamine 100 mg/ml Inj IM SCH (10:35)
[2018-01-24] MEDS: Thiamine 100 mg/ml Inj IM SCH (11:00)
--- NOTE | 2018-01-24 12:10 | CT ---
Date of service: 01/24/2018 PROCEDURE: CT HEAD WITHOUT CONTRAST. HISTORY: Lethargy COMPARISON: None available. TECHNIQUE: Axial computed tomography images were obtained through the head/brain without intravenous contrast. Radiation dose: Total exam DLP = 1213.29 mGy-cm. This CT exam was performed using one or more of the following dose reduction techniques: Automated exposure control, adjustment of the mA and/or kV according to patient size, and/or use of iterative reconstruction technique. FINDINGS: HEMORRHAGE: No acute parenchymal, subarachnoid or extra-axial hemorrhage. BRAIN: Moderate to significant diffuse and confluent chronic white matter ischemic changes again seen extending peripherally into the deep and subcortical white matter both cerebral hemispheres. There is extension of these changes into the white matter tracts of both basal nuclei. Scattered more discrete deep and subcortical white matter, basal nuclei and right cerebellar lacunar type infarcts also present. Note that the possibility of a small hyperacute infarct cannot be excluded on this exam. Clinical correlation recommended. Marked ventricular dilatation. Findings may represent significant central volume loss with ex vacuo dilatation of the ventricles however chronic obstructive hydrocephalus (communicating type) not excluded.. Normal pressure hydrocephalus to be considered only if the clinical triad of dementia, ataxia and incontinence present. Prominent cisterna magna particular left wing more so than right. Vascular calcifications both vertebral arteries. VENTRICLES: Marked ventricular dilatation. Findings may represent significant central volume loss with ex vacuo dilatation of the ventricles however chronic obstructive hydrocephalus (communicating type) not excluded.. Normal pressure hydrocephalus to be considered only if the clinical triad of dementia, ataxia and incontinence present. CALVARIUM: No acute calvarial fractures. PARANASAL SINUSES: Unremarkable as visualized. No significant inflammatory changes. MASTOID AIR CELLS: Unremarkable as visualized. No inflammatory changes. OTHER FINDINGS: Changes of bilateral cataract surgery again noted. IMPRESSION: No acute intracranial hemorrhage. Significant and extensive chronic white matter ischemic changes with extension into the white matter tracts of both basal nuclei. Multiple more discrete bilateral white matter, basal nuclei and cerebellar ischemic changes. Marked ventricular dilatation. Findings may represent significant central volume loss with ex vacuo dilatation of the ventricles however chronic obstructive hydrocephalus (communicating type) not excluded.. Normal pressure hydrocephalus to be considered only if the clinical triad of dementia, ataxia and incontinence present.
[2018-01-24 13:43] LABS: BASO # 0.2 K/uL (0.0-0.2); BASO % 0.9 % (0.0-2.0); EOS # 0.2 K/uL (0.0-0.7); HEMOGLOBIN 10.7 g/dL (12.0-18.0); LYMPH # 0.8 K/uL (1.0-4.3); LYMPH % 4.8 % (20.0-40.0); MEAN CELL VOLUME 99.7 fL (80.0-94.0); MEAN CORPUSCULAR HEMOGLOBIN 33.2 pg (27.0-31.0); MEAN CORPUSCULAR HGB CONC 33.3 g/dL (33.0-37.0); MEAN PLATELET VOLUME 9.3 fL (7.2-11.7); MONO # 1.2 K/uL (0.0-0.8); MONO % 7.2 % (0.0-10.0); NEUT # 14.1 K/uL (1.8-7.0); NEUT % 86.1 % (50.0-75.0); PLATELET COUNT 177 K/uL (130-400); RBC 3.23 Mil/uL (4.40-5.90); RED CELL DISTRIBUTION WIDTH 15.8 % (11.5-14.5); WHITE BLOOD COUNT 16.5 K/uL (4.8-10.8)
[2018-01-24 13:57] LABS: CALCIUM 8.5 mg/dl (8.6-10.4)
[2018-01-24 14:14] LABS: ANISOCYTOSIS SLIGHT; EOSINOPHIL 1 % (0-4); HYPOCHROMIC SLIGHT; LYMPHOCYTE 4 % (20-40); MONOCYTE 5 % (0-10); NEUTROPHIL 90 % (50-75); PLATELET ESTIMATE NORMAL (NORMAL); POLYCHROMIC SLIGHT; TOTAL CELLS COUNTED 100
--- NOTE | 2018-01-24 14:20 | CP.PCM.PN ---
Subjective - Date & Time of Evaluation Date of Evaluation: 01/24/18 Time of Evaluation: 14:17 - Subjective Subjective: Mental status is unchanged. Objective - Vital Signs/Intake and Output Vital Signs (last 24 hours): Temp Pulse Resp BP Pulse Ox 97.7 F 84 20 107/68 97 01/24/18 06:00 01/24/18 13:00 01/24/18 06:00 01/24/18 06:00 01/24/18 06:00 Intake and Output: 01/24/18 01/24/18 06:59 18:59 Intake Total 1270 Output Total 575 Balance 695 - Medications Medications: Current Medications Albumin Human (Albumin Human 25% (12.5 Gm/50 Ml)) 12.5 gm IV Q2H [facility] Stop: 01/25/18 04:16 Dextrose (Dextrose 50% Inj) 0 ml IV STAT PRN; Protocol PRN Reason: Hypoglycemia Protocol Dextrose (Glutose 15) 0 gm PO ONCE PRN; Protocol PRN Reason: Hypoglycemia Protocol Glucagon (Glucagen Diagnostic Kit) 0 mg IM STAT PRN; Protocol PRN Reason: Hypoglycemia Protocol Heparin Sodium (Porcine) (Heparin) 5,000 units SC Q8 [facility] Last Admin: 01/24/18 06:07 Dose: 5,000 units Dextrose (Dextrose 5% In Water 1000 Ml) 1,000 mls @ 0 mls/hr IV .Q0M PRN; Protocol PRN Reason: Hypoglycemia Protocol Cefotaxime Sodium 2 gm/ Sodium (Chloride) 100 mls @ 100 mls/hr IV Q12H [facility]; Protocol Last Admin: 01/24/18 06:09 Dose: 100 mls/hr Dextrose/Sodium Chloride (Dextrose 5%/0.45% Ns 1000 Ml) 1,000 mls @ 75 mls/hr IV .[id number] [facility] Last Admin: 01/24/18 04:18 Dose: Not Given Insulin Aspart (Novolog) 0 unit SC ACHS [facility]; Protocol Last Admin: 01/24/18 08:13 Dose: 1 unit Levothyroxine Sodium (Synthroid) 200 mcg PO DAILY@0630 [facility] Last Admin: 01/24/18 06:07 Dose: 200 mcg Sodium Bicarbonate (Sodium Bicarbonate Tab) 1,300 mg PO BID [facility] Last Admin: 01/24/18 10:30 Dose: 1,300 mg Thiamine HCl (Vitamin B1 Inj) 100 mg IM DAILY [facility] - Labs Labs: 01/24/18 13:38 01/24/18 13:38 PT 14.4 SECONDS (9.7-12.2) H 01/21/18 12:58 INR 1.3 01/21/18 12:58 APTT 38 SECONDS (21-34) H 01/21/18 12:58 - Constitutional Appears: No Acute Distress - Head Exam Head Exam: ATRAUMATIC, NORMOCEPHALIC - Eye Exam Eye Exam: EOMI, PERRL - Neck Exam Neck Exam: absent: Lymphadenopathy, Thyromegaly - Respiratory Exam Respiratory Exam: NORMAL BREATHING PATTERN. absent: Decreased Breath Sounds, Rhonchi, Wheezes - Cardiovascular Exam Cardiovascular Exam: REGULAR RHYTHM, +S1, +S2. absent: Gallop, Rubs, Murmur - GI/Abdominal Exam GI & Abdominal Exam: Distended, Soft, Normal Bowel Sounds. absent: Tenderness, Mass, Organomegaly - Rectal Exam Rectal Exam: Deferred - Extremities Exam Extremities Exam: absent: Calf Tenderness, Pedal Edema Assessment and Plan (1) Cirrhosis Assessment & Plan: Patient meets criteria for SBP based on high neutrophil count in the ascitic fluid. Continue cefotaxime. WBC count is down to 16,500. GFR has improved slightly to 45. Will order second round of albumin (1.0 g/kg) for today. Status: Acute
[2018-01-24] MEDS ORDERED: Albumin Human 25% (12.5 gm/50 ml) IV SCH (15:00)
--- NOTE | 2018-01-24 15:15 | PN ---
DATE: 01/24/2018 SUBJECTIVE: The patient is feeling better. The patient was somewhat more drowsy when I saw the patient. The patient's daughter was on bedside. The patient was evaluated. A CT of head is ordered. ABG essentially normal. PHYSICAL EXAMINATION: VITAL SIGNS: Blood pressure was 116/59, pulse 85, respiratory rate 20, and temperature 98. LUNGS: Scattered rhonchi. CVS: S1 and S2 regular. ABDOMEN: Soft. CENTRAL NERVOUS SYSTEM: The patient is arousable. ASSESSMENT: 1. Altered mental status, rule out hepatic encephalopathy, pending ammonia level. 2. Ascites. 3. History of multiple strokes. PLAN: CT head, ammonia level. Monitor the patient. Ayan Muro MD
--- NOTE | 2018-01-24 16:10 | RAD ---
Date of service: 01/24/2018 HISTORY: verify right PICC COMPARISON: No prior. FINDINGS: Interval placement right-sided PICC line tip in the SVC. LUNGS: Poor inspiration with low lung volumes, crowded bronchovascular markings and bibasilar atelectasis although there also appear to be concomitant patchy infiltrates throughout mid lower lung calix. PLEURA: No significant pleural effusion identified, no pneumothorax apparent. CARDIOVASCULAR: Heart remains enlarged. OSSEOUS STRUCTURES: No significant abnormalities. VISUALIZED UPPER ABDOMEN: Normal. OTHER FINDINGS: None. IMPRESSION: Interval placement right-sided PICC line as above. Poor inspiration with low lung volumes, crowded bronchovascular markings and bibasilar atelectasis although there also appear to be concomitant patchy infiltrates throughout mid lower lung calix.
--- NOTE | 2018-01-24 18:34 | CP.PCM.PN ---
Subjective - Date & Time of Evaluation Date of Evaluation: 01/24/18 Time of Evaluation: 07:00 - Subjective Subjective: cultures neg remains confused son at bedside iv rx in progress Objective - Vital Signs/Intake and Output Vital Signs (last 24 hours): Temp Pulse Resp BP Pulse Ox 98.1 F 86 20 120/77 100 01/24/18 16:00 01/24/18 16:00 01/24/18 16:00 01/24/18 16:00 01/24/18 16:00 Intake and Output: 01/24/18 01/24/18 06:59 18:59 Intake Total 1270 800 Output Total 575 250 Balance 695 550 - Medications Medications: Current Medications Albumin Human (Albumin Human 25% (12.5 Gm/50 Ml)) 12.5 gm IV Q2H [facility] Stop: 01/25/18 07:31 Dextrose (Dextrose 50% Inj) 0 ml IV STAT PRN; Protocol PRN Reason: Hypoglycemia Protocol Dextrose (Glutose 15) 0 gm PO ONCE PRN; Protocol PRN Reason: Hypoglycemia Protocol Glucagon (Glucagen Diagnostic Kit) 0 mg IM STAT PRN; Protocol PRN Reason: Hypoglycemia Protocol Heparin Sodium (Porcine) (Heparin) 5,000 units SC Q8 [facility] Last Admin: 01/24/18 15:03 Dose: Not Given Dextrose (Dextrose 5% In Water 1000 Ml) 1,000 mls @ 0 mls/hr IV .Q0M PRN; Protocol PRN Reason: Hypoglycemia Protocol Cefotaxime Sodium 2 gm/ Sodium (Chloride) 100 mls @ 100 mls/hr IV Q12H [facility]; Protocol Last Admin: 01/24/18 06:09 Dose: 100 mls/hr Dextrose/Sodium Chloride (Dextrose 5%/0.45% Ns 1000 Ml) 1,000 mls @ 75 mls/hr IV .[id number] [facility] Last Admin: 01/24/18 04:18 Dose: Not Given Insulin Aspart (Novolog) 0 unit SC ACHS [facility]; Protocol Last Admin: 01/24/18 17:34 Dose: 2 unit Levothyroxine Sodium (Synthroid) 200 mcg PO DAILY@0630 [facility] Last Admin: 01/24/18 06:07 Dose: 200 mcg Sodium Bicarbonate (Sodium Bicarbonate Tab) 1,300 mg PO BID [facility] Last Admin: 01/24/18 10:30 Dose: 1,300 mg Thiamine HCl (Vitamin B1 Inj) 100 mg IM DAILY [facility] Last Admin: 01/24/18 11:00 Dose: 100 mg - Labs Labs: 01/24/18 13:38 01/24/18 13:38 PT 14.4 SECONDS (9.7-12.2) H 01/21/18 12:58 INR 1.3 01/21/18 12:58 APTT 38 SECONDS (21-34) H 01/21/18 12:58 - Constitutional Appears: Non-toxic, Chronically Ill - Head Exam Head Exam: NORMOCEPHALIC - Eye Exam Eye Exam: PERRL - ENT Exam ENT Exam: Mucous Membranes Dry - Neck Exam Neck Exam: absent: Lymphadenopathy - Respiratory Exam Respiratory Exam: Decreased Breath Sounds - Cardiovascular Exam Cardiovascular Exam: REGULAR RHYTHM - GI/Abdominal Exam GI & Abdominal Exam: Distended, Soft - Rectal Exam Rectal Exam: Deferred - Exam Exam: NORMAL INSPECTION - Extremities Exam Extremities Exam: Pedal Edema - Back Exam Back Exam: absent: CVA tenderness (L), CVA tenderness (R) Assessment and Plan (1) Cirrhosis Status: Acute (2) Hyperkalemia Status: Acute (3) Leukocytosis Status: Acute (4) SOB (shortness of breath) Status: Acute (5) Ascites Status: Acute (6) Hepatic encephalopathy syndrome Status: Acute (7) Hepatic encephalopathy syndrome Status: Acute
[2018-01-24] MEDS: Albumin Human 25% (12.5 gm/50 ml) IV SCH ×3 (18:54→21:46)
--- NOTE | 2018-01-24 21:47 | CP.PCM.PN ---
Objective - Vital Signs/Intake and Output Vital Signs (last 24 hours): Temp Pulse Resp BP Pulse Ox 98.1 F 88 20 120/77 100 01/24/18 16:00 01/24/18 19:49 01/24/18 16:00 01/24/18 16:00 01/24/18 16:00 Intake and Output: 01/24/18 01/25/18 18:59 06:59 Intake Total 800 Output Total 250 Balance 550 - Medications Medications: Current Medications Albumin Human (Albumin Human 25% (12.5 Gm/50 Ml)) 12.5 gm IV Q2H [facility] Stop: 01/25/18 07:31 Last Admin: 01/24/18 19:18 Dose: 12.5 gm Dextrose (Dextrose 50% Inj) 0 ml IV STAT PRN; Protocol PRN Reason: Hypoglycemia Protocol Dextrose (Glutose 15) 0 gm PO ONCE PRN; Protocol PRN Reason: Hypoglycemia Protocol Glucagon (Glucagen Diagnostic Kit) 0 mg IM STAT PRN; Protocol PRN Reason: Hypoglycemia Protocol Heparin Sodium (Porcine) (Heparin) 5,000 units SC Q8 [facility] Last Admin: 01/24/18 15:03 Dose: Not Given Dextrose (Dextrose 5% In Water 1000 Ml) 1,000 mls @ 0 mls/hr IV .Q0M PRN; Protocol PRN Reason: Hypoglycemia Protocol Cefotaxime Sodium 2 gm/ Sodium (Chloride) 100 mls @ 100 mls/hr IV Q12H [facility]; Protocol Last Admin: 01/24/18 21:02 Dose: 100 mls/hr Dextrose/Sodium Chloride (Dextrose 5%/0.45% Ns 1000 Ml) 1,000 mls @ 75 mls/hr IV .[id number] [facility] Last Admin: 01/24/18 04:18 Dose: Not Given Insulin Aspart (Novolog) 0 unit SC ACHS [facility]; Protocol Last Admin: 01/24/18 17:34 Dose: 2 unit Levothyroxine Sodium (Synthroid) 200 mcg PO DAILY@0630 [facility] Last Admin: 01/24/18 06:07 Dose: 200 mcg Sodium Bicarbonate (Sodium Bicarbonate Tab) 1,300 mg PO BID [facility] Last Admin: 01/24/18 19:07 Dose: 1,300 mg Thiamine HCl (Vitamin B1 Inj) 100 mg IM DAILY [facility] Last Admin: 01/24/18 11:00 Dose: 100 mg - Labs Labs: 01/24/18 13:38 01/24/18 13:38 PT 14.4 SECONDS (9.7-12.2) H 01/21/18 12:58 INR 1.3 01/21/18 12:58 APTT 38 SECONDS (21-34) H 01/21/18 12:58
[2018-01-25] MEDS: Albumin Human 25% (12.5 gm/50 ml) IV SCH ×5 (00:19→08:16)
[2018-01-25] MEDS: Levothyroxine 200 MCG TAB PO SCH (05:50)
--- NOTE | 2018-01-25 06:12 | PN ---
DATE: 01/24/2018 SUBJECTIVE: The patient is more alert. He is still weak and lethargic. He has a CAT scan done which is benign. Chest x-ray is not congested. The patient is afebrile. No distress. His ascites was tapped and he is on antibiotics, and he was seen by Dr. Palma. No fever. No chills. PHYSICAL EXAMINATION: VITAL SIGNS: BP 120/77, pulse 86, respiratory rate 20, and temperature 98.1. LUNGS: Clear. CARDIOVASCULAR SYSTEM: S1 and S2 are regular. ABDOMEN: Soft. ASSESSMENT: 1. Altered mental status , rule out sepsis, toxic metabolic encephalopathy, rule out cerebrovascular accident. 2. History of multiple cerebrovascular accidents. 3. Chronic kidney disease. 4. Dehydration. PLAN: Continue current medications. Monitor the patient. Ayan Muro MD
[2018-01-25 06:57] LABS: BASO # 0.3 K/uL (0.0-0.2); BASO % 1.5 % (0.0-2.0); EOS # 0.1 K/uL (0.0-0.7); EOS % 0.6 % (0.0-4.0); HEMOGLOBIN 8.8 g/dL (12.0-18.0); LYMPH # 0.6 K/uL (1.0-4.3); LYMPH % 3.3 % (20.0-40.0); MEAN CELL VOLUME 99.6 fL (80.0-94.0); MEAN CORPUSCULAR HEMOGLOBIN 32.5 pg (27.0-31.0); MEAN CORPUSCULAR HGB CONC 32.6 g/dL (33.0-37.0); MEAN PLATELET VOLUME 8.9 fL (7.2-11.7); NEUT # 17.3 K/uL (1.8-7.0); NEUT % 89.6 % (50.0-75.0); PLATELET COUNT 166 K/uL (130-400); RBC 2.71 Mil/uL (4.40-5.90); RED CELL DISTRIBUTION WIDTH 15.6 % (11.5-14.5); WHITE BLOOD COUNT 19.3 K/uL (4.8-10.8)
[2018-01-25 07:09] LABS: CALCIUM 8.9 mg/dl (8.6-10.4)
[2018-01-25] MEDS: (Novolog) Insulin Aspart, Recombinant 100 u/ml 10 ml vial SC SCH ×4 (08:25→21:40)
[2018-01-25 08:45] LABS: BANDS 1 % (0-2); EOSINOPHIL 1 % (0-4); TOTAL CELLS COUNTED 100
[2018-01-25 08:46] LABS: LYMPHOCYTE 3 % (20-40); MONOCYTE 5 % (0-10); NEUTROPHIL 90 % (50-75)
[2018-01-25 08:47] LABS: PLATELET ESTIMATE NORMAL (NORMAL)
[2018-01-25 08:48] LABS: ANISOCYTOSIS SLIGHT; LARGE PLATELETS PRESENT
[2018-01-25 08:49] LABS: HYPOCHROMIC SLIGHT; OVALOCYTES SLIGHT; POLYCHROMIC SLIGHT
[2018-01-25] MEDS: Dextrose 5%/0.45% NS 1,000 ML IV SCH (10:09)
[2018-01-25] MEDS: Thiamine 100 mg/ml Inj IM SCH (10:12)
--- NOTE | 2018-01-25 10:15 | CP.PCM.PN ---
Subjective - Date & Time of Evaluation Date of Evaluation: 01/25/18 Time of Evaluation: 10:13 - Subjective Subjective: Nephrology Consultation Note Assessment: stable Acute Kidney Injury (N17.9) likely due to pre-renal with hyperkalemia likely contributed by triple RAAS blockers NAGMA anemia with sepsis ? SBP cirrhosis with ascites Atrial Fibrillation, Dementia, HTN, Hypercholesterolemia, Hyperlipidemia, Hypothyroidism, DM AMS Plan No acute need for renal replacement therapy at this time. Maintain hemodynamics stable. Avoid hypotension. hold ACEI/ARB/aldactone due to recent GILDARDO. avoid acei +arb combination in future as associated with increased risk of GILDARDO/hyperkalemia and hypotension hold norvasc for now Monitor Input/Output, daily weights and renal function with basic metabolic panel s/p IV albumin 125 gm lowered IVF to 40 ml/hr started sodium bicarb pike catheterization due to his AMS GI recs appreciated Dose meds/antibiotics for reduced GFR. Avoid fleets enema/magnesium based laxatives. Avoid nephrotoxins/NSAIDs/ iodinated contrast (unless needed emergently) Glycemic control Further work up for as per primary team Thanks for allowing me to participate in care of your patient. Will follow patient with you. Please call if any Qs. had d/w team and son bedside Dr Adriano Del Rosario Office: [phone] CC: unable to obtain reason for consult: GILDARDO HPI: Pit is a 82 y/o M with hx of Atrial Fibrillation, Dementia, HTN, Hypercholesterolemia, Hyperlipidemia, Hypothyroidism, DM who recently was di agnosed and admitted to hospital with UTI with cirrhosis with ascites with neg work up as ? due to steatohepatitis was brought by family as he was very lethargic yesterday. pt is admitted with sepsis ? SBP and GILDARDO with hyperkalemia. pt was on lasix with aldacone, ramipril and losartan. son bedside and provided hx initially. ROS: Noted events overnight. Patients unable to provide hx pt more awake, able to eat and say his name remains confused Physical Examination: General Appearance: in no acute respiratory distress, better appearing, awake Vitals reviewed and noted as below Head; Atraumatic, normocephalic ENT: no ulcers no thrush. Tongue is midline/very dry. Oropharynx: no rash or ulcers. left auricle superficial abrasion + EYES: Pupils are equal, round, constricted and reactive to light accommodation. Eye muscles and extraocular movement intact. Sclera is anicteric. Neck; supple no lymphadenopathy, no thyromegaly or bruit Lungs: Normal respiratory rate/effort. Breath sounds bilateral with basal crackle Heart: Normal rate. s1s2 normal. No rub or gallop. Extremities: no edema. No varicose veins Neurological: Patient is not oriented to person, place and time and lethargic Skin: Warm and dry. Normal turgor. No rash. Palpitation: Normal elasticity for age. Abdomen: Abdomen is soft. Bowel sounds +. There is no abdominal tenderness, no guarding/rigidity no organomegaly, ascitic Psych: unable MSK: no joint tenderness or swelling. Digits and nails normal, no deformity : kidney or bladder not palpable however limited exam Labs/imaging reviewed. Past medical history, past surgical history, family history, social history, allergy reviewed and noted as below Family hx: no hx of CKD. Rest non-contributory work up: UA 2+ blood , urine Na <5 renal imaging left renal cyst and small stone normal LVEF on echo Objective - Vital Signs/Intake and Output Vital Signs (last 24 hours): Temp Pulse Resp BP Pulse Ox 98.1 F 85 20 130/72 20 L 01/25/18 08:05 01/25/18 08:08 01/25/18 08:05 01/25/18 08:05 01/25/18 08:05 Intake and Output: 01/25/18 01/25/18 06:59 18:59 Intake Total 800 Output Total 600 Balance 200 - Medications Medications: Current Medications Dextrose (Dextrose 50% Inj) 0 ml IV STAT PRN; Protocol PRN Reason: Hypoglycemia Protocol Dextrose (Glutose 15) 0 gm PO ONCE PRN; Protocol PRN Reason: Hypoglycemia Protocol Glucagon (Glucagen Diagnostic Kit) 0 mg IM STAT PRN; Protocol PRN Reason: Hypoglycemia Protocol Heparin Sodium (Porcine) (Heparin) 5,000 units SC Q8 [facility] Last Admin: 01/25/18 05:50 Dose: 5,000 units Dextrose (Dextrose 5% In Water 1000 Ml) 1,000 mls @ 0 mls/hr IV .Q0M PRN; Protocol PRN Reason: Hypoglycemia Protocol Cefotaxime Sodium 2 gm/ Sodium (Chloride) 100 mls @ 100 mls/hr IV Q12H [facility]; Protocol Last Admin: 01/25/18 06:07 Dose: 100 mls/hr Dextrose/Sodium Chloride (Dextrose 5%/0.45% Ns 1000 Ml) 1,000 mls @ 40 mls/hr IV .Q24H [facility] Last Admin: 01/25/18 10:09 Dose: 40 mls/hr Insulin Aspart (Novolog) 0 unit SC ACHS [facility]; Protocol Last Admin: 01/25/18 08:25 Dose: 2 unit Levothyroxine Sodium (Synthroid) 200 mcg PO DAILY@0630 [facility] Last Admin: 01/25/18 05:50 Dose: 200 mcg Sodium Bicarbonate (Sodium Bicarbonate Tab) 1,300 mg PO BID [facility] Last Admin: 01/25/18 10:12 Dose: 1,300 mg Thiamine HCl (Vitamin B1 Inj) 100 mg IM DAILY [facility] Last Admin: 01/25/18 10:12 Dose: 100 mg - Labs Labs: 01/25/18 06:54 01/25/18 06:54 PT 14.4 SECONDS (9.7-12.2) H 01/21/18 12:58 INR 1.3 01/21/18 12:58 APTT 38 SECONDS (21-34) H 01/21/18 12:58
--- NOTE | 2018-01-25 11:53 | CP.PCM.PN ---
Subjective - Date & Time of Evaluation Date of Evaluation: 01/25/18 Time of Evaluation: 11:50 - Subjective Subjective: Patient is slightly more alert today. Family reports that he responds at times to their questions, admits having pain, but is unable to localize it. Objective - Vital Signs/Intake and Output Vital Signs (last 24 hours): Temp Pulse Resp BP Pulse Ox 98.1 F 85 20 130/72 20 L 01/25/18 08:05 01/25/18 08:08 01/25/18 08:05 01/25/18 08:05 01/25/18 08:05 Intake and Output: 01/25/18 01/25/18 06:59 18:59 Intake Total 800 Output Total 600 Balance 200 - Medications Medications: Current Medications Dextrose (Dextrose 50% Inj) 0 ml IV STAT PRN; Protocol PRN Reason: Hypoglycemia Protocol Dextrose (Glutose 15) 0 gm PO ONCE PRN; Protocol PRN Reason: Hypoglycemia Protocol Glucagon (Glucagen Diagnostic Kit) 0 mg IM STAT PRN; Protocol PRN Reason: Hypoglycemia Protocol Heparin Sodium (Porcine) (Heparin) 5,000 units SC Q8 REPLACED BY [facility] Last Admin: 01/25/18 05:50 Dose: 5,000 units Dextrose (Dextrose 5% In Water 1000 Ml) 1,000 mls @ 0 mls/hr IV .Q0M PRN; Protocol PRN Reason: Hypoglycemia Protocol Cefotaxime Sodium 2 gm/ Sodium (Chloride) 100 mls @ 100 mls/hr IV Q12H [facility]; Protocol Last Admin: 01/25/18 06:07 Dose: 100 mls/hr Dextrose/Sodium Chloride (Dextrose 5%/0.45% Ns 1000 Ml) 1,000 mls @ 40 mls/hr IV .Q24H REPLACED BY [facility] Last Admin: 01/25/18 10:09 Dose: 40 mls/hr Insulin Aspart (Novolog) 0 unit SC ACHS [facility]; Protocol Last Admin: 01/25/18 08:25 Dose: 2 unit Levothyroxine Sodium (Synthroid) 200 mcg PO DAILY@0630 REPLACED BY [facility] Last Admin: 01/25/18 05:50 Dose: 200 mcg Sodium Bicarbonate (Sodium Bicarbonate Tab) 1,300 mg PO BID REPLACED BY [facility] Last Admin: 01/25/18 10:12 Dose: 1,300 mg Thiamine HCl (Vitamin B1 Inj) 100 mg IM DAILY REPLACED BY [facility] Last Admin: 01/25/18 10:12 Dose: 100 mg - Labs Labs: 01/25/18 06:54 01/25/18 06:54 PT 14.4 SECONDS (9.7-12.2) H 01/21/18 12:58 INR 1.3 01/21/18 12:58 APTT 38 SECONDS (21-34) H 01/21/18 12:58 - Constitutional Appears: No Acute Distress - Head Exam Head Exam: ATRAUMATIC, NORMOCEPHALIC - Neck Exam Neck Exam: absent: Lymphadenopathy, Thyromegaly - Respiratory Exam Respiratory Exam: NORMAL BREATHING PATTERN. absent: Rales, Rhonchi, Wheezes - Cardiovascular Exam Cardiovascular Exam: REGULAR RHYTHM, +S1, +S2. absent: Gallop, Rubs, Murmur - GI/Abdominal Exam GI & Abdominal Exam: Distended, Soft, Normal Bowel Sounds. absent: Tenderness, Mass, Organomegaly - Rectal Exam Rectal Exam: Deferred - Extremities Exam Extremities Exam: absent: Calf Tenderness, Pedal Edema Assessment and Plan (1) Cirrhosis Assessment & Plan: Patient is slightly more alert today. Leukocytosis persists, 19.3 today. The renal function is minimally imporved, BUN 65, Cr 1.4, eGFR 48. Will repeat paracentesis after 5 days of cefotaxime to check cell count; will discontinue antibiotics if PMN count is <250. Status: Acute
[2018-01-25] MEDS ORDERED: Vitamins A & D Oint UD Foilpak TOP PRN (12:50)
--- NOTE | 2018-01-25 21:27 | CP.PCM.PN ---
Objective - Vital Signs/Intake and Output Vital Signs (last 24 hours): Temp Pulse Resp BP Pulse Ox 100.7 F H 94 H 22 104/63 95 01/25/18 15:55 01/25/18 15:55 01/25/18 15:55 01/25/18 15:55 01/25/18 15:55 Intake and Output: 01/25/18 01/26/18 18:59 06:59 Intake Total 240 Output Total 350 Balance -110 - Medications Medications: Current Medications Acetaminophen (Tylenol 325mg Tab) 650 mg PO Q6 PRN PRN Reason: Pain, moderate (4-7) Last Admin: 01/25/18 14:43 Dose: 650 mg Dextrose (Dextrose 50% Inj) 0 ml IV STAT PRN; Protocol PRN Reason: Hypoglycemia Protocol Dextrose (Glutose 15) 0 gm PO ONCE PRN; Protocol PRN Reason: Hypoglycemia Protocol Glucagon (Glucagen Diagnostic Kit) 0 mg IM STAT PRN; Protocol PRN Reason: Hypoglycemia Protocol Heparin Sodium (Porcine) (Heparin) 5,000 units SC Q8 [facility] Last Admin: 01/25/18 14:16 Dose: 5,000 units Dextrose (Dextrose 5% In Water 1000 Ml) 1,000 mls @ 0 mls/hr IV .Q0M PRN; Protocol PRN Reason: Hypoglycemia Protocol Cefotaxime Sodium 2 gm/ Sodium (Chloride) 100 mls @ 100 mls/hr IV Q12H [facility]; Protocol Last Admin: 01/25/18 20:21 Dose: 100 mls/hr Dextrose/Sodium Chloride (Dextrose 5%/0.45% Ns 1000 Ml) 1,000 mls @ 40 mls/hr IV .Q24H [facility] Last Admin: 01/25/18 10:09 Dose: 40 mls/hr Insulin Aspart (Novolog) 0 unit SC ACHS [facility]; Protocol Last Admin: 01/25/18 17:56 Dose: 3 unit Levothyroxine Sodium (Synthroid) 200 mcg PO DAILY@0630 [facility] Last Admin: 01/25/18 05:50 Dose: 200 mcg Sodium Bicarbonate (Sodium Bicarbonate Tab) 1,300 mg PO BID [facility] Last Admin: 01/25/18 17:56 Dose: 1,300 mg Thiamine HCl (Vitamin B1 Inj) 100 mg IM DAILY [facility] Last Admin: 01/25/18 10:12 Dose: 100 mg Vitamin A (Vitamin A & D Oint Ud Foilpak) 1 ea TOP BID PRN PRN Reason: Dry mouth Last Admin: 01/25/18 14:43 Dose: 1 ea - Labs Labs: 01/25/18 06:54 01/25/18 06:54 PT 14.4 SECONDS (9.7-12.2) H 01/21/18 12:58 INR 1.3 01/21/18 12:58 APTT 38 SECONDS (21-34) H 01/21/18 12:58
[2018-01-26] MEDS: Levothyroxine 200 MCG TAB PO SCH (06:09)
[2018-01-26] MEDS: Dextrose 5%/0.45% NS 1,000 ML IV SCH (09:24)
[2018-01-26] MEDS: Thiamine 100 mg/ml Inj IM SCH (09:24)
[2018-01-26] MEDS: (Novolog) Insulin Aspart, Recombinant 100 u/ml 10 ml vial SC SCH ×4 (09:26→21:54)
--- NOTE | 2018-01-26 11:54 | CP.PCM.PN ---
Subjective - Date & Time of Evaluation Date of Evaluation: 01/26/18 Time of Evaluation: 11:51 - Subjective Subjective: Nephrology Consultation Note Assessment: critical Acute Kidney Injury (N17.9) likely due to pre-renal with hyperkalemia likely contributed by triple RAAS blockers NAGMA anemia with sepsis ? SBP cirrhosis with ascites Atrial Fibrillation, Dementia, HTN, Hypercholesterolemia, Hyperlipidemia, Hypothyroidism, DM AMS Plan No acute need for renal replacement therapy at this time. Maintain hemodynamics stable. Avoid hypotension. hold ACEI/ARB/aldactone due to recent GILDARDO. avoid acei +arb combination in future as associated with increased risk of GILDARDO/hyperkalemia and hypotension hold norvasc for now Monitor Input/Output, daily weights and renal function with basic metabolic panel s/p IV albumin 125 gm IVF to 40 ml/hr started sodium bicarb pike catheterization due to his AMS GI recs appreciated Dose meds/antibiotics for reduced GFR. Avoid fleets enema/magnesium based laxatives. Avoid nephrotoxins/NSAIDs/ iodinated contrast (unless needed emergently) Glycemic control Further work up for as per primary team poor prognosis. pt now DNR/DNI. Thanks for allowing me to participate in care of your patient. Will follow patient with you. Please call if any Qs. had d/w team and family bedside Dr Adriano Del Rosario Office: [phone] CC: unable to obtain reason for consult: GILDARDO HPI: Pit is a 82 y/o M with hx of Atrial Fibrillation, Dementia, HTN, Hypercholesterolemia, Hyperlipidemia, Hypothyroidism, DM who recently was diagnosed and admitted to hospital with UTI with cirrhosis with ascites with neg work up as ? due to steatohepatitis was brought by family as he was very lethargic yesterday. pt is admitted with sepsis ? SBP and GILDARDO with hyperkalemia. pt was on lasix with aldacone, ramipril and losartan. son bedside and provided hx initially. ROS: Noted events overnight. Patients unable to provide hx pt more lethargic today Physical Examination: General Appearance: in no acute respiratory distress, ill appearing, lethargic Vitals reviewed and noted as below Head; Atraumatic, normocephalic ENT: no ulcers no thrush. Tongue is midline/very dry. Oropharynx: no rash or ulcers. left auricle superficial abrasion + Neck; supple no lymphadenopathy, no thyromegaly or bruit Lungs: Normal respiratory rate/effort. Breath sounds bilateral with basal crackle Heart: Normal rate. s1s2 normal. No rub or gallop. Extremities: no edema. No varicose veins Neurological: Patient is lethargic and minimally responsive today Skin: Warm and dry. Normal turgor. No rash. Palpitation: Normal elasticity for age. Abdomen: Abdomen is soft. Bowel sounds +. There is no abdominal tenderness, no g uarding/rigidity no organomegaly, ascitic Psych: unable MSK: no joint tenderness or swelling. Digits and nails normal, no deformity : kidney or bladder not palpable however limited exam Labs/imaging reviewed. Past medical history, past surgical history, family history, social history, allergy reviewed and noted as below Family hx: no hx of CKD. Rest non-contributory work up: UA 2+ blood , urine Na <5 renal imaging left renal cyst and small stone normal LVEF on echo Objective - Vital Signs/Intake and Output Vital Signs (last 24 hours): Temp Pulse Resp BP Pulse Ox 98 F 84 23 100/64 99 01/26/18 07:52 01/26/18 08:27 01/26/18 07:52 01/26/18 07:52 01/26/18 07:52 Intake and Output: 01/26/18 01/26/18 06:59 18:59 Intake Total 880 Output Total 251 Balance 629 - Medications Medications: Current Medications Acetaminophen (Tylenol 325mg Tab) 650 mg PO Q6 PRN PRN Reason: Pain, moderate (4-7) Last Admin: 01/25/18 14:43 Dose: 650 mg Dextrose (Dextrose 50% Inj) 0 ml IV STAT PRN; Protocol PRN Reason: Hypoglycemia Protocol Dextrose (Glutose 15) 0 gm PO ONCE PRN; Protocol PRN Reason: Hypoglycemia Protocol Glucagon (Glucagen Diagnostic Kit) 0 mg IM STAT PRN; Protocol PRN Reason: Hypoglycemia Protocol Heparin Sodium (Porcine) (Heparin) 5,000 units SC Q8 [facility] Last Admin: 01/26/18 06:09 Dose: 5,000 units Dextrose (Dextrose 5% In Water 1000 Ml) 1,000 mls @ 0 mls/hr IV .Q0M PRN; Protocol PRN Reason: Hypoglycemia Protocol Cefotaxime Sodium 2 gm/ Sodium (Chloride) 100 mls @ 100 mls/hr IV Q12H [facility]; [facility] Last Admin: 01/26/18 06:10 Dose: 100 mls/hr Dextrose/Sodium Chloride (Dextrose 5%/0.45% Ns 1000 Ml) 1,000 mls @ 40 mls/hr IV .Q24H [facility] Last Admin: 01/26/18 09:24 Dose: 40 mls/hr Insulin Aspart (Novolog) 0 unit SC ACHS [facility]; Protocol Last Admin: 01/26/18 09:26 Dose: 2 unit Levothyroxine Sodium (Synthroid) 200 mcg PO DAILY@0630 ON LICENSE OF [facility] Last Admin: 01/26/18 06:09 Dose: 200 mcg Sodium Bicarbonate (Sodium Bicarbonate Tab) 1,300 mg PO BID [facility] OF [facility] Last Admin: 01/26/18 09:29 Dose: 1,300 mg Thiamine HCl (Vitamin B1 Tab) 100 mg PO DAILY ON LICENSE OF [facility] Vitamin A (Vitamin A & D Oint Ud Foilpak) 1 ea TOP BID PRN PRN Reason: Dry mouth Last Admin: 01/25/18 14:43 Dose: 1 ea - Labs Labs: 01/25/18 06:54 01/25/18 06:54 PT 14.4 SECONDS (9.7-12.2) H 01/21/18 12:58 INR 1.3 01/21/18 12:58 APTT 38 SECONDS (21-34) H 01/21/18 12:58
[2018-01-26 12:09] LABS: EOS % 0.1 % (0.0-4.0); HEMOGLOBIN 9.5 g/dL (12.0-18.0); LYMPH # 0.6 K/uL (1.0-4.3); LYMPH % 2.1 % (20.0-40.0); MEAN CELL VOLUME 99.9 fL (80.0-94.0); MEAN CORPUSCULAR HEMOGLOBIN 32.7 pg (27.0-31.0); MEAN CORPUSCULAR HGB CONC 32.8 g/dL (33.0-37.0); MEAN PLATELET VOLUME 9.7 fL (7.2-11.7); MONO # 1.2 K/uL (0.0-0.8); MONO % 4.2 % (0.0-10.0); NEUT # 26.8 K/uL (1.8-7.0); NEUT % 93.6 % (50.0-75.0); PLATELET COUNT 168 K/uL (130-400); RED CELL DISTRIBUTION WIDTH 15.8 % (11.5-14.5); WHITE BLOOD COUNT 28.6 K/uL (4.8-10.8)
[2018-01-26 12:30] LABS: ALB/GLOB RATIO 0.8 (1.0-2.1); ALBUMIN 2.4 g/dL (3.5-5.0); CALCIUM 8.7 mg/dl (8.6-10.4)
[2018-01-26 12:58] LABS: BANDS 2 % (0-2); LYMPHOCYTE 6 % (20-40); MONOCYTE 3 % (0-10); NEUTROPHIL 89 % (50-75); TOTAL CELLS COUNTED 100
--- NOTE | 2018-01-26 12:58 | CP.PCM.PN ---
Subjective - Date & Time of Evaluation Date of Evaluation: 01/26/18 Time of Evaluation: 12:55 - Subjective Subjective: Patient had an episode of rapid heart rate to 133, hypotension BP 87/61,and hypoxia overnight; he is now on oxygen by non-rebreather mask. He is lethargic, but opens his eyes to noxiuus stimuli. Objective - Vital Signs/Intake and Output Vital Signs (last 24 hours): Temp Pulse Resp BP Pulse Ox 98 F 84 23 100/64 99 01/26/18 07:52 01/26/18 08:27 01/26/18 07:52 01/26/18 07:52 01/26/18 07:52 Intake and Output: 01/26/18 01/26/18 06:59 18:59 Intake Total 880 Output Total 251 Balance 629 - Medications Medications: Current Medications Acetaminophen (Tylenol 325mg Tab) 650 mg PO Q6 PRN PRN Reason: Pain, moderate (4-7) Last Admin: 01/25/18 14:43 Dose: 650 mg Dextrose (Dextrose 50% Inj) 0 ml IV STAT PRN; Protocol PRN Reason: Hypoglycemia Protocol Dextrose (Glutose 15) 0 gm PO ONCE PRN; Protocol PRN Reason: Hypoglycemia Protocol Glucagon (Glucagen Diagnostic Kit) 0 mg IM STAT PRN; Protocol PRN Reason: Hypoglycemia Protocol Heparin Sodium (Porcine) (Heparin) 5,000 units SC Q8 [facility] Last Admin: 01/26/18 06:09 Dose: 5,000 units Dextrose (Dextrose 5% In Water 1000 Ml) 1,000 mls @ 0 mls/hr IV .Q0M PRN; Protocol PRN Reason: Hypoglycemia Protocol Dextrose/Sodium Chloride (Dextrose 5%/0.45% Ns 1000 Ml) 1,000 mls @ 40 mls/hr IV .Q24H [facility] Last Admin: 01/26/18 09:24 Dose: 40 mls/hr Insulin Aspart (Novolog) 0 unit SC ACHS [facility]; Protocol Last Admin: 01/26/18 09:26 Dose: 2 unit Levothyroxine Sodium (Synthroid) 200 mcg PO DAILY@0630 [facility] Last Admin: 01/26/18 06:09 Dose: 200 mcg Sodium Bicarbonate (Sodium Bicarbonate Tab) 1,300 mg PO BID [facility] Last Admin: 01/26/18 09:29 Dose: 1,300 mg Thiamine HCl (Vitamin B1 Tab) 100 mg PO DAILY [facility] Vitamin A (Vitamin A & D Oint Ud Foilpak) 1 ea TOP BID PRN PRN Reason: Dry mouth Last Admin: 01/25/18 14:43 Dose: 1 ea - Labs Labs: 01/26/18 12:00 01/26/18 12:00 PT 14.4 SECONDS (9.7-12.2) H 01/21/18 12:58 INR 1.3 01/21/18 12:58 APTT 38 SECONDS (21-34) H 01/21/18 12:58 - Constitutional Appears: Other - Neck Exam Neck Exam: absent: Lymphadenopathy, Thyromegaly - Respiratory Exam Respiratory Exam: NORMAL BREATHING PATTERN. absent: Rales, Rhonchi, Wheezes - Cardiovascular Exam Cardiovascular Exam: REGULAR RHYTHM, +S1, +S2. absent: Rubs, Murmur - GI/Abdominal Exam GI & Abdominal Exam: Distended, Soft, Normal Bowel Sounds. absent: Tenderness, Mass, Organomegaly - Rectal Exam Rectal Exam: Deferred - Extremities Exam Extremities Exam: Pedal Edema Additional comments: Left>right Assessment and Plan (1) Cirrhosis Assessment & Plan: Leukocytosis and renal insufficiency persist. Will check CXR and urine. Prognosis is poor. Status: Acute
[2018-01-26 12:59] LABS: ANISOCYTOSIS SLIGHT; HYPOCHROMIC SLIGHT; OVALOCYTES SLIGHT; PLATELET ESTIMATE NORMAL (NORMAL); POIKILOCYTOSIS SLIGHT; TEARDROP CELLS SLIGHT
[2018-01-26 13:00] LABS: ACANTHOCYTES SLIGHT; BURR CELLS SLIGHT
--- NOTE | 2018-01-26 14:57 | CP.PCM.PN ---
Subjective - Date & Time of Evaluation Date of Evaluation: 01/26/18 Time of Evaluation: 07:00 - Subjective Subjective: unresponsive events noted Patient had an episode of rapid heart rate to 133, hypotension BP 87/61,and hypoxia overnight; he is now on oxygen by non-rebreather mask. Objective - Vital Signs/Intake and Output Vital Signs (last 24 hours): Temp Pulse Resp BP Pulse Ox 98.4 F 98 H 24 101/61 98 01/26/18 13:01 01/26/18 13:01 01/26/18 13:01 01/26/18 13:01 01/26/18 13:01 Intake and Output: 01/26/18 01/26/18 06:59 18:59 Intake Total 880 370 Output Total 251 200 Balance 629 170 - Medications Medications: Current Medications Acetaminophen (Tylenol 325mg Tab) 650 mg PO Q6 PRN PRN Reason: Pain, moderate (4-7) Last Admin: 01/25/18 14:43 Dose: 650 mg Dextrose (Dextrose 50% Inj) 0 ml IV STAT PRN; Protocol PRN Reason: Hypoglycemia Protocol Dextrose (Glutose 15) 0 gm PO ONCE PRN; Protocol PRN Reason: Hypoglycemia Protocol Glucagon (Glucagen Diagnostic Kit) 0 mg IM STAT PRN; Protocol PRN Reason: Hypoglycemia Protocol Heparin Sodium (Porcine) (Heparin) 5,000 units SC Q8 [facility] Last Admin: 01/26/18 13:16 Dose: 5,000 units Dextrose (Dextrose 5% In Water 1000 Ml) 1,000 mls @ 0 mls/hr IV .Q0M PRN; Protocol PRN Reason: Hypoglycemia Protocol Dextrose/Sodium Chloride (Dextrose 5%/0.45% Ns 1000 Ml) 1,000 mls @ 40 mls/hr IV .Q24H [facility] Last Admin: 01/26/18 09:24 Dose: 40 mls/hr Meropenem 500 mg/ Sodium (Chloride) 100 mls @ 100 mls/hr IVPB Q6 [facility] Potassium Chloride (Potassium Chloride 20 Meq/100 Ml) 20 meq in 100 mls @ 50 mls/hr IVPB Q3H [facility] Stop: 01/26/18 19:29 Last Admin: 01/26/18 14:39 Dose: 50 mls/hr Insulin Aspart (Novolog) 0 unit SC ACHS [facility]; Protocol Last Admin: 01/26/18 13:15 Dose: 2 unit Levothyroxine Sodium (Synthroid) 200 mcg PO DAILY@0630 [facility] Last Admin: 01/26/18 06:09 Dose: 200 mcg Sodium Bicarbonate (Sodium Bicarbonate Tab) 1,300 mg PO BID [facility] Last Admin: 01/26/18 09:29 Dose: 1,300 mg Thiamine HCl (Vitamin B1 Tab) 100 mg PO DAILY [facility] Vitamin A (Vitamin A & D Oint Ud Foilpak) 1 ea TOP BID PRN PRN Reason: Dry mouth Last Admin: 01/25/18 14:43 Dose: 1 ea - Labs Labs: 01/26/18 12:00 01/26/18 12:00 PT 14.4 SECONDS (9.7-12.2) H 01/21/18 12:58 INR 1.3 01/21/18 12:58 APTT 38 SECONDS (21-34) H 01/21/18 12:58 - Constitutional Appears: Confused, Chronically Ill - Head Exam Head Exam: NORMOCEPHALIC - Eye Exam Eye Exam: absent: Scleral icterus - ENT Exam ENT Exam: Mucous Membranes Dry - Neck Exam Neck Exam: absent: Lymphadenopathy - Respiratory Exam Respiratory Exam: Decreased Breath Sounds - Cardiovascular Exam Cardiovascular Exam: REGULAR RHYTHM - GI/Abdominal Exam GI & Abdominal Exam: Distended, Soft Assessment and Plan (1) Cirrhosis Status: Acute (2) Hyperkalemia Status: Acute (3) Leukocytosis Status: Acute (4) SOB (shortness of breath) Status: Acute (5) Ascites Status: Acute (6) Hepatic encephalopathy syndrome Status: Acute (7) Hepatic encephalopathy syndrome Status: Acute - Assessment and Plan (Free Text) Assessment: sepsis/ SBP r/o pneumonia Cirrhosis YANG IV Merrem added poor prognosis
--- NOTE | 2018-01-26 17:22 | RAD ---
Date of service: 01/26/2018 HISTORY: Hypoxia COMPARISON: Comparison chest 01/24/2018 FINDINGS: Right-sided PICC line again noted. LUNGS: Multifocal patchy infiltrate changes seen in the right upper right lower and left lower lobes. PLEURA: No significant pleural effusion identified, no pneumothorax apparent. CARDIOVASCULAR: Cardiomegaly. OSSEOUS STRUCTURES: No significant abnormalities. VISUALIZED UPPER ABDOMEN: Normal. OTHER FINDINGS: None. IMPRESSION: Multifocal patchy bilateral infiltrates.
[2018-01-26] MEDS: Meropenem 500 MG in Sodium Chloride 0.9% 100 ML IVPB SCH (19:00)
--- NOTE | 2018-01-26 20:34 | PN ---
DATE: 01/25/2018 SUBJECTIVE: The patient Luz is weak, drowsy and lethargic. The patient's general condition is poor. His white cell count is going up. The patient has been seen by ID and the patient is on multiple medications. I spoke to patient's daughter, who is an RN about patient's general condition, which is poor. He has multiple medical problems and his baseline health condition is not good and the patient is deteriorating. The patient is on antibiotics status post paracentesis and his mental status is unimproved. PHYSICAL EXAMINATION: VITAL SIGNS: BP is 104/63, pulse 94, respiratory rate 22, temperature 100.7. LUNGS: Bilaterally clear. No rale. No rhonchi. CVS: S1 and S2, regular. No heave. No thrill. ABDOMEN: Soft. There is ascites present. MANAGER CHANGE: The patient withdraws from pain. ASSESSMENT: 1. Ascites, status post paracentesis, elevated leukocyte count, could be spontaneous bacterial peritonitis. 2. Chronic kidney disease. 3. Hypertension. 4. Altered mental status, which is most likely due to toxic and metabolic encephalopathy. It is unlikely to be cerebrovascular accident. It is unlikely to be hepatic encephalopathy. PLAN: Continue to monitor the patient. I spoke to patient's daughter about possible DNR and DNI. Ayan Muro MD
--- NOTE | 2018-01-26 20:53 | CP.PCM.PN ---
Objective - Vital Signs/Intake and Output Vital Signs (last 24 hours): Temp Pulse Resp BP Pulse Ox 97 F L 90 20 97/63 L 97 01/26/18 16:00 01/26/18 16:00 01/26/18 16:00 01/26/18 16:00 01/26/18 16:00 Intake and Output: 01/26/1818 18:59 06:59 Intake Total 370 Output Total 200 Balance 170 - Medications Medications: Current Medications Acetaminophen (Tylenol 325mg Tab) 650 mg PO Q6 PRN PRN Reason: Pain, moderate (4-7) Last Admin: 01/25/18 14:43 Dose: 650 mg Dextrose (Dextrose 50% Inj) 0 ml IV STAT PRN; Protocol PRN Reason: Hypoglycemia Protocol Dextrose (Glutose 15) 0 gm PO ONCE PRN; Protocol PRN Reason: Hypoglycemia Protocol Glucagon (Glucagen Diagnostic Kit) 0 mg IM STAT PRN; Protocol PRN Reason: Hypoglycemia Protocol Heparin Sodium (Porcine) (Heparin) 5,000 units SC Q8 [facility] Last Admin: 01/26/18 13:16 Dose: 5,000 units Dextrose (Dextrose 5% In Water 1000 Ml) 1,000 mls @ 0 mls/hr IV .Q0M PRN; Protocol PRN Reason: Hypoglycemia Protocol Dextrose/Sodium Chloride (Dextrose 5%/0.45% Ns 1000 Ml) 1,000 mls @ 40 mls/hr IV .Q24H [facility] Last Admin: 01/26/18 09:24 Dose: 40 mls/hr Meropenem 500 mg/ Sodium (Chloride) 100 mls @ 100 mls/hr IVPB Q6 [facility] Last Admin: 01/26/18 19:00 Dose: 100 mls/hr Insulin Aspart (Novolog) 0 unit SC ACHS [facility]; Protocol Last Admin: 01/26/18 18:27 Dose: Not Given Levothyroxine Sodium (Synthroid) 200 mcg PO DAILY@0630 [facility] Last Admin: 01/26/18 06:09 Dose: 200 mcg Sodium Bicarbonate (Sodium Bicarbonate Tab) 1,300 mg PO BID [facility] Last Admin: 01/26/18 18:23 Dose: 1,300 mg Thiamine HCl (Vitamin B1 Tab) 100 mg PO DAILY [facility] Vitamin A (Vitamin A & D Oint Ud Foilpak) 1 ea TOP BID PRN PRN Reason: Dry mouth Last Admin: 01/25/18 14:43 Dose: 1 ea - Labs Labs: 01/26/18 12:00 01/26/18 12:00 PT 14.4 SECONDS (9.7-12.2) H 01/21/18 12:58 INR 1.3 01/21/18 12:58 APTT 38 SECONDS (21-34) H 01/21/18 12:58
[2018-01-27] MEDS: Meropenem 500 MG in Sodium Chloride 0.9% 100 ML IVPB SCH ×4 (00:30→17:58)
[2018-01-27 05:36] LABS: GRANULAR CAST 3 /lpf (0-1); SQUAMOUS EPITHIAL < 1 /hpf (0-5); URINE BACTERIA RARE (<OCC); URINE BILIRUBIN NEGATIVE (NEGATIVE); URINE BLOOD 3+ (NEGATIVE); URINE CLARITY Hazy (Clear); URINE COLOR Amber (YELLOW); URINE GLUCOSE (UA) NORMAL (Normal); URINE LEUKOCYTE ESTERASE 2+ Leu/uL (Negative); URINE PROTEIN 1+ mg/dL (NEGATIVE); URINE UROBILINOGEN NORMAL mg/dL (0.2-1.0)
[2018-01-27] MEDS: Levothyroxine 200 MCG TAB PO SCH (05:44)
[2018-01-27] MEDS: (Novolog) Insulin Aspart, Recombinant 100 u/ml 10 ml vial SC SCH ×4 (08:53→21:49)
--- NOTE | 2018-01-27 09:35 | CP.PCM.PN ---
Subjective - Date & Time of Evaluation Date of Evaluation: 01/27/18 Time of Evaluation: 09:33 - Subjective Subjective: Patient remains lethargic. He is now on meropenem. Objective - Vital Signs/Intake and Output Vital Signs (last 24 hours): Temp Pulse Resp BP Pulse Ox 98.3 F 87 20 89/53 L 93 L 01/27/18 07:16 01/27/18 07:16 01/27/18 07:16 01/27/18 07:16 01/27/18 07:16 Intake and Output: 01/27/18 01/27/18 06:59 18:59 Intake Total 640 Output Total 350 Balance 290 - Medications Medications: Current Medications Acetaminophen (Tylenol 325mg Tab) 650 mg PO Q6 PRN PRN Reason: Pain, moderate (4-7) Last Admin: 01/25/18 14:43 Dose: 650 mg Dextrose (Dextrose 50% Inj) 0 ml IV STAT PRN; Protocol PRN Reason: Hypoglycemia Protocol Dextrose (Glutose 15) 0 gm PO ONCE PRN; Protocol PRN Reason: Hypoglycemia Protocol Glucagon (Glucagen Diagnostic Kit) 0 mg IM STAT PRN; Protocol PRN Reason: Hypoglycemia Protocol Heparin Sodium (Porcine) (Heparin) 5,000 units SC Q8 [facility] Last Admin: 01/27/18 05:43 Dose: 5,000 units Dextrose (Dextrose 5% In Water 1000 Ml) 1,000 mls @ 0 mls/hr IV .Q0M PRN; Protocol PRN Reason: Hypoglycemia Protocol Dextrose/Sodium Chloride (Dextrose 5%/0.45% Ns 1000 Ml) 1,000 mls @ 40 mls/hr IV .Q24H [facility] Last Admin: 01/26/18 09:24 Dose: 40 mls/hr Meropenem 500 mg/ Sodium (Chloride) 100 mls @ 100 mls/hr IVPB Q6 [facility] Last Admin: 01/27/18 05:43 Dose: 100 mls/hr Insulin Aspart (Novolog) 0 unit SC ACHS [facility]; Protocol Last Admin: 01/27/18 08:53 Dose: 2 unit Levothyroxine Sodium (Synthroid) 200 mcg PO DAILY@0630 [facility] Last Admin: 01/27/18 05:44 Dose: 200 mcg Sodium Bicarbonate (Sodium Bicarbonate Tab) 1,300 mg PO BID [facility] Last Admin: 01/26/18 18:23 Dose: 1,300 mg Thiamine HCl (Vitamin B1 Tab) 100 mg PO DAILY [facility] Vitamin A (Vitamin A & D Oint Ud Foilpak) 1 ea TOP BID PRN PRN Reason: Dry mouth Last Admin: 01/25/18 14:43 Dose: 1 ea - Labs Labs: 01/26/18 12:00 01/26/18 12:00 PT 14.4 SECONDS (9.7-12.2) H 01/21/18 12:58 INR 1.3 01/21/18 12:58 APTT 38 SECONDS (21-34) H 01/21/18 12:58 - Constitutional Appears: Other - Head Exam Head Exam: ATRAUMATIC, NORMOCEPHALIC - Neck Exam Neck Exam: absent: Lymphadenopathy, Thyromegaly - Respiratory Exam Respiratory Exam: NORMAL BREATHING PATTERN. absent: Rales, Rhonchi, Wheezes - Cardiovascular Exam Cardiovascular Exam: REGULAR RHYTHM, +S1, +S2. absent: Gallop, Rubs, Murmur - GI/Abdominal Exam GI & Abdominal Exam: Distended, Soft, Normal Bowel Sounds. absent: Tenderness, Mass, Organomegaly - Rectal Exam Rectal Exam: Deferred - Extremities Exam Extremities Exam: Pedal Edema. absent: Calf Tenderness Assessment and Plan (1) Cirrhosis Assessment & Plan: Patient remains lethargic. Will start lactulose. He now has leg edema, so will start furosemide. Consider repeat paracentesis to check cell count. Status: Acute
[2018-01-27] MEDS ORDERED: Albumin Human 25% (12.5 gm/50 ml) IV ONE ×2 (10:31→10:45)
[2018-01-27 11:57] LABS: BASO # 0.1 K/uL (0.0-0.2); BASO % 0.2 % (0.0-2.0); EOS % 0.1 % (0.0-4.0); HEMOGLOBIN 9.4 g/dL (12.0-18.0); LYMPH # 0.8 K/uL (1.0-4.3); LYMPH % 2.8 % (20.0-40.0); MEAN CELL VOLUME 99.7 fL (80.0-94.0); MEAN CORPUSCULAR HEMOGLOBIN 33.3 pg (27.0-31.0); MEAN CORPUSCULAR HGB CONC 33.4 g/dL (33.0-37.0); MEAN PLATELET VOLUME 9.9 fL (7.2-11.7); MONO # 1.3 K/uL (0.0-0.8); MONO % 4.3 % (0.0-10.0); NEUT # 27.7 K/uL (1.8-7.0); NEUT % 92.6 % (50.0-75.0); PLATELET COUNT 185 K/uL (130-400); RBC 2.82 Mil/uL (4.40-5.90); RED CELL DISTRIBUTION WIDTH 15.9 % (11.5-14.5); WHITE BLOOD COUNT 29.9 K/uL (4.8-10.8)
[2018-01-27 12:08] LABS: ALB/GLOB RATIO 0.8 (1.0-2.1); ALBUMIN 2.3 g/dL (3.5-5.0); CALCIUM 8.7 mg/dl (8.6-10.4)
[2018-01-27 12:25] LABS: BANDS 2 % (0-2); LYMPHOCYTE 4 % (20-40); MONOCYTE 3 % (0-10); NEUTROPHIL 91 % (50-75); TOTAL CELLS COUNTED 100
[2018-01-27 12:26] LABS: ANISOCYTOSIS SLIGHT; BURR CELLS SLIGHT; HYPOCHROMIC SLIGHT; PLATELET ESTIMATE NORMAL (NORMAL); POIKILOCYTOSIS SLIGHT; TARGET CELLS SLIGHT
[2018-01-27 12:27] LABS: MICROCYTOSIS SLIGHT
--- NOTE | 2018-01-27 15:36 | CP.PCM.PN ---
Subjective - Date & Time of Evaluation Date of Evaluation: 01/27/18 Time of Evaluation: 15:35 - Subjective Subjective: Nephrology Consultation Note Assessment: critical Acute Kidney Injury (N17.9) likely due to pre-renal with hyperkalemia likely contributed by triple RAAS blockers NAGMA anemia with sepsis ? SBP cirrhosis with ascites Atrial Fibrillation, Dementia, HTN, Hypercholesterolemia, Hyperlipidemia, Hypothyroidism, DM AMS C.Diff + Plan No acute need for renal replacement therapy at this time. Maintain hemodynamics stable. Avoid hypotension. hold ACEI/ARB/aldactone due to recent GILDARDO. avoid acei +arb combination in future as associated with increased risk of GILDARDO/hyperkalemia and hypotension hold norvasc for now Monitor Input/Output, daily weights and renal function with basic metabolic panel s/p IV albumin 125 gm. another dose of albumin 25 gm 01/27/18 IVF to 40 ml/hr started sodium bicarb GI recs appreciated Dose meds/antibiotics for reduced GFR. Avoid fleets enema/magnesium based laxatives. Avoid nephrotoxins/NSAIDs/ iodinated contrast (unless needed emergently) Glycemic control Further work up for as per primary team poor prognosis. pt now DNR/DNI. Thanks for allowing me to participate in care of your patient. Will follow patient with you. Please call if any Qs. had d/w team and family bedside Dr Adriano Del Rosario Office: [phone] CC: unable to obtain reason for consult: GILDARDO HPI: Pit is a 82 y/o M with hx of Atrial Fibrillation, Dementia, HTN, Hypercholesterolemia, Hyperlipidemia, Hypothyroidism, DM who recently was diagnosed and admitted to hospital with UTI with cirrhosis with ascites with neg work up as ? due to steatohepatitis was brought by family as he was very letharg ic yesterday. pt is admitted with sepsis ? SBP and GILDARDO with hyperkalemia. pt was on lasix with aldacone, ramipril and losartan. son bedside and provided hx initially. ROS: Noted events overnight. Patients unable to provide hx Physical Examination: General Appearance: in no acute respiratory distress, ill appearing, lethargic Vitals reviewed and noted as below Head; Atraumatic, normocephalic ENT: no ulcers no thrush. Tongue is midline/very dry. Oropharynx: no rash or ulcers. left auricle superficial abrasion + Neck; supple no lymphadenopathy, no thyromegaly or bruit Lungs: Normal respiratory rate/effort. Breath sounds bilateral with basal crackle Heart: Normal rate. s1s2 normal. No rub or gallop. Extremities: no edema. No varicose veins Neurological: Patient is lethargic but more responsive today Skin: Warm and dry. Normal turgor. No rash. Palpitation: Normal elasticity for age. Abdomen: Abdomen is soft. Bowel sounds +. There is no abdominal tenderness, no guarding/rigidity no organomegaly, ascitic Psych: unable MSK: no joint tenderness or swelling. Digits and nails normal, no deformity : kidney or bladder not palpable however limited exam Labs/imaging reviewed. Past medical history, past surgical history, family history, social history, allergy reviewed and noted as below Family hx: no hx of CKD. Rest non-contributory work up: UA 2+ blood , urine Na <5 renal imaging left renal cyst and small stone normal LVEF on echo Objective - Vital Signs/Intake and Output Vital Signs (last 24 hours): Temp Pulse Resp BP Pulse Ox 98.3 F 87 20 93/60 L 93 L 01/27/18 07:16 01/27/18 07:16 01/27/18 07:16 01/27/18 10:00 01/27/18 07:16 Intake and Output: 01/27/18 01/27/18 06:59 18:59 Intake Total 640 840 Output Total 350 50 Balance 290 790 - Medications Medications: Current Medications Acetaminophen (Tylenol 325mg Tab) 650 mg PO Q6 PRN PRN Reason: Pain, moderate (4-7) Last Admin: 01/25/18 14:43 Dose: 650 mg Dextrose (Dextrose 50% Inj) 0 ml IV STAT PRN; Protocol PRN Reason: Hypoglycemia Protocol Dextrose (Glutose 15) 0 gm PO ONCE PRN; Protocol PRN Reason: Hypoglycemia Protocol Furosemide (Lasix) 20 mg PO DAILY [facility] Last Admin: 01/27/18 10:00 Dose: 20 mg Glucagon (Glucagen Diagnostic Kit) 0 mg IM STAT PRN; Protocol PRN Reason: Hypoglycemia Protocol Heparin Sodium (Porcine) (Heparin) 5,000 units SC Q12H [facility] Last Admin: 01/27/18 14:11 Dose: 5,000 units Dextrose/Sodium Chloride (Dextrose 5%/0.45% Ns 1000 Ml) 1,000 mls @ 40 mls/hr IV .Q24H [facility] Last Admin: 01/26/18 09:24 Dose: 40 mls/hr Meropenem 500 mg/ Sodium (Chloride) 100 mls @ 100 mls/hr IVPB Q6 [facility] Last Admin: 01/27/18 12:53 Dose: 100 mls/hr Insulin Aspart (Novolog) 0 unit SC ACHS [facility]; Protocol Last Admin: 01/27/18 12:53 Dose: 2 unit Levothyroxine Sodium (Synthroid) 200 mcg PO DAILY@0630 [facility] Last Admin: 01/27/18 05:44 Dose: 200 mcg Sodium Bicarbonate (Sodium Bicarbonate Tab) 1,300 mg PO BID [facility] Last Admin: 01/27/18 10:00 Dose: 1,300 mg Thiamine HCl (Vitamin B1 Tab) 100 mg PO DAILY [facility] Last Admin: 01/27/18 10:00 Dose: 100 mg Vitamin A (Vitamin A & D Oint Ud Foilpak) 1 ea TOP BID PRN PRN Reason: Dry mouth Last Admin: 01/25/18 14:43 Dose: 1 ea - Labs Labs: 01/27/18 11:45 01/27/18 11:45 PT 14.4 SECONDS (9.7-12.2) H 01/21/18 12:58 INR 1.3 01/21/18 12:58 APTT 38 SECONDS (21-34) H 01/21/18 12:58
[2018-01-27] MEDS: Dextrose 5%/0.45% NS 1,000 ML IV SCH (17:59)
[2018-01-27] MEDS: Vancomycin 125 MG/5 ML SOLN (ORAL/RECTAL) PO SCH (21:48)
--- NOTE | 2018-01-27 22:12 | CP.PCM.PN ---
Objective - Vital Signs/Intake and Output Vital Signs (last 24 hours): Temp Pulse Resp BP Pulse Ox 97.5 F L 89 19 96/58 L 92 L 01/27/18 16:18 01/27/18 18:00 01/27/18 16:18 01/27/18 16:18 01/27/18 16:18 Intake and Output: 01/27/18 01/28/18 18:59 06:59 Intake Total 840 Output Total 50 Balance 790 - Medications Medications: Current Medications Acetaminophen (Tylenol 325mg Tab) 650 mg PO Q6 PRN PRN Reason: Pain, moderate (4-7) Last Admin: 01/25/18 14:43 Dose: 650 mg Dextrose (Dextrose 50% Inj) 0 ml IV STAT PRN; Protocol PRN Reason: Hypoglycemia Protocol Dextrose (Glutose 15) 0 gm PO ONCE PRN; Protocol PRN Reason: Hypoglycemia Protocol Furosemide (Lasix) 20 mg PO DAILY [facility] Last Admin: 01/27/18 10:00 Dose: 20 mg Glucagon (Glucagen Diagnostic Kit) 0 mg IM STAT PRN; Protocol PRN Reason: Hypoglycemia Protocol Heparin Sodium (Porcine) (Heparin) 5,000 units SC Q12H [facility] Last Admin: 01/27/18 14:11 Dose: 5,000 units Dextrose/Sodium Chloride (Dextrose 5%/0.45% Ns 1000 Ml) 1,000 mls @ 40 mls/hr IV .Q24H [facility] Last Admin: 01/27/18 17:59 Dose: 40 mls/hr Meropenem 500 mg/ Sodium (Chloride) 100 mls @ 100 mls/hr IVPB Q6 [facility] Last Admin: 01/27/18 17:58 Dose: 100 mls/hr Insulin Aspart (Novolog) 0 unit SC ACHS [facility]; Protocol Last Admin: 01/27/18 21:49 Dose: Not Given Levothyroxine Sodium (Synthroid) 200 mcg PO DAILY@0630 [facility] Last Admin: 01/27/18 05:44 Dose: 200 mcg Sodium Bicarbonate (Sodium Bicarbonate Tab) 1,300 mg PO BID [facility] Last Admin: 01/27/18 18:00 Dose: 1,300 mg Thiamine HCl (Vitamin B1 Tab) 100 mg PO DAILY [facility] Last Admin: 01/27/18 10:00 Dose: 100 mg Vancomycin HCl (Vancocin (Oral Or Rectal Use)) 125 mg PO QID [facility]; Protocol Last Admin: 01/27/18 21:48 Dose: 125 mg Vitamin A (Vitamin A & D Oint Ud Foilpak) 1 ea TOP BID PRN PRN Reason: Dry mouth Last Admin: 01/25/18 14:43 Dose: 1 ea - Labs Labs: 01/27/18 11:45 01/27/18 11:45 PT 14.4 SECONDS (9.7-12.2) H 01/21/18 12:58 INR 1.3 01/21/18 12:58 APTT 38 SECONDS (21-34) H 01/21/18 12:58
[2018-01-28] MEDS: Meropenem 500 MG in Sodium Chloride 0.9% 100 ML IVPB SCH ×3 (00:57→12:54)
[2018-01-28] MEDS: Levothyroxine 200 MCG TAB PO SCH (06:57)
[2018-01-28] MEDS: Dextrose 5%/0.45% NS 1,000 ML IV SCH (08:30)
[2018-01-28] MEDS: (Novolog) Insulin Aspart, Recombinant 100 u/ml 10 ml vial SC SCH ×2 (08:36→12:54)
[2018-01-28] MEDS: Vancomycin 125 MG/5 ML SOLN (ORAL/RECTAL) PO SCH ×2 (11:00→13:57)
--- NOTE | 2018-01-28 11:04 | CP.PCM.PN ---
Subjective - Date & Time of Evaluation Date of Evaluation: 01/28/18 Time of Evaluation: 11:00 - Subjective Subjective: Patient is lethargic but arousable. Objective - Vital Signs/Intake and Output Vital Signs (last 24 hours): Temp Pulse Resp BP Pulse Ox 98.5 F 129 H 18 90/62 L 95 01/28/18 07:10 01/28/18 07:10 01/28/18 07:10 01/28/18 10:13 01/28/18 07:10 Intake and Output: 01/28/18 01/28/18 06:59 18:59 Output Total 80 Balance -80 - Medications Medications: Current Medications Acetaminophen (Tylenol 325mg Tab) 650 mg PO Q6 PRN PRN Reason: Pain, moderate (4-7) Last Admin: 01/25/18 14:43 Dose: 650 mg Dextrose (Dextrose 50% Inj) 0 ml IV STAT PRN; Protocol PRN Reason: Hypoglycemia Protocol Dextrose (Glutose 15) 0 gm PO ONCE PRN; Protocol PRN Reason: Hypoglycemia Protocol Furosemide (Lasix) 20 mg IVP STAT [facility] Stop: 01/28/18 10:56 Furosemide (Lasix) 20 mg IVP DAILY [facility] Glucagon (Glucagen Diagnostic Kit) 0 mg IM STAT PRN; Protocol PRN Reason: Hypoglycemia Protocol Heparin Sodium (Porcine) (Heparin) 5,000 units SC Q12H [facility] Last Admin: 01/28/18 01:00 Dose: 5,000 units Dextrose/Sodium Chloride (Dextrose 5%/0.45% Ns 1000 Ml) 1,000 mls @ 40 mls/hr IV .Q24H [facility] Last Admin: 01/28/18 08:30 Dose: Not Given Meropenem 500 mg/ Sodium (Chloride) 100 mls @ 100 mls/hr IVPB Q6 [facility] Last Admin: 01/28/18 06:56 Dose: 100 mls/hr Insulin Aspart (Novolog) 0 unit SC ACHS [facility]; Protocol Last Admin: 01/28/18 08:36 Dose: 2 unit Levothyroxine Sodium (Synthroid) 200 mcg PO DAILY@0630 [facility] Last Admin: 01/28/18 06:57 Dose: 200 mcg Sodium Bicarbonate (Sodium Bicarbonate Tab) 1,300 mg PO BID [facility] Last Admin: 01/28/18 10:13 Dose: 1,300 mg Thiamine HCl (Vitamin B1 Tab) 100 mg PO DAILY [facility] Last Admin: 01/28/18 10:12 Dose: 100 mg Vancomycin HCl (Vancocin (Oral Or Rectal Use)) 125 mg PO QID [facility]; Protocol Last Admin: 01/27/18 21:48 Dose: 125 mg Vitamin A (Vitamin A & D Oint Ud Foilpak) 1 ea TOP BID PRN PRN Reason: Dry mouth Last Admin: 01/25/18 14:43 Dose: 1 ea - Labs Labs: 01/27/18 11:45 01/27/18 11:45 PT 14.4 SECONDS (9.7-12.2) H 01/21/18 12:58 INR 1.3 01/21/18 12:58 APTT 38 SECONDS (21-34) H 01/21/18 12:58 - Constitutional Appears: In Acute Distress - Head Exam Head Exam: ATRAUMATIC, NORMOCEPHALIC - Eye Exam Eye Exam: EOMI, PERRL - Neck Exam Neck Exam: absent: Lymphadenopathy, Thyromegaly - Respiratory Exam Respiratory Exam: NORMAL BREATHING PATTERN. absent: Rales, Rhonchi, Wheezes - Cardiovascular Exam Cardiovascular Exam: REGULAR RHYTHM, +S1, +S2. absent: Gallop, Rubs, Murmur - GI/Abdominal Exam GI & Abdominal Exam: Distended, Firm, Normal Bowel Sounds. absent: Tenderness, Organomegaly - Rectal Exam Rectal Exam: Deferred - Extremities Exam Extremities Exam: Pedal Edema. absent: Calf Tenderness Additional comments: 2+ edema bilateral Assessment and Plan (1) Cirrhosis Assessment & Plan: Ascites continues to reaccumulate. Patient now has significant leg edema bilaterally. SaO2 is poor despite use of a non-rebreather mask. Blood work from today is pending; from yesterrday, the findings were: WBC 29.9, BUN 83, Cr 2.0, eGFR 32. Will request Chest CT scan and paracentesis to check on cell count and improve respiratory status. Status: Acute
[2018-01-28 11:20] LABS: BASO # 0.2 K/uL (0.0-0.2); BASO % 0.5 % (0.0-2.0); EOS % 0.1 % (0.0-4.0); HEMOGLOBIN 9.7 g/dL (12.0-18.0); LYMPH # 0.5 K/uL (1.0-4.3); LYMPH % 1.7 % (20.0-40.0); MEAN CELL VOLUME 100.1 fL (80.0-94.0); MEAN CORPUSCULAR HEMOGLOBIN 32.9 pg (27.0-31.0); MEAN CORPUSCULAR HGB CONC 32.9 g/dL (33.0-37.0); MEAN PLATELET VOLUME 9.8 fL (7.2-11.7); MONO # 1.4 K/uL (0.0-0.8); MONO % 4.4 % (0.0-10.0); NEUT # 29.4 K/uL (1.8-7.0); NEUT % 93.3 % (50.0-75.0); PLATELET COUNT 208 K/uL (130-400); RBC 2.94 Mil/uL (4.40-5.90); RED CELL DISTRIBUTION WIDTH 16.3 % (11.5-14.5); WHITE BLOOD COUNT 31.5 K/uL (4.8-10.8)
[2018-01-28 11:31] LABS: ALB/GLOB RATIO 0.8 (1.0-2.1); ALBUMIN 2.5 g/dL (3.5-5.0); CALCIUM 8.6 mg/dl (8.6-10.4)
[2018-01-28 11:47] LABS: ANISOCYTOSIS SLIGHT; BANDS 3 % (0-2); LYMPHOCYTE 1 % (20-40); MONOCYTE 1 % (0-10); NEUTROPHIL 95 % (50-75); OVALOCYTES SLIGHT; PLATELET ESTIMATE NORMAL (NORMAL); POIKILOCYTOSIS SLIGHT; TARGET CELLS SLIGHT; TOTAL CELLS COUNTED 100
[2018-01-28 11:48] LABS: BURR CELLS SLIGHT
--- NOTE | 2018-01-28 12:39 | CT ---
Date of service: 01/28/18 CT chest without IV contrast Indication: Pneumonia, CHF Technique: Contiguous axial images were obtained through the chest without intravenous contrast enhancement. Sagittal and coronal reconstructions were generated and reviewed. This CT exam was performed using 1 or more of the following dose reduction techniques: Automated exposure control, adjustment of the MAA and/or kV according to patient size, and/or use of iterative reconstruction technique. Radiation dose (DLP): 787.98 MGy-cm. Comparison: 787.98 Findings: Examination limited by motion. Right-sided PICC. The thyroid gland is not visualized. Cardiomegaly. Patchy multifocal infiltrates, predominantly on the right with small regions probable atelectasis noted on the left. Small bilateral pleural effusions and associated compressive consolidations. No pneumothorax. Limited visualization of the noncontrast upper abdomen; peripheral splenic capsule calcification. Nodular hepatic contour. Partially imaged hepatomegaly. Heterogeneous hepatic parenchyma. Extensive ingested debris within the partially imaged stomach. Moderate ascites. Osseous demineralization. Degenerative changes. Chronic appearing right rib fracture deformities. Impression: Examination markedly limited due to motion. Patchy multifocal infiltrates, predominantly on the right with small regions probable atelectasis noted on the left. Small bilateral pleural effusions and associated compressive consolidations. Cardiomegaly. Right-sided PICC. Limited visualization of the noncontrast upper abdomen; peripheral splenic capsule calcification. Nodular hepatic contour. Partially imaged hepatomegaly. Heterogeneous hepatic parenchyma. Extensive ingested debris within the partially imaged stomach. Moderate ascites.
--- NOTE | 2018-01-28 12:47 | CP.PCM.PN ---
Subjective - Date & Time of Evaluation Date of Evaluation: 01/28/18 Time of Evaluation: 09:00 - Subjective Subjective: no new cultures weak and lethrgic Objective - Vital Signs/Intake and Output Vital Signs (last 24 hours): Temp Pulse Resp BP Pulse Ox 98.5 F 91 H 18 98/61 L 95 01/28/18 07:10 01/28/18 11:28 01/28/18 07:10 01/28/18 11:26 01/28/18 07:10 Intake and Output: 01/28/18 01/28/18 06:59 18:59 Output Total 80 Balance -80 - Medications Medications: Current Medications Acetaminophen (Tylenol 325mg Tab) 650 mg PO Q6 PRN PRN Reason: Pain, moderate (4-7) Last Admin: 01/25/18 14:43 Dose: 650 mg Dextrose (Dextrose 50% Inj) 0 ml IV STAT PRN; Protocol PRN Reason: Hypoglycemia Protocol Dextrose (Glutose 15) 0 gm PO ONCE PRN; Protocol PRN Reason: Hypoglycemia Protocol Furosemide (Lasix) 20 mg IVP DAILY [facility] Glucagon (Glucagen Diagnostic Kit) 0 mg IM STAT PRN; Protocol PRN Reason: Hypoglycemia Protocol Heparin Sodium (Porcine) (Heparin) 5,000 units SC Q12H [facility] Last Admin: 01/28/18 01:00 Dose: 5,000 units Meropenem 500 mg/ Sodium (Chloride) 100 mls @ 100 mls/hr IVPB Q6 [facility] Last Admin: 01/28/18 06:56 Dose: 100 mls/hr Insulin Aspart (Novolog) 0 unit SC ACHS [facility]; Protocol Last Admin: 01/28/18 08:36 Dose: 2 unit Levothyroxine Sodium (Synthroid) 200 mcg PO DAILY@0630 [facility] Last Admin: 01/28/18 06:57 Dose: 200 mcg Morphine Sulfate (Morphine) 1 mg IVP Q3H [facility] Sodium Bicarbonate (Sodium Bicarbonate Tab) 1,300 mg PO BID [facility] Last Admin: 01/28/18 10:13 Dose: 1,300 mg Thiamine HCl (Vitamin B1 Tab) 100 mg PO DAILY [facility] Last Admin: 01/28/18 10:12 Dose: 100 mg Vancomycin HCl (Vancocin (Oral Or Rectal Use)) 125 mg PO QID [facility]; Protocol Last Admin: 01/27/18 21:48 Dose: 125 mg Vitamin A (Vitamin A & D Oint Ud Foilpak) 1 ea TOP BID PRN PRN Reason: Dry mouth Last Admin: 01/25/18 14:43 Dose: 1 ea - Labs Labs: 01/28/18 11:10 01/28/18 11:10 PT 14.4 SECONDS (9.7-12.2) H 01/21/18 12:58 INR 1.3 01/21/18 12:58 APTT 38 SECONDS (21-34) H 01/21/18 12:58 - Constitutional Appears: Confused, Chronically Ill - Head Exam Head Exam: NORMOCEPHALIC - Eye Exam Eye Exam: absent: PERRL - ENT Exam ENT Exam: Normal External Ear Exam - Neck Exam Neck Exam: absent: Lymphadenopathy - Respiratory Exam Respiratory Exam: Decreased Breath Sounds - Cardiovascular Exam Cardiovascular Exam: REGULAR RHYTHM - GI/Abdominal Exam GI & Abdominal Exam: Distended, Soft - Rectal Exam Rectal Exam: Deferred - Exam Exam: NORMAL INSPECTION - Extremities Exam Extremities Exam: Pedal Edema. absent: Calf Tenderness - Back Exam Back Exam: absent: CVA tenderness (L), CVA tenderness (R) Assessment and Plan (1) Cirrhosis Status: Acute (2) Hyperkalemia Status: Acute (3) Leukocytosis Status: Acute (4) SOB (shortness of breath) Status: Acute (5) Ascites Status: Acute (6) Hepatic encephalopathy syndrome Status: Acute (7) Hepatic encephalopathy syndrome Status: Acute - Assessment and Plan (Free Text) Assessment: cont rx SBP for thoracentesis poor prognosis
--- NOTE | 2018-01-28 12:56 | CP.PCM.PN ---
Subjective - Date & Time of Evaluation Date of Evaluation: 01/28/18 Time of Evaluation: 12:54 - Subjective Subjective: Nephrology Consultation Note Assessment: critical Acute Kidney Injury (N17.9) likely due to pre-renal with hyperkalemia likely contributed by triple RAAS blockers NAGMA anemia with sepsis ? SBP cirrhosis with ascites Atrial Fibrillation, Dementia, HTN, Hypercholesterolemia, Hyperlipidemia, Hypothyroidism, DM AMS C.Diff + pneumonia Plan d/w family about declining kidney function, minimal urine output, renal replacement herapy its pros/cons. family opted for comfort measures Maintain hemodynamics stable. Avoid hypotension. hold ACEI/ARB/aldactone due to recent GILDARDO. avoid acei +arb combination in future as associated with increased risk of GILDARDO/hyperkalemia and hypotension hold norvasc for now Monitor Input/Output, daily weights and renal function with basic metabolic panel s/p IV albumin 125 gm. another dose of albumin 25 gm 01/27/18 d/c IVF started sodium bicarb GI recs appreciated Dose meds/antibiotics for reduced GFR. Avoid fleets enema/magnesium based laxatives. Avoid nephrotoxins/NSAIDs/ iodinated contrast (unless needed emergently) Glycemic control Further work up for as per primary team poor prognosis. pt now DNR/DNI. recommend palliative care for end of life care Thanks for allowing me to participate in care of your patient. Will follow patient with you. Please call if any Qs. had d/w team and family bedside Dr Adriano Del Rosario Office: [phone] CC: unable to obtain reason for consult: GILDARDO HPI: Pit is a 82 y/o M with hx of Atrial Fibrillation, Dementia, HTN, Hyperc holesterolemia, Hyperlipidemia, Hypothyroidism, DM who recently was diagnosed and admitted to hospital with UTI with cirrhosis with ascites with neg work up as ? due to steatohepatitis was brought by family as he was very lethargic yesterday. pt is admitted with sepsis ? SBP and GILDARDO with hyperkalemia. pt was on lasix with aldacone, ramipril and losartan. son bedside and provided hx initially. ROS: Noted events overnight. Patients unable to provide hx Physical Examination: General Appearance: ill appearing, lethargic Vitals reviewed and noted as below Head; Atraumatic, normocephalic ENT: no ulcers no thrush. Tongue is midline/very dry. Oropharynx: no rash or ulcers. left auricle superficial abrasion + Neck; supple no lymphadenopathy, no thyromegaly or bruit Lungs: Increased respiratory rate/effort. Breath sounds bilateral with basal crackle Heart: Normal rate. s1s2 normal. No rub or gallop. Extremities: no edema. No varicose veins Neurological: Patient is lethargic Skin: Warm and dry. Normal turgor. No rash. Palpitation: Normal elasticity for age. Abdomen: Abdomen is soft. Bowel sounds +. There is no abdominal tenderness, no guarding/rigidity no organomegaly, ascitic Psych: unable MSK: no joint tenderness or swelling. Digits and nails normal, no deformity : kidney or bladder not palpable however limited exam Labs/imaging reviewed. Past medical history, past surgical history, family history, social history, allergy reviewed and noted as below Family hx: no hx of CKD. Rest non-contributory work up: UA 2+ blood , urine Na <5 renal imaging left renal cyst and small stone normal LVEF on echo Objective - Vital Signs/Intake and Output Vital Signs (last 24 hours): Temp Pulse Resp BP Pulse Ox 98.5 F 91 H 18 98/61 L 95 01/28/18 07:10 01/28/18 11:28 01/28/18 07:10 01/28/18 11:26 01/28/18 07:10 Intake and Output: 01/28/18 01/28/18 06:59 18:59 Output Total 80 Balance -80 - Medications Medications: Current Medications Acetaminophen (Tylenol 325mg Tab) 650 mg PO Q6 PRN PRN Reason: Pain, moderate (4-7) Last Admin: 01/25/18 14:43 Dose: 650 mg Dextrose (Dextrose 50% Inj) 0 ml IV STAT PRN; Protocol PRN Reason: Hypoglycemia Protocol Dextrose (Glutose 15) 0 gm PO ONCE PRN; Protocol PRN Reason: Hypoglycemia Protocol Furosemide (Lasix) 20 mg IVP DAILY [facility] Glucagon (Glucagen Diagnostic Kit) 0 mg IM STAT PRN; Protocol PRN Reason: Hypoglycemia Protocol Heparin Sodium (Porcine) (Heparin) 5,000 units SC Q12H [facility] Last Admin: 01/28/18 01:00 Dose: 5,000 units Meropenem 500 mg/ Sodium (Chloride) 100 mls @ 100 mls/hr IVPB Q6 [facility] Last Admin: 01/28/18 06:56 Dose: 100 mls/hr Vancomycin HCl 1 gm/ Sodium (Chloride) 250 mls @ 166.7 mls/hr IVPB Q24H [facility]; Protocol Insulin Aspart (Novolog) 0 unit SC ACHS [facility]; Protocol Last Admin: 01/28/18 08:36 Dose: 2 unit Levothyroxine Sodium (Synthroid) 200 mcg PO DAILY@0630 [facility] Last Admin: 01/28/18 06:57 Dose: 200 mcg Morphine Sulfate (Morphine) 1 mg IVP Q3H [facility] Sodium Bicarbonate (Sodium Bicarbonate Tab) 1,300 mg PO BID [facility] Last Admin: 01/28/18 10:13 Dose: 1,300 mg Thiamine HCl (Vitamin B1 Tab) 100 mg PO DAILY [facility] Last Admin: 01/28/18 10:12 Dose: 100 mg Vancomycin HCl (Vancocin (Oral Or Rectal Use)) 125 mg PO QID [facility]; Protocol Last Admin: 01/27/18 21:48 Dose: 125 mg Vitamin A (Vitamin A & D Oint Ud Foilpak) 1 ea TOP BID PRN PRN Reason: Dry mouth Last Admin: 01/25/18 14:43 Dose: 1 ea - Labs Labs: 01/28/18 11:10 01/28/18 11:10 PT 14.4 SECONDS (9.7-12.2) H 01/21/18 12:58 INR 1.3 01/21/18 12:58 APTT 38 SECONDS (21-34) H 01/21/18 12:58
[2018-01-28] MEDS ORDERED: Vancomycin 1 gm/NS 200 ml 1 GM/200 ML BAG IVPB SCH (14:00)
--- NOTE | 2018-01-28 14:59 | CP.PCM.CON ---
History of Present Illness - History of Present Illness History of Present Illness: Palliative consult requested by Doctor Del Rosario for goals of care discussion Patient is a 82 yo male admitted on 01/21/18 with SOB, AMS and weakness , since the morning of admission. Family reported noticing abdominal distention in the patient. Upon admission , paracentesis was done for ascites drainage. The CT chest was significant for Left lung atelectasis. Per family, patient was recently diagnosed with liver cirrhosis. patient has no hx of ETOH. Patient was placed on lasix 20 mg Iv daily. WBC 31.5. Vanco and Merrem on board. BUN/Dipper Operator 92/2.4. Nephrology consultated. BP 91/61, Hr 91, O2Sat 95 % on high flow O2. Family is concerned with quality of care. palliative care was called to assist with decision making process PMH: A Fib, dementia, HTN, high chlesterol Soc. Hx: . has two sons and daughter involved in care Fam. Hx: denied Review of Systems - Review of Systems All systems: reviewed and no additional remarkable complaints except Review of Systems: ROS unobtainable for patient due to lethargy. ROS obtained from family at bed side. per family, patient has been lethargic and is not interacting. Past Patient History - Infectious Disease Hx of Infectious Diseases: None - Past Medical History & Family History Past Medical History?: Yes - Past Social History Smoking Status: Never Smoked - CARDIAC Hx Cardiac Disorders: Yes Hx Atrial Fibrillation: Yes Hx Hypercholesterolemia: Yes Hx Hypertension: Yes - PULMONARY Hx Respiratory Disorders: No - NEUROLOGICAL Hx Neurological Disorder: Yes HX Cerebrovascular Accident: Yes Hx Dementia: Yes - HEENT Hx HEENT Problems: No - RENAL Hx Chronic Kidney Disease: No - ENDOCRINE/METABOLIC Hx Endocrine Disorders: Yes Hx Diabetes Mellitus Type 2: Yes Hx Hypothyroidism: Yes - HEMATOLOGICAL/ONCOLOGICAL Hx Blood Disorders: No - INTEGUMENTARY Hx Dermatological Problems: Yes Other/Comment: pressure ulcer - MUSCULOSKELETAL/RHEUMATOLOGICAL Hx Musculoskeletal Disorders: Yes Hx Falls: Yes - GASTROINTESTINAL Hx Gastrointestinal Disorders: Yes Other/Comment: acities - GENITOURINARY/GYNECOLOGICAL Hx Genitourinary Disorders: Yes Hx Prostate Problems: Yes - PSYCHIATRIC Hx Psychophysiologic Disorder: No Hx Substance Use: No - SURGICAL HISTORY Hx Surgeries: Yes Hx Thyroidectomy: Yes Other/Comment: prostate surgery - ANESTHESIA Hx Anesthesia: Yes Hx Anesthesia Reactions: No Hx Malignant Hyperthermia: No Has any member of the family had a problem w/ anesthesia?: No Meds Allergies/Adverse Reactions: Allergies Allergy/AdvReac Type Severity Reaction Status Date / Time No Known Allergies Allergy Verified 12/27/17 20:33 - Medications Medications: Current Medications Acetaminophen (Tylenol 325mg Tab) 650 mg PO Q6 PRN PRN Reason: Pain, moderate (4-7) Last Admin: 01/25/18 14:43 Dose: 650 mg Dextrose (Dextrose 50% Inj) 0 ml IV STAT PRN; Protocol PRN Reason: Hypoglycemia Protocol Dextrose (Glutose 15) 0 gm PO ONCE PRN; Protocol PRN Reason: Hypoglycemia Protocol Furosemide (Lasix) 20 mg IVP DAILY [facility] Glucagon (Glucagen Diagnostic Kit) 0 mg IM STAT PRN; Protocol PRN Reason: Hypoglycemia Protocol Heparin Sodium (Porcine) (Heparin) 5,000 units SC Q12H [facility] Last Admin: 01/28/18 13:00 Dose: 5,000 units Meropenem 500 mg/ Sodium (Chloride) 100 mls @ 100 mls/hr IVPB Q6 [facility] Last Admin: 01/28/18 12:54 Dose: 100 mls/hr Vancomycin/Sodium Chloride (Vancomycin 1 Gm/Ns 200 Ml) 1 gm in 200 mls @ 133.333 mls/hr IVPB Q24H [facility]; Protocol Last Admin: 01/28/18 13:57 Dose: 133.333 mls/hr Insulin Aspart (Novolog) 0 unit SC ACHS [facility]; Protocol Last Admin: 01/28/18 12:54 Dose: 2 unit Levothyroxine Sodium (Synthroid) 200 mcg PO DAILY@0630 [facility] Last Admin: 01/28/18 06:57 Dose: 200 mcg Sodium Bicarbonate (Sodium Bicarbonate Tab) 1,300 mg PO BID [facility] Last Admin: 01/28/18 10:13 Dose: 1,300 mg Thiamine HCl (Vitamin B1 Tab) 100 mg PO DAILY [facility] Last Admin: 01/28/18 10:12 Dose: 100 mg Vancomycin HCl (Vancocin (Oral Or Rectal Use)) 125 mg PO QID [facility]; Protocol Last Admin: 01/28/18 13:57 Dose: 125 mg Vitamin A (Vitamin A & D Oint Ud Foilpak) 1 ea TOP BID PRN PRN Reason: Dry mouth Last Admin: 01/25/18 14:43 Dose: 1 ea Physical Exam - Constitutional Appears: In Acute Distress, Chronically Ill - Head Exam Head Exam: ATRAUMATIC, NORMAL INSPECTION, NORMOCEPHALIC - Eye Exam Eye Exam: EOMI, Normal appearance, PERRL Pupil Exam: NORMAL ACCOMODATION, PERRL - ENT Exam ENT Exam: Mucous Membranes Dry - Neck Exam Neck exam: Positive for: Normal Inspection - Respiratory Exam Respiratory Exam: Accessory Muscle Use, Decreased Breath Sounds, Respiratory Distress - Cardiovascular Exam Cardiovascular Exam: Tachycardia, Irregular Rhythm - GI/Abdominal Exam GI & Abdominal Exam: Distended, Firm, Hypoactive Bowel Sounds - Rectal Exam Rectal Exam: Deferred - Exam Exam: NORMAL INSPECTION Additional comments: [place] at bed side - Extremities Exam Extremities exam: Positive for: normal inspection, pedal edema - Back Exam Back exam: NORMAL INSPECTION - Neurological Exam Neurological exam: Alert, Motor Sensory Deficit - Psychiatric Exam Psychiatric exam: Flat Affect - Skin Skin Exam: Dry, Intact, Pallor, Warm Results - Vital Signs Recent Vital Signs: Last Vital Signs Temp 98.5 F 01/28/18 07:10 Pulse 91 H 01/28/18 11:28 Resp 18 01/28/18 07:10 BP 91/61 L 01/28/18 13:58 Pulse Ox 95 01/28/18 07:10 - Labs Result Diagrams: 01/28/18 11:10 01/28/18 11:10 Labs: Laboratory Results - last 24 hr 01/27/18 01/27/18 01/28/18 16:45 21:23 06:07 WBC RBC Hgb Hct MCV MCH MCHC RDW Plt Count MPV Neut % (Auto) Lymph % (Auto) [place] % (Auto) Eos % (Auto) Baso % (Auto) Neut # (Auto) Lymph # (Auto) [place] # (Auto) Eos # (Auto) Baso # (Auto) Neutrophils % (Manual) Band Neutrophils % Lymphocytes % (Manual) Monocytes % (Manual) Platelet Estimate Poikilocytosis (manual Anisocytosis (manual) Macrocytosis (manual) Target Cells Ovalocytes [place] Cells Sodium Potassium Chloride Carbon Dioxide Anion Gap BUN Creatinine Est GFR ( Amer) Est GFR (Non-Af Amer) POC Glucose (mg/dL) 193 H 219 H 241 H Random Glucose Calcium Total Bilirubin AST ALT Alkaline Phosphatase Total Protein Albumin Globulin Albumin/Globulin Ratio 01/28/18 01/28/18 01/28/18 11:10 11:10 11:16 WBC 31.5 H RBC 2.94 L Hgb 9.7 L Hct 29.5 L MCV 100.1 H MCH 32.9 H MCHC 32.9 L RDW 16.3 H Plt Count 208 MPV 9.8 Neut % (Auto) 93.3 H Lymph % (Auto) 1.7 L Wheeler % (Auto) 4.4 Eos % (Auto) 0.1 Baso % (Auto) 0.5 Neut # (Auto) 29.4 H Lymph # (Auto) 0.5 L Wheeler # (Auto) 1.4 H Eos # (Auto) 0.0 Baso # (Auto) 0.2 Neutrophils % (Manual) 95 H Band Neutrophils % 3 H Lymphocytes % (Manual) 1 L Monocytes % (Manual) 1 Platelet Estimate Normal Poikilocytosis (manual Slight Anisocytosis (manual) Slight Macrocytosis (manual) Slight Target Cells Slight Ovalocytes Slight [place] Cells Slight Sodium 144 Potassium 3.9 Chloride 114 H Carbon Dioxide 16 L Anion Gap 18 BUN 92 H Creatinine 2.4 H Est GFR ( Amer) 31 Est GFR (Non-Af Amer) 26 POC Glucose (mg/dL) 200 H Random Glucose 180 H Calcium 8.6 Total Bilirubin 1.8 H AST 33 ALT 28 Alkaline Phosphatase 182 H Total Protein 5.5 L Albumin 2.5 L Globulin 3.1 Albumin/Globulin Ratio 0.8 L Assessment & Plan - Assessment and Plan (Free Text) Assessment: Palliative consult DNR/DNI, PPS 10% I reviewed medical records, all diagnostic studies, examined patient in the bed, discussed goals of care with family Patient examined in bed, alert, very lethargic, with high flow of O2 via face mask. Patient keeps his eyes closed and is not reacting to touch or to voice. Breathing is labored with use of accessory muscles. O2sat 95%. Abdomen is softly distended, decreased bowel sounds. Family meeting attended by two sons, one daughter and grandson. I reviewed patient's clinical presentation and elicited family's understanding and expectations. Family admitted to sadness and thinking about comfort measures. Family stated understanding of clinical presentation mostly related to liver cirrhosis and ascites. They understand that ascites are recurrent . Family does not want patient to undergo further agressive interventions including paracentesis. Family also understand that patient can not be fed by mouth due to lethargy and risks of aspiration and inability for PEG insertion due to ascites. NGT feeding discussed as a short term opion including risks of worsening of breathing and family decided against it. We discussed comfort measures. I offered plenty of information about Hospice care. Family agreed that this type of care is ehat they would want at the comfort of patient's home. family would want to discontinue all IV antibiotics and IV fluids. Family wanted patient home [facility] I discussed this with Vitaly FREDERICK on the floor. Impression * Chronically ill male in acute respiratory distress 2nd to ascites due to liver cirrhosis * Lethargy * Distended abdomen * Family concerned with comfort level * Family advocates for comfort measures only * Patient was already made DNR/DNI prior to my visit Suggestion * Continue O2 supplement * Discontinue IV fluids and all IV antibiotics * Symptoms management only * Hospice evaluation for in home hospice care Advance care planing 35 min
[2018-01-28 17:06] VITALS: BP 59/40; PULSE 72; RESP 16; TEMP 98.2; O2SAT 70
--- NOTE | 2018-01-28 17:35 | CP.PCM.PRO ---
Pronouncement of Note - Clinical Findings Physical Exam: No Response Verbal/Painful Stimuli, Absent Peripheral Puls es{Carotid & Femoral}, Absent Heart & Breath Sounds, No Pupillary Light Reflex, No Corneal Reflex, Absence of Vital Signs - Pronouncement Time Time of Pronouncement of : 17:15 - Notifications Pronouncement Notifications: Family Notified, Atending Notified Pipefitter Notified: No - [place] [id number]
--- NOTE | 2018-01-28 22:19 | CP.PCM.DIS ---
Provider - Provider Date of Admission: 01/21/18 15:08 Attending physician: Ayan Muro MD Hospital Course - Lab Results Lab Results: Micro Results 01/26/18 13:44 Urine,[place] Urine Culture - Final No Growth (<1,000 CFU/ML) 01/21/18 13:00 Blood Blood Culture - Final NO GROWTH AFTER 5 DAYS 01/21/18 13:00 Blood Gram Stain - Final TEST NOT PERFORMED 01/21/18 13:30 Blood Blood Culture - Final NO GROWTH AFTER 5 DAYS 01/21/18 13:30 Blood Gram Stain - Final TEST NOT PERFORMED 01/22/18 12:51 Abdominal Fluid Gram Stain - Final 01/22/18 12:51 Abdominal Fluid Body Fluid Culture - Final No growth. 01/22/18 12:39 Urine Urine Culture - Final No Growth (<1,000 CFU/ML) Most Recent Lab Values WBC 31.5 K/uL (4.8-10.8) H 01/28/18 11:10 RBC 2.94 Mil/uL (4.40-5.90) L 01/28/18 11:10 Hgb 9.7 g/dL (12.0-18.0) L 01/28/18 11:10 Hct 29.5 % (35.0-51.0) L 01/28/18 11:10 MCV 100.1 fL (80.0-94.0) H 01/28/18 11:10 MCH 32.9 pg (27.0-31.0) H 01/28/18 11:10 MCHC 32.9 g/dL (33.0-37.0) L 01/28/18 11:10 RDW 16.3 % (11.5-14.5) H 01/28/18 11:10 Plt Count 208 K/uL (130-400) 01/28/18 11:10 MPV 9.8 fL (7.2-11.7) 01/28/18 11:10 Neut % (Auto) 93.3 % (50.0-75.0) H 01/28/18 11:10 Lymph % (Auto) 1.7 % (20.0-40.0) L 01/28/18 11:10 [place] % (Auto) 4.4 % (0.0-10.0) 01/28/18 11:10 Eos % (Auto) 0.1 % (0.0-4.0) 01/28/18 11:10 Baso % (Auto) 0.5 % (0.0-2.0) 01/28/18 11:10 Neut # (Auto) 29.4 K/uL (1.8-7.0) H 01/28/18 11:10 Lymph # (Auto) 0.5 K/uL (1.0-4.3) L 01/28/18 11:10 [place] # (Auto) 1.4 K/uL (0.0-0.8) H 01/28/18 11:10 Eos # (Auto) 0.0 K/uL (0.0-0.7) 01/28/18 11:10 Baso # (Auto) 0.2 K/uL (0.0-0.2) 01/28/18 11:10 Neutrophils % (Manual) 95 % (50-75) H 01/28/18 11:10 Band Neutrophils % 3 % (0-2) H 01/28/18 11:10 Lymphocytes % (Manual) 1 % (20-40) L 01/28/18 11:10 Monocytes % (Manual) 1 % (0-10) 01/28/18 11:10 Eosinophils % (Manual) 1 % (0-4) 01/25/18 06:54 Toxic Granulation Present 01/21/18 12:58 Platelet Estimate Normal (NORMAL) 01/28/18 11:10 Large Platelets Present 01/25/18 06:54 Polychromasia Slight 01/25/18 06:54 Hypochromasia (manual) Slight 01/27/18 11:45 Poikilocytosis (manual Slight 01/28/18 11:10 Anisocytosis (manual) Slight 01/28/18 11:10 Microcytosis (manual) Slight 01/27/18 11:45 Macrocytosis (manual) Slight 01/28/18 11:10 Target Cells Slight 01/28/18 11:10 Tear Drop Cells Slight 01/26/18 12:00 Ovalocytes Slight 01/28/18 11:10 [place] Cells Slight 01/28/18 11:10 Acanthocytes (Spur) Slight 01/26/18 12:00 PT 14.4 SECONDS (9.7-12.2) H 01/21/18 12:58 INR 1.3 01/21/18 12:58 APTT 38 SECONDS (21-34) H 01/21/18 12:58 Puncture Site Rradial 01/23/18 19:30 pCO2 31 mm/Hg (35-45) L 01/23/18 19:30 pO2 79 mm/Hg (80-100) L 01/23/18 19:30 HCO3 19.6 mmol/L (21-28) L 01/23/18 19:30 ABG pH 7.36 (7.35-7.45) 01/23/18 19:30 ABG Total CO2 18.5 mmol/L (22-28) L 01/23/18 19:30 ABG O2 Saturation 96.6 % (95-98) 01/23/18 19:30 ABG Base Excess -6.8 mmol/L (-2.0-3.0) L 01/23/18 19:30 John Test Pos 01/23/18 19:30 ABG Potassium 3.8 mmol/L (3.6-5.2) 01/23/18 19:30 A-a O2 Difference 110.0 mm/Hg 01/23/18 19:30 Respiratory Index 1.4 01/23/18 19:30 Sodium 146.0 mmol/l (132-148) 01/23/18 19:30 Chloride 118.0 mmol/L (98-107) H 01/23/18 19:30 Glucose 213 mg/dl (75-110) H 01/23/18 19:30 Lactate 1.8 mmol/L (0.7-2.1) 01/23/18 19:30 Liter Flow 3.0 01/23/18 19:30 FiO2 32.0 % 01/23/18 19:30 Sodium 144 mmol/L (132-148) 01/28/18 11:10 Potassium 3.9 mmol/L (3.6-5.2) 01/28/18 11:10 Chloride 114 mmol/L (98-107) H 01/28/18 11:10 Carbon Dioxide 16 mmol/L (22-30) L 01/28/18 11:10 Anion Gap 18 (10-20) 01/28/18 11:10 BUN 92 mg/dL (9-20) H 01/28/18 11:10 Creatinine 2.4 mg/dL (0.8-1.5) H 01/28/18 11:10 Est GFR ( Amer) 31 01/28/18 11:10 Est GFR (Non-Af Amer) 26 01/28/18 11:10 POC Glucose (mg/dL) 202 mg/dL (65-110) H 01/28/18 16:47 Random Glucose 180 mg/dL (75-110) H 01/28/18 11:10 Lactic Acid 1.7 mmol/L (0.7-2.1) 01/26/18 18:20 Calcium 8.6 mg/dl (8.6-10.4) 01/28/18 11:10 Phosphorus 3.4 mg/dL (2.5-4.5) 01/26/18 12:00 Magnesium 2.2 mg/dL (1.6-2.3) 01/26/18 12:00 Total Bilirubin 1.8 mg/dL (0.2-1.3) H 01/28/18 11:10 Direct Bilirubin 0.9 mg/dL (0.0-0.4) H 01/23/18 07:51 AST 33 U/L (17-59) 01/28/18 11:10 ALT 28 U/L (21-72) 01/28/18 11:10 Alkaline Phosphatase 182 U/L (38-126) H 01/28/18 11:10 Ammonia 40 umol/L (9-33) H 01/24/18 07:00 Troponin I 0.0170 ng/mL (0.00-0.120) 01/21/18 14:21 NT-Pro-B Natriuret Pep 1770 pg/mL (0-900) H 01/21/18 14:21 Total Protein 5.5 g/dL (6.3-8.3) L 01/28/18 11:10 Albumin 2.5 g/dL (3.5-5.0) L 01/28/18 11:10 Globulin 3.1 gm/dL (2.2-3.9) 01/28/18 11:10 Albumin/Globulin Ratio 0.8 (1.0-2.1) L 01/28/18 11:10 Lipase 147 U/L (23-300) 01/21/18 14:21 TSH 3rd Generation 0.44 mIU/L (0.46-4.68) L 01/21/18 14:21 Arterial Blood Potassium 3.8 mmol/L (3.6-5.2) 01/23/18 19:30 Urine Color Veronica (YELLOW) 01/27/18 05:00 Urine Clarity Hazy (Clear) 01/27/18 05:00 Urine pH 5.0 (5.0-8.0) 01/27/18 05:00 Ur Specific [place] 1.023 (1.003-1.030) 01/27/18 05:00 Urine Protein 1+ mg/dL (NEGATIVE) H 01/27/18 05:00 Urine Glucose (UA) Normal mg/dL (Normal) 01/27/18 05:00 Urine Ketones Negative mg/dL (NEGATIVE) 01/27/18 05:00 Urine Blood 3+ (NEGATIVE) H 01/27/18 05:00 Urine Nitrate Negative (NEGATIVE) 01/27/18 05:00 Urine Bilirubin Negative (NEGATIVE) 01/27/18 05:00 Urine Urobilinogen Normal mg/dL (0.2-1.0) 01/27/18 05:00 Ur Leukocyte Esterase 2+ Derek/uL (Negative) H 01/27/18 05:00 Urine WBC (Auto) 29 /hpf (0-5) H 01/27/18 05:00 Urine RBC (Auto) 103 /hpf (0-3) H 01/27/18 05:00 Ur Squamous Epith Cells < 1 /hpf (0-5) 01/27/18 05:00 Urine Bacteria Rare (<OCC) 01/27/18 05:00 Hyaline Casts 3-5 /lpf (0-2) H 01/27/18 05:00 Granular Casts (Auto) 3 /lpf (0-1) 01/27/18 05:00 Ur Random Sodium 6 mmol/L 01/28/18 15:40 Fluid Source Peritoneal 01/22/18 12:51 Fluid Appearance Sl cloudy (CLEAR) 01/22/18 12:51 Fluid WBC 1277.0 /mm3 (0.0-300.0) H 01/22/18 12:51 Fluid RBC 1068.0 /mm3 (0.0-0.0) H 01/22/18 12:51 Fluid Tot Cell Count 100 (0-0) H 01/22/18 12:51 Fluid Neutrophils 88.0 % (0-0) H 01/22/18 12:51 Fluid Lymphocytes 2.0 % (0-0) H 01/22/18 12:51 Fld Monocyte/Macrophag 10 % (0-0) H 01/22/18 12:51 Fluid Comment 01/22/18 12:51 C. difficile Ag & Toxin Positive (NEGATIVE) H 01/27/18 05:31 Discharge Exam - Head Exam Head Exam: ATRAUMATIC, NORMAL INSPECTION, NORMOCEPHALIC Discharge Plan - Follow Up Plan Condition: FAIR Disposition: WITH WITHOUT AUTOPSY
--- NOTE | 2018-01-29 01:31 | PN ---
DATE: 01/27/2018 SUBJECTIVE: The patient, Luz, is weak. His WBC is going up. He is afebrile. His ascites has gotten big. He is weak. He is drowsy and he is tachypneic. PHYSICAL EXAMINATION: VITAL SIGNS: BP 96/58, pulse 91, respiratory rate 19, temperature 97.5. LUNGS: Bilateral scattered rhonchi. CARDIOVASCULAR SYSTEM: S1 and S2, regular. ABDOMEN: Ascites present. Bowel sounds are diminished. ASSESSMENT: 1. Ascites, rule out spontaneous bacterial peritonitis. 2. Acute on chronic kidney disease. 3. Diabetes. 4. Cerebral atherosclerosis, status post multiple cerebrovascular accidents. PLAN: Supportive care. Th patient is DNR/DNI. I discussed the case with daughter. She understands the patient's condition is poor. Ayan Muro MD
--- NOTE | 2018-01-29 05:46 | HP ---
HISTORY OF PRESENT ILLNESS: The patient, Luz, is . He is DNR/DNI. Family on the bedside. I explained to them. The patient's general condition which was extremely poor with extremely poor prognosis and massive ascites, worsening ascites. Hemodynamical instability with poor general condition with poor overall prognosis. PHYSICAL EXAMINATION: VITAL SIGNS: Blood pressure 59/40, pulse 72, respiratory rate 16, temperature 98.2. LUNGS: Bilateral rhonchi. CVS: S2 and S2, regular. ABDOMEN: Massive ascites. ASSESSMENT: 1. Spontaneous bacterial peritonitis. 2. 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 3. Acute kidney injury. 4. Ischemic encephalopathy. PLAN: The patient later on . Supportive care. No aggressive measures were taken and family aware of the patient's condition. Ayan Muro MD
== END 2018-01-28 21:04 | DRG 871 ==
LOC: C.ER 12:07 → C.9E 15:08 → C.5S 17:57
PROVIDERS: ADMIT Internal Medicine; ATTEND Internal Medicine
PROC: 0W9G3ZZ Drainage of Peritoneal Cavity, Percutaneous Approach (ICD-10-PCS; principal; 2018-01-22)
PROC: 02HV33Z Insertion of Infusion Device into Superior Vena Cava, Percutaneous Approach (ICD-10-PCS; 2018-01-24)
PROC: B548ZZA Ultrasonography of Superior Vena Cava, Guidance (ICD-10-PCS; 2018-01-24)
DX: A41.9 Sepsis, unspecified organism (principal); K65.2 Spontaneous bacterial peritonitis; G92 Toxic encephalopathy; K72.00 Acute and subacute hepatic failure without coma; J18.9 Pneumonia, unspecified organism; N17.9 Acute kidney failure, unspecified; E87.2 Acidosis; N39.0 Urinary tract infection, site not specified; R18.8 Other ascites; K76.6 Portal hypertension; E87.5 Hyperkalemia; K74.69 Other cirrhosis of liver; K75.81 Nonalcoholic steatohepatitis (NASH); Z51.5 Encounter for palliative care; I48.91 Unspecified atrial fibrillation; E78.00 Pure hypercholesterolemia, unspecified; Z66 Do not resuscitate; E11.22 Type 2 diabetes mellitus with diabetic chronic kidney disease; E86.0 Dehydration; I12.9 Hypertensive chronic kidney disease with stage 1 through stage 4 chronic kidney disease, or unspecified chronic kidney disease; I67.2 Cerebral atherosclerosis; N18.9 Chronic kidney disease, unspecified; R09.02 Hypoxemia; Z86.73 Personal history of transient ischemic attack (TIA), and cerebral infarction without residual deficits; L89.90 Pressure ulcer of unspecified site, unspecified stage